=== PATIENT | female | born 1985 | race Caucasian/White ===

== ENCOUNTER 2016-11-18 11:12 | Emergency (ER) | payer MEDICAID ==
[2016-11-18] MEDS ORDERED: ASPIRIN 81 MG TABLET, CHEWABLE PO ONE (11:28)
--- NOTE | 2016-11-18 11:32 | ER Document Report ---
ED Medical Screen (RME) - General Stated Complaint: CHEST/BACK/ARM PAIN Notes: Left-sided chest pain radiation to the arm for several weeks - Related Data Allergies/Adverse Reactions: erythromycin base [Erythromycin Base] Allergy (Unknown, Verified 11/18/16 11:28) Past Medical History Past Surgical History: Reports: Hx Bowel Surgery - polyps removed, Hx Orthopedic Surgery - spinal fusion Physical Exam - Vital signs Vitals: Temp Pulse Resp BP Pulse Ox 98.3 F 106 H 18 130/77 H 98 11/18/16 11:25 11/18/16 11:25 11/18/16 11:25 11/18/16 11:25 11/18/16 11:25 Course - Vital Signs Vital signs: Temp Pulse Resp BP Pulse Ox 98.3 F 106 H 18 130/77 H 98 11/18/16 11:25 11/18/16 11:25 11/18/16 11:25 11/18/16 11:25 11/18/16 11:25
[2016-11-18 12:10] LABS: ABSOLUTE EOSINOPHILS # (AUTO) 0.1 10^3/uL (0.0-0.6); ABSOLUTE LYMPHOCYTES (AUTO) 1.7 10^3/uL (0.5-4.7); ABSOLUTE MONOCYTES (AUTO) 0.6 10^3/uL (0.1-1.4); BASOPHILS % (AUTO) 0.6 % (0-2); EOSINOPHILS % (AUTO) 1.8 % (0-6); HEMATOCRIT 38.6 % (36.0-47.0); HEMOGLOBIN 12.4 g/dL (12.0-15.5); HGB HCT DIFFERENCE -1.4; LYMPHOCYTES % (AUTO) 26.1 % (13-45); MEAN CORPUSCULAR VOLUME 97 fl (80-97); MONOCYTES % (AUTO) 9.7 % (3-13); RED BLOOD COUNT 3.98 10^6/uL (3.72-5.28); RED CELL DISTRIBUTION WIDTH 13.7 % (11.5-14.0); SEGMENTED NEUTROPHILS % (AUTO) 61.8 % (42-78); WHITE BLOOD COUNT 6.5 10^3/uL (4.0-10.5)
[2016-11-18 12:27] LABS: ALANINE AMINOTRANSFERASE 24 U/L (9-52); ALBUMIN 3.7 g/dL (3.5-5.0); ALKALINE PHOSPHATASE 110 U/L (38-126); ANION GAP 11 (5-19); ASPARTATE AMINO TRANSFERASE 26 U/L (14-36); BILIRUBIN,TOTAL 0.3 mg/dL (0.2-1.3); BLOOD UREA NITROGEN 17 mg/dL (7-20); CALCIUM 9.5 mg/dL (8.4-10.2); CARBON DIOXIDE 25 mmol/L (22-30); CHLORIDE 105 mmol/L (98-107); CREATINE KINASE 77 U/L (30-135); CREATININE RESULT 0.66 mg/dL (0.52-1.25); GLUCOSE 79 mg/dL (75-110); POTASSIUM 3.8 mmol/L (3.6-5.0); SODIUM 140.9 mmol/L (137-145); TOTAL PROTEIN 6.2 g/dL (6.3-8.2)
[2016-11-18 12:39] LABS: CREATINE KINASE MB 0.63 ng/mL (<4.55)
[2016-11-18 12:43] LABS: TROPONIN I < 0.012 ng/mL
[2016-11-18] MEDS ORDERED: METOCLOPRAMIDE HCL ORAL SOLN 10 MG/10 ML UDCUP PO ONE (13:05)
[2016-11-18] MEDS ORDERED: LIDOCAINE 2% VISCOUS SOLN 20 ML UDCUP PO ONE (13:05)
[2016-11-18] MEDS ORDERED: MAG HYDROX/AL HYDROX/SIMETH SUSP 30 ML UDCUP PO ONE (13:05)
[2016-11-18] MEDS ORDERED: NORMAL SALINE 1000 ML 1,000 ML IV ONE (13:07)
[2016-11-18] MEDS ORDERED: KETOROLAC TROMETHAMINE INJ/PF 30 MG/1 ML SDV IV ONE (13:45)
[2016-11-18] MEDS ORDERED: NAPROXEN 250 MG TABLET PO ONE (13:46)
[2016-11-18 14:11] LABS: APPEARANCE,URINE CLOUDY; BILIRUBIN,URINE NEGATIVE (NEGATIVE); GLUCOSE, URINE NEGATIVE (NEGATIVE); KETONES,URINE NEGATIVE (NEGATIVE); LEUKOCYTE ESTERASE,URINE MODERATE (NEGATIVE); NITRITE,URINE NEGATIVE (NEGATIVE); PROTEIN,URINE NEGATIVE (NEGATIVE); URINE SPECIFIC GRAVITY 1.025; UROBILINOGEN,URINE NEGATIVE mg/dL (<2.0)
[2016-11-18 15:19] VITALS: BP 116/72
--- NOTE | 2016-11-18 15:20 | ER Document Report ---
ED Cardiac - General Chief Complaint: Chest Pain Stated Complaint: CHEST/BACK/ARM PAIN Mode of Arrival: Ambulatory Information source: Patient Notes: 31-year-old well-appearing female presents to the emergency department complaining of intermittently persistent substernal burning type pain over the last. Patient is also complaining of low back pain. Reports history of chronic low back pain with previous back surgery and followed by pain management clinic. Denies new injury or fall, extremity weakness/numbness/ tingling, saddle numbness, incontinence, urinary retention. Reports history of GERD and states her pain in her mid chest/sternal area is similar in quality and intensity as her acid reflux and worse after eating however seems to be lasting more than the usual. States does not radiate. Also reports has been having left arm numbness in the mornings and states is unsure if this may be because of how she is sleeping. States her arm numbness does not appear to be related to her substernal. Denies fever or recent illness, shortness of breath , nausea or vomiting. TRAVEL OUTSIDE OF THE [place] IN LAST 30 DAYS: No - HPI Is the pain a: Chronic problem Chest pain location: Substernal, Back Chest pain radiation location: None Severity now: Moderate Severity at worst: Moderate Pain level currently: 3 Chest pain precipitating factors: Eating Cardiac risk factors: Smoker Positive cardiac history: No Similar symptoms previously: Yes Recently seen / treated by doctor: No - Related Data Allergies/Adverse Reactions: erythromycin base [Erythromycin Base] Allergy (Unknown, Verified 11/18/16 11:28) Past Medical History - General Information source: Patient - Social History Smoking Status: Current Every Day Smoker Chew tobacco use (# tins/day): No Frequency of alcohol use: Social Drug Abuse: None Lives with: Family Family History: Reviewed & Not Pertinent Patient has suicidal ideation: No Patient has homicidal ideation: No Renal/ Medical History: Denies: Hx Peritoneal Dialysis GI Medical History: Reports: Hx Gastroesophageal Reflux Disease Psychiatric Medical History: Reports: Hx Anxiety, Hx Depression Past Surgical History: Reports: Hx Bowel Surgery - polyps removed, Hx Orthopedic Surgery - spinal fusion - Immunizations Hx Diphtheria, Pertussis, Tetanus Vaccination: Yes Review of Systems - Review of Systems Constitutional: No symptoms reported EENT: No symptoms reported Cardiovascular: See HPI Respiratory: No symptoms reported Gastrointestinal: See HPI Genitourinary: No symptoms reported Female Genitourinary: No symptoms reported Musculoskeletal: See HPI Skin: No symptoms reported Hematologic/Lymphatic: No symptoms reported Neurological/Psychological: No symptoms reported -: Yes All other systems reviewed and negative Physical Exam - Vital signs Vitals: Temp Pulse Resp BP Pulse Ox 98.3 F 106 H 18 130/77 H 98 11/18/16 11:25 11/18/16 11:25 11/18/16 11:25 11/18/16 11:25 11/18/16 11:25 Interpretation: Normal - General General appearance: Appears well, Alert In distress: None - HEENT Head: Normocephalic, Atraumatic Eyes: Normal Pupils: PERRL - Respiratory Respiratory status: No respiratory distress Chest status: Nontender Breath sounds: Normal Chest palpation: Normal - Cardiovascular Rhythm: Regular Heart sounds: Normal auscultation Murmur: No Pulses: Normal: Radial, Posterior tibial, Dorsalis pedis Normal capillary refill: Yes - Abdominal Inspection: Normal Distension: No distension Bowel sounds: Normal Tenderness: Nontender. No: Tender, McBurney's point, Zuñiga's sign, Guarding, Rebound, Other Organomegaly: No organomegaly - Back Back: Tender - Mild tenderness to palpation to bilateral paraspinal musculature lumbar level. Full range of motion without paresthesias or neurological deficits.. No: Normal, Nontender, Deformity/step-off, CVA tenderness, Vertebra tenderness, Scars, Scoliosis, Wounds, Other - Extremities General upper extremity: Normal inspection, Nontender, Normal color, Normal ROM , Normal strength, Normal temperature. No: Tender, Edema General lower extremity: Normal inspection, Nontender, Normal color, Normal ROM , Normal strength, Normal temperature, Normal weight bearing. No: Tender, Edema , Oxana's sign - Neurological Neuro grossly intact: Yes Cognition: Normal Orientation: AAOx4 Danilo Coma Scale Eye Opening: Spontaneous Danilo Coma Scale Verbal: Oriented Danilo Coma Scale Motor: Obeys Commands Danilo Coma Scale Total: 15 Speech: Normal Motor strength normal: LUE, RUE, LLE, RLE Sensory: Normal - Psychological Associated symptoms: Normal affect, Normal mood - Skin Skin Temperature: Warm Skin Moisture: Dry Skin Color: Normal Course - Re-evaluation Re-evalutation: 11/18/16 15:30 Patient hemodynamically stable, in no distress, afebrile, and very well- appearing. Tolerating oral fluids without difficulty or vomiting. Patient reports substernal burning pain completely resolved after GI cocktail. Substernal pain not suggestive of cardiac or vascular etiology at this time. Chest x-ray and labs including cardiac enzymes and d-dimer unremarkable. The patient presents with back pain without signs of spinal cord compression, cauda equina syndrome, infection, aneurysm, or other serious etiology. The patient is neurologically intact, independently and steadily ambulatory without paresthesias or neurological deficits. Given the extremely low risk of these diagnoses further testing and evaluation for these possibilities does not appear to be indicated at this time. Patient appears stable for discharge and agrees with home care, follow-up with PCP, ED return precautions. - Vital Signs Vital signs: Temp Pulse Resp BP Pulse Ox 98.3 F 106 H 28 H 116/72 94 11/18/16 15:48 11/18/16 11:25 11/18/16 15:01 11/18/16 15:00 11/18/16 15:01 Selected Entries 11/18/16 11/18/16 11/18/16 14:00 14:01 15:00 Heart Rate ( 85 Monitors) Respiratory 18 Rate Blood Pressure 116/72 Blood Pressure 86 Mean O2 Sat by Pulse 96 Oximetry - Laboratory Result Diagrams: 11/18/16 11:50 11/18/16 11:50 Laboratory results interpreted by me: 11/18/16 11/18/16 11:50 13:30 Total Protein 6.2 L Ur Leukocyte Esterase MODERATE H - Diagnostic Test Radiology reviewed: Image reviewed, Reports reviewed - EKG Interpretation by Co EKG shows normal: Sinus rhythm, Pearson, Intervals, QRS Complexes, ST-T Waves Rate: Normal Rhythm: NSR When compared to previous EKG there are: No significant change Discharge - Discharge Clinical Impression: Substernal chest pain, Epigastric burning sensation Low back pain Qualifiers: Chronicity: chronic Back pain laterality: bilateral Sciatica presence: without sciatica Qualified Code(s): M54.5 - Low back pain Condition: Stable Disposition: HOME, SELF-CARE Instructions: Chest Pain of Unclear Cause ([facility]), Evaluation of Upper Abdominal Pain ([facility]), Antacid Therapy ([facility]), Acid-Suppressing Medication ([facility]), Chronic Back Pain ([facility]), Chronic Pain Control ([facility]), Low-Fat Diet ([facility]) Additional Instructions: Follow-up with your primary care provider in the next 1-2 days. Return to the Emergency Department for any worsening symptoms or concerns. Prescriptions: Ranitidine HCl [Zantac 150 mg Tablet] 150 mg PO BID #30 tablet Forms: Elevated Blood Pressure Referrals: ODILIA MALDONADO MD [ACTIVE STAFF] - Follow up in 3-5 days
--- NOTE | 2016-11-18 18:33 | EKG REPORT ---
SEVERITY:- BORDERLINE ECG - SINUS RHYTHM BORDERLINE T ABNORMALITIES, INFERIOR LEADS : Confirmed by: Beckie Cotton MD 18-Nov-2016 18:32:56
== END 2016-11-18 15:48 | disposition home or self-care (01) ==
LOC: ER 11:12
DX: R07.89 Other chest pain (principal); R19.8 Other specified symptoms and signs involving the digestive system and abdomen; R20.0 Anesthesia of skin; M54.5 Low back pain; G89.29 Other chronic pain; F17.200 Nicotine dependence, unspecified, uncomplicated; Z98.890 Other specified postprocedural states; Z87.19 Personal history of other diseases of the digestive system; Z88.1 Allergy status to other antibiotic agents
CPT/HCPCS: 93005; 99285; 96360; 36415; 87086; 82553; 82550; 84703; 85025; 80053; 81001; 84484; 85379; 71010; 93010; J3490; J7030

== ENCOUNTER 2016-12-01 13:44 | Emergency (ER) | payer MEDICAID ==
--- NOTE | 2016-12-01 13:51 | ER Document Report ---
ED Medical Screen (RME) - General Stated Complaint: FACIAL SWELLING Time seen by provider: 13:50 Mode of Arrival: Ambulatory Information source: Patient Notes: 31-year-old female complaining of dental abscess lower left. She's been on amoxicillin and keep flex and the swelling developed and was told to come to the emergency department. No fever. I have greeted and performed a rapid initial assessment of this patient. A comprehensive ED assessment, evaluation of the patient, analysis of test results , and completion of the medical decision making process will be contacted by additional ED providers. TRAVEL OUTSIDE OF THE [place] IN LAST 30 DAYS: No - Related Data Allergies/Adverse Reactions: erythromycin base [Erythromycin Base] Allergy (Unknown, Verified 11/18/16 11:28) Past Medical History Renal/ Medical History: Denies: Hx Peritoneal Dialysis GI Medical History: Reports: Hx Gastroesophageal Reflux Disease Psychiatric Medical History: Reports: Hx Anxiety, Hx Depression Past Surgical History: Reports: Hx Bowel Surgery - polyps removed, Hx Orthopedic Surgery - spinal fusion - Immunizations Hx Diphtheria, Pertussis, Tetanus Vaccination: Yes
[2016-12-01] MEDS ORDERED: METHYLPREDNISOLONE INJ 125 MG/2 ML SDV IV ONE (14:23)
[2016-12-01] MEDS ORDERED: CLINDAMYCIN 900 MG/D5W RTU 50 ML IV ONE (14:24)
[2016-12-01] MEDS ORDERED: NORMAL SALINE 1000 ML 1,000 ML IV PRN (14:25)
--- NOTE | 2016-12-01 15:25 | ER Document Report ---
ED Oral Problem - General Chief Complaint: Toothache Stated Complaint: FACIAL SWELLING Mode of Arrival: Ambulatory Notes: patient is a 31 year old female p/w worsenig facial swelling over the course of 36 hours. Patient states she has a h/o fractured teeth for about one year but hasnt had a plan to fix them. Her dentist is Dr. Guerra. She states her symptoms started on 11/26 with pain and swelling so she started a home course of amoxicillin that was left over from a previous infection. She states her swelling slowly got worse so she followed up with Dr Guerra, he switched her to Keflex on Saturday. She was told to come to the Ed with worsening swelling. She states her cheek and neck have become swollen over the past 24 hours. She admits to fevers at home of 103 and chills. She has had difficulty swallowing due to pain , denies muffled speech, foul odor or discharge. PMH: has one kidney, chronic low back pain, GERD all: macrolides TRAVEL OUTSIDE OF THE [place] IN LAST 30 DAYS: No - HPI Patient complains to provider of: Jaw pain, Swelling of face, Swelling of jaw, Toothache. No: Foreign body, Sore throat - Related Data Allergies/Adverse Reactions: erythromycin base [Erythromycin Base] Allergy (Unknown, Verified 12/01/16 13:56) Past Medical History - General Information source: Patient - Social History Smoking Status: Current Every Day Smoker Chew tobacco use (# tins/day): No Frequency of alcohol use: Social Drug Abuse: None Family History: Reviewed & Not Pertinent Patient has suicidal ideation: No Patient has homicidal ideation: No Renal/ Medical History: Denies: Hx Peritoneal Dialysis GI Medical History: Reports: Hx Gastroesophageal Reflux Disease Psychiatric Medical History: Reports: Hx Anxiety, Hx Depression Past Surgical History: Reports: Hx Bowel Surgery - polyps removed, Hx Orthopedic Surgery - spinal fusion - Immunizations Hx Diphtheria, Pertussis, Tetanus Vaccination: Yes Review of Systems - Review of Systems Constitutional: See HPI EENT: Throat pain, Difficulty swallowing, Mouth pain, Mouth swelling, Dental problem. denies: Eye pain, Eye discharge, Blurred vision, Tearing, Double vision, Ear pain, Ear discharge, Nose pain, Nose congestion, Nose discharge, Sinus pressure, Sinus discharge, Throat swelling, Vertigo Cardiovascular: No symptoms reported Respiratory: No symptoms reported Gastrointestinal: No symptoms reported Genitourinary: No symptoms reported Female Genitourinary: No symptoms reported Musculoskeletal: No symptoms reported Skin: No symptoms reported Hematologic/Lymphatic: No symptoms reported Neurological/Psychological: No symptoms reported Physical Exam - Vital signs Vitals: Temp Pulse Resp BP Pulse Ox 98.3 F 100 20 111/76 99 12/01/16 13:51 12/01/16 13:51 12/01/16 13:51 12/01/16 13:51 12/01/16 13:51 - General General appearance: Appears well, Alert In distress: Mild - HEENT Head: Normocephalic, Atraumatic Eyes: Normal Conjunctiva: Normal Ears: Normal Nasal: Normal Mouth/Lips: Caries, Dental fracture - tooth number 18. No: Angioedema Mucous membranes: Normal Pharynx: Normal, Other - swelling in her cheek and tender. No: Erythema, Exudate, Peritonsillar abscess, Post nasal drainage, Retropharyngeal abscess, Tonsillar hypertrophy, Uvular edema Neck: Other - swelling and tenderness along the left part of her neck, erythematous - Respiratory Respiratory status: No respiratory distress Chest status: Nontender Breath sounds: Normal Chest palpation: Normal - Cardiovascular Rhythm: Regular Heart sounds: Normal auscultation Pulses: Normal: Radial Course - Re-evaluation Re-evalutation: 12/01/16 17:05 Patient is a 31-year-old female who is hemodynamically stable, no acute distress and afebrile. Present in the emergency department with worsening swelling of her face. Patient has known dental fracture of tooth 18 with dental carry surrounding and 17 and 19. She had seen Dr. Guerra and sent home on [facility] and [place] and expected to follow-up in 10 days for was referred to us for worsening swelling. CT of the soft tissue did not reveal any abscess or cellulitis. No evidence of anemia, leukocytosis. Patient has received IV fluids as well as a dose of Phenergan 100 mg of IV clindamycin. She'll be discharged home on by mouth antibiotics and pain medication with instruction to follow up with Dr. Guerra as scheduled as well as her to the emergency department with worsening swelling over the course of 24 hours Per [facility] protocol and guidelines, this case was discussed with supervising physician Dr. Jovan Herrera prior to discharge 12/01/16 17:42 Offered to patient to do a Sensorcaine dental block. Upon first try patient states that it hurt too much so she refused. - Vital Signs Vital signs: Temp Pulse Resp BP Pulse Ox 98.3 F 100 20 111/76 99 12/01/16 13:51 12/01/16 13:51 12/01/16 13:51 12/01/16 13:51 12/01/16 13:51 - Laboratory Result Diagrams: 12/01/16 15:00 12/01/16 15:00 Laboratory results interpreted by me: 12/01/16 15:00 Alkaline Phosphatase 137 H - Diagnostic Test Radiology reviewed: Reports reviewed Discharge - Discharge Clinical Impression: Cellulitis Qualifiers: Site of cellulitis: face Qualified Code(s): L03.211 - Cellulitis of face Condition: Good Disposition: HOME, SELF-CARE Instructions: Clindamycin ([facility]), Toothache ([facility]), Oral Narcotic Medication ([facility] ), [facility] Additional Instructions: Please follow-up with Dr. Guerra on your scheduled date Prescriptions: Hydrocodone/Acetaminophen [[place] 7.5-325 Tablet] 1 each PO Q6HP PRN #20 tablet PRN Reason: Clindamycin HCl 300 mg PO QID 10 Days Ibuprofen [Motrin 800 mg Tablet] 800 mg PO Q8H PRN #30 tab PRN Reason:
[2016-12-01 15:29] LABS: ABSOLUTE EOSINOPHILS # (AUTO) 0.1 10^3/uL (0.0-0.6); ABSOLUTE LYMPHOCYTES (AUTO) 1.7 10^3/uL (0.5-4.7); ABSOLUTE MONOCYTES (AUTO) 0.7 10^3/uL (0.1-1.4); ABSOLUTE NEUT (AUTO) 6.4 10^3/uL (1.7-8.2); BASOPHILS % (AUTO) 0.4 % (0-2); HEMATOCRIT 40.3 % (36.0-47.0); HEMOGLOBIN 13.1 g/dL (12.0-15.5); LYMPHOCYTES % (AUTO) 19.1 % (13-45); MEAN CORPUSCULAR HEMOGLOBIN 30.7 pg (27.0-33.4); MEAN CORPUSCULAR HGB CONC 32.5 g/dL (32.0-36.0); MEAN CORPUSCULAR VOLUME 95 fl (80-97); MONOCYTES % (AUTO) 7.3 % (3-13); RED BLOOD COUNT 4.26 10^6/uL (3.72-5.28); SEGMENTED NEUTROPHILS % (AUTO) 72.2 % (42-78); WHITE BLOOD COUNT 8.9 10^3/uL (4.0-10.5)
[2016-12-01 15:46] LABS: ALANINE AMINOTRANSFERASE 41 U/L (9-52); ALBUMIN 4.4 g/dL (3.5-5.0); ALKALINE PHOSPHATASE 137 U/L (38-126); ANION GAP 10 (5-19); ASPARTATE AMINO TRANSFERASE 25 U/L (14-36); BILIRUBIN,TOTAL 0.6 mg/dL (0.2-1.3); BLOOD UREA NITROGEN 12 mg/dL (7-20); CALCIUM 9.8 mg/dL (8.4-10.2); CARBON DIOXIDE 27 mmol/L (22-30); CHLORIDE 105 mmol/L (98-107); CREATININE RESULT 0.67 mg/dL (0.52-1.25); GLUCOSE 85 mg/dL (75-110); POTASSIUM 4.3 mmol/L (3.6-5.0); SODIUM 142.2 mmol/L (137-145); TOTAL PROTEIN 7.1 g/dL (6.3-8.2)
[2016-12-01] MEDS ORDERED: MORPHINE SULFATE 10 MG/ML INJ IV ONE (15:55)
[2016-12-01] MEDS ORDERED: BUPIVACAINE HCL 0.5 % INJ/PF 30 ML SDV INJ ONE (17:09)
[2016-12-01 18:01] VITALS: BP 115/68
== END 2016-12-01 17:55 | disposition home or self-care (01) ==
LOC: ER 13:44
DX: L03.211 Cellulitis of face (principal); K08.9 Disorder of teeth and supporting structures, unspecified; R68.84 Jaw pain; F17.200 Nicotine dependence, unspecified, uncomplicated; Z88.3 Allergy status to other anti-infective agents
CPT/HCPCS: 99283; 96375; 96365; 36415; 87040; 84703; 85025; 80053; 70491; J2930; J2270

== ENCOUNTER 2017-04-27 17:00 | Emergency (ER) | payer SELFPAY ==
[2017-04-27] MEDS ORDERED: LIDOCAINE 1% INJ-PF (10 MG/ML) 30 ML SDV INJ ONE (18:19)
[2017-04-27] MEDS ORDERED: IBUPROFEN 800 MG TABLET PO ONE (18:56)
--- NOTE | 2017-04-27 18:56 | ER Document Report ---
HPI - HPI Patient complains to provider of: finger pain Pain Level: 4 Context: patient had some trays collapse near her at work injuring her left middle nail and left thigh with bruising. left 3rd digit with broken acrylic and not sure if it is avulsed. admits to bleeding and pain. Thigh with brusing, able to ambulate without difficulty. ROM and sensation normal. - REPRODUCTIVE Reproductive: DENIES: : - DERM Skin Color: Normal Past Medical History - Social History Smoking Status: Current Every Day Smoker Family History: Reviewed & Not Pertinent Patient has suicidal ideation: No Patient has homicidal ideation: No Renal/ Medical History: Denies: Hx Peritoneal Dialysis GI Medical History: Reports: Hx Gastroesophageal Reflux Disease Psychiatric Medical History: Reports: Hx Anxiety, Hx Depression Past Surgical History: Reports: Hx Bowel Surgery - polyps removed, Hx Orthopedic Surgery - spinal fusion - Immunizations Hx Diphtheria, Pertussis, Tetanus Vaccination: Yes Vertical Provider Document - CONSTITUTIONAL Agree With Documented VS: Yes Exam Limitations: No Limitations General Appearance: WD/WN, No Apparent Distress - INFECTION CONTROL TRAVEL OUTSIDE OF THE [place] IN LAST 30 DAYS: No - RESPIRATORY O2 Sat by Pulse Oximetry: 100 - CARDIOVASCULAR Pulses: Normal: Radial, Dorsalis pedis - MUSCULOSKELETAL/EXTREMETIES Musculoskeletal/Extremeties: MAEW, FROM, Non-Tender - lower extremities, Tender - left 3rd digit, finger block performed and no nail avulsion noted, No Edema - NEURO Level of Consciousness: Awake, Alert, Appropriate Motor/Sensory: No Motor Deficit, No Sensory Deficit - DERM Integumentary: Warm, Dry, No Rash Course - Re-evaluation Re-evalutation: 04/27/17 20:41 Is a 32-year-old female who is hemodynamic stable, no acute distress and afebrile. No evidence of nail avulsion or nailbed injury. By with evidence of bruising but no clinical suspicion for femur fracture given patient's distal pulses are intact with normal range of motion sensation normal gait and no pain. Stable for discharge home. - Vital Signs Vital signs: Temp Pulse Resp BP Pulse Ox 98.8 F 93 16 119/90 H 100 04/27/17 17:03 04/27/17 17:03 04/27/17 17:03 04/27/17 17:03 04/27/17 17:03 Discharge - Discharge Clinical Impression: Injury of nail, Contusion Condition: Good Disposition: HOME, SELF-CARE Instructions: Contusion ([facility]), Ice Packs ([facility]) Prescriptions: Ibuprofen [Motrin 800 mg Tablet] 800 mg PO Q8H PRN #30 tab PRN Reason: Forms: Return to Work
[2017-04-27 19:07] VITALS: BP 137/104
== END 2017-04-27 19:11 | disposition home or self-care (01) ==
LOC: ER 17:00
DX: S69.92XA Unspecified injury of left wrist, hand and finger(s), initial encounter (principal); S70.12XA Contusion of left thigh, initial encounter; M79.645 Pain in left finger(s); X58.XXXA Exposure to other specified factors, initial encounter; F17.200 Nicotine dependence, unspecified, uncomplicated
CPT/HCPCS: 99283; J3490

== ENCOUNTER 2017-05-03 18:08 | Emergency (ER) | payer SELFPAY | END 2017-05-03 18:10 | disposition left against medical advice (07) | LOC: ER 18:08 | DX: Z53.21 Procedure and treatment not carried out due to patient leaving prior to being seen by health care provider (principal) ==

== ENCOUNTER 2017-08-18 08:54 | Emergency (ER) | payer SELFPAY ==
[2017-08-18] MEDS ORDERED: ONDANSETRON 4 MG TAB.RAPDIS SL ONE (09:13)
[2017-08-18] MEDS ORDERED: HYDROCODONE/ACETAMINOPHEN 5-325 MG TABLET PO ONE (09:13)
--- NOTE | 2017-08-18 09:14 | ER Document Report ---
ED Medical Screen (RME) - General Chief Complaint: Abdominal Pain Stated Complaint: ABDOMINAL PAIN Time Seen by Provider: 08/18/17 09:12 Mode of Arrival: Ambulatory Information source: Patient TRAVEL OUTSIDE OF THE [place] IN LAST 30 DAYS: No - HPI Patient complains to provider of: Abdomen/pelvic pain Onset: This morning Notes: 08/18/17 09:13 Patient is a 32-year-old female presenting to the emergency room today complaining of stabbing pain in her right lower abdomen/right pelvis with one episode of vomiting, states it started as a crampy pain and is now intermittent stabbing, no history of similar symptoms previously, no diarrhea, states she is unable to urinate at present - Related Data Allergies/Adverse Reactions: erythromycin base [Erythromycin Base] Allergy (Unknown, Verified 08/18/17 08:57) Past Medical History - Social History Chew tobacco use (# tins/day): No Frequency of alcohol use: Occasional Drug Abuse: None Renal/ Medical History: Denies: Hx Peritoneal Dialysis GI Medical History: Reports: Hx Gastroesophageal Reflux Disease Psychiatric Medical History: Reports: Hx Anxiety, Hx Depression Past Surgical History: Reports: Hx Bowel Surgery - polyps removed, Hx Orthopedic Surgery - spinal fusion, Hx Tubal Ligation - Immunizations Hx Diphtheria, Pertussis, Tetanus Vaccination: Yes - 2013 History of Influenza Vaccine for 08/2017 - 01/2018 Season: No Physical Exam - Vital signs Vitals: Temp Pulse Resp BP Pulse Ox 98.2 F 80 20 102/63 98 08/18/17 08:57 08/18/17 08:57 08/18/17 08:57 08/18/17 08:57 08/18/17 08:57 Course - Vital Signs Vital signs: Temp Pulse Resp BP Pulse Ox 98.2 F 80 20 102/63 98 08/18/17 08:57 08/18/17 08:57 08/18/17 08:57 08/18/17 08:57 08/18/17 08:57
[2017-08-18 09:44] LABS: APPEARANCE,URINE SLIGHTLY-CLOUDY; BILIRUBIN,URINE NEGATIVE (NEGATIVE); GLUCOSE, URINE NEGATIVE (NEGATIVE); KETONES,URINE NEGATIVE (NEGATIVE); LEUKOCYTE ESTERASE,URINE TRACE (NEGATIVE); NITRITE,URINE NEGATIVE (NEGATIVE); PROTEIN,URINE NEGATIVE (NEGATIVE)
--- NOTE | 2017-08-18 09:49 | ER Document Report ---
ED GI/ - General Mode of Arrival: Ambulatory Information source: Patient TRAVEL OUTSIDE OF THE [place] IN LAST 30 DAYS: No - HPI Patient complains to provider of: Abdominal pain Quality of pain: Cramping, Stabbing Location: RLQ Associated symptoms: Other - see HPI <NADEEN GARCIA - Last Filed: 08/18/17 09:45> <MATTHEW MERCADO - Last Filed: 08/18/17 13:23> - General Chief Complaint: Abdominal Pain Stated Complaint: ABDOMINAL PAIN Time Seen by Provider: 08/18/17 09:12 Notes: Patient is a 32 year old female who presents to the ED with complaints of RLQ abdominal pain that has been cramping since yesterday and worsened with intermittent stabbing pain today. Patient has had nausea and vomiting x1. She denies any radiation of the pain. Her LMP was 2 months ago, she states this is not abnormal for her. (NADEEN GARCIA) 13:15 The patient reports that she has had a little bit of a vaginal discharge recently. She reports she had not been sexually active for several years until the past month. She is agreeable to the urine PCR testing for STD, and covering her with Rocephin and doxycycline in case this is an infectious issue. (MATTHEW MERCADO) - Related Data Allergies/Adverse Reactions: erythromycin base [Erythromycin Base] Allergy (Unknown, Verified 08/18/17 08:57) Past Medical History - General Information source: Patient - Social History Smoking Status: Current Every Day Smoker Cigarette use (# per day): Yes - 1.5 pack Chew tobacco use (# tins/day): No Frequency of alcohol use: 3 days per week Drug Abuse: None Family History: Reviewed & Not Pertinent Renal/ Medical History: Denies: Hx Peritoneal Dialysis GI Medical History: Reports: Hx Gastroesophageal Reflux Disease Psychiatric Medical History: Reports: Hx Anxiety, Hx Depression Past Surgical History: Reports: Hx Bowel Surgery - polyps removed, Hx Orthopedic Surgery - spinal fusion, Hx Tubal Ligation - Immunizations Hx Diphtheria, Pertussis, Tetanus Vaccination: Yes - 2013 <NADEEN GARCIA - Last Filed: 08/18/17 09:45> Review of Systems - Review of Systems Constitutional: No symptoms reported EENT: No symptoms reported Cardiovascular: No symptoms reported Respiratory: No symptoms reported Gastrointestinal: See HPI, Abdominal pain, Nausea, Vomiting Genitourinary: No symptoms reported Female Genitourinary: No symptoms reported, Last menstrual period - 2 months ago , not abnormal for patient Musculoskeletal: No symptoms reported Skin: No symptoms reported Hematologic/Lymphatic: No symptoms reported Neurological/Psychological: No symptoms reported <NADEEN GARCIA - Last Filed: 08/18/17 09:45> Physical Exam - General General appearance: Appears well, Alert In distress: None - HEENT Head: Normocephalic, Atraumatic Eyes: Normal Extraocular movements intact: Yes Pupils: PERRL - Respiratory Respiratory status: No respiratory distress Breath sounds: Normal - Cardiovascular Rhythm: Regular Heart sounds: Normal auscultation Murmur: No - Abdominal Inspection: Normal Bowel sounds: Normal Tenderness: Tender - RLQ and pelvic - Back Back: Normal - Extremities General upper extremity: Normal inspection, Normal strength General lower extremity: Normal inspection, Normal strength - Neurological Neuro grossly intact: Yes - Psychological Associated symptoms: Normal affect, Normal mood - Skin Skin Temperature: Warm Skin Moisture: Dry Skin Color: Normal <NADEEN GARCIA - Last Filed: 08/18/17 09:45> - Vital signs Vitals: Temp Pulse Resp BP Pulse Ox 98.2 F 80 20 102/63 98 08/18/17 08:57 08/18/17 08:57 08/18/17 08:57 08/18/17 08:57 08/18/17 08:57 Course - Laboratory Result Diagrams: 08/18/17 09:30 08/18/17 09:30 <NADEEN GARCIA - Last Filed: 08/18/17 09:45> - Laboratory Result Diagrams: 08/18/17 09:30 08/18/17 09:30 - Diagnostic Test Radiology reviewed: Image reviewed, Reports reviewed - Transvaginal ultrasound is normal. KUB shows a lot of stool in the right colon. <MATTHEW MERCADO - Last Filed: 08/18/17 13:23> - Vital Signs Vital signs: Temp Pulse Resp BP Pulse Ox 98.2 F 80 20 102/63 98 08/18/17 08:57 08/18/17 08:57 08/18/17 08:57 08/18/17 08:57 08/18/17 08:57 - Laboratory Laboratory results interpreted by me: 08/18/17 08/18/17 09:20 09:30 Sodium 146.1 H Chloride 110 H Urine Urobilinogen 2.0 H Ur Leukocyte Esterase TRACE H Discharge <LUCIEN GARCIAANDRA - Last Filed: 08/18/17 09:45> <MATTHEW MERCADO - Last Filed: 08/18/17 13:23> - Discharge Clinical Impression: Pelvic pain Condition: Stable Disposition: HOME, SELF-CARE Additional Instructions: Pelvic Pain: There are many causes of pain in the pelvic area. The cause could be the tubes, ovaries, uterus, intestines, appendix, pelvic muscles and connective tissue, or the urinary tract. The cause of your pelvic pain is not clear. However, it seems safe to treat you outside the hospital. If the pain sounds like a temporary problem, we sometimes wait to see if it goes away. Other patients may need additional tests, such as pelvic ultrasound or cultures. Conditions may change. Call us or come back for reexamination if any problems occur, such as: (1) Pain that becomes more severe, steady, or becomes concentrated in one specific area. Also, pain that is more severe with movement or coughing. (2) Vomiting that persists or becomes more frequent. (3) Blood in the vomitus, urine, or bowel movements. Blood in the stool may have a tarry or black appearance. (4) Shaking chills or fever greater than 100 degrees. (5) The abdomen becomes more distended or swollen. (6) Bowel movements cease. (7) Heavy vaginal bleeding. The ultrasound, x-ray, and lab work do not show a clear explanation for your right sided pelvic pain. You will be placed on antibiotics and special testing of a dirty catch urine will be done to screen for STDs. Take Tylenol and ibuprofen or Aleve for your discomfort. Follow-up with a local medical doctor or with [facility] if not improving. RETURN TO THE EMERGENCY ROOM IF ANY NEW OR WORSENING SYMPTOMS. Prescriptions: Doxycycline Hyclate 100 mg PO BID #14 tablet Referrals: [facility] [Provider Group] - Follow up as needed Scribe Attestation: 08/18/17 10:19 I personally performed the services described in the documentation, reviewed and edited the documentation which was dictated to the scribe in my presence, and it accurately records my words and actions. (MATTHEW MERCADO) Scribe Documentation - Scribe Written by Sudhir:: sudhir Campos, 08/18/17, 0945 acting as scribe for :: Wilmer <NADEEN GARCIA - Last Filed: 08/18/17 09:45>
[2017-08-18 09:53] LABS: ABSOLUTE EOSINOPHILS # (AUTO) 0.2 10^3/uL (0.0-0.6); ABSOLUTE LYMPHOCYTES (AUTO) 3.6 10^3/uL (0.5-4.7); ABSOLUTE MONOCYTES (AUTO) 0.6 10^3/uL (0.1-1.4); ABSOLUTE NEUT (AUTO) 5.4 10^3/uL (1.7-8.2); BASOPHILS % (AUTO) 0.4 % (0-2); EOSINOPHILS % (AUTO) 1.9 % (0-6); HEMATOCRIT 37.1 % (36.0-47.0); HEMOGLOBIN 12.5 g/dL (12.0-15.5); HGB HCT DIFFERENCE 0.4; LYMPHOCYTES % (AUTO) 36.8 % (13-45); MEAN CORPUSCULAR HEMOGLOBIN 29.3 pg (27.0-33.4); MEAN CORPUSCULAR HGB CONC 33.6 g/dL (32.0-36.0); MEAN CORPUSCULAR VOLUME 87 fl (80-97); MONOCYTES % (AUTO) 6.3 % (3-13); RED BLOOD COUNT 4.26 10^6/uL (3.72-5.28); RED CELL DISTRIBUTION WIDTH 13.9 % (11.5-14.0); SEGMENTED NEUTROPHILS % (AUTO) 54.6 % (42-78); WHITE BLOOD COUNT 9.9 10^3/uL (4.0-10.5)
[2017-08-18 10:13] LABS: ALANINE AMINOTRANSFERASE 30 U/L (9-52); ALKALINE PHOSPHATASE 121 U/L (38-126); ANION GAP 11 (5-19); ASPARTATE AMINO TRANSFERASE 16 U/L (14-36); BILIRUBIN,DIRECT 0.3 mg/dL (0.0-0.4); BILIRUBIN,TOTAL 0.3 mg/dL (0.2-1.3); BLOOD UREA NITROGEN 13 mg/dL (7-20); CALCIUM 9.9 mg/dL (8.4-10.2); CARBON DIOXIDE 25 mmol/L (22-30); CHLORIDE 110 mmol/L (98-107); CREATININE RESULT 0.71 mg/dL (0.52-1.25); GLUCOSE 88 mg/dL (75-110); LIPASE 53.5 U/L (23-300); POTASSIUM 4.2 mmol/L (3.6-5.0); SODIUM 146.1 mmol/L (137-145); TOTAL PROTEIN 6.8 g/dL (6.3-8.2)
--- NOTE | 2017-08-18 11:59 | RADIOLOGY REPORT (SQ) ---
EXAM DESCRIPTION: U/S NON-OB PELVIS TV W/O DOP COMPLETED DATE/TIME: 08/18/2017 11:20 am REASON FOR STUDY: Right pelvic pain COMPARISON: CT abdomen pelvis 10/03/2011 TECHNIQUE: Dynamic and static grayscale images acquired of the pelvis via transvaginal approach and recorded on PACS. Additional selected color Doppler and spectral images recorded. LIMITATIONS: None. FINDINGS: UTERUS: Contour normal. No mass. Uterus is 10.2 x 6.1 x 4.2 cm in size. ENDOMETRIAL STRIPE: No focal or generalized thickening. No masses. 12 mm in thickness. CERVIX: No nabothian cysts. Closed, 3.1 cm in length. RIGHT OVARY: No abnormal masses. Right ovary 3.1 x 2.6 x 2.1 cm in size. RIGHT OVARY DOPPLER: Normal arterial vascular flow without evidence for torsion. LEFT OVARY: No abnormal masses. Left ovary 3.5 x 2.4 x 1.6 cm in size. LEFT OVARY DOPPLER: Normal arterial vascular flow without evidence for torsion. FREE FLUID: None noted. OTHER: No other significant finding. IMPRESSION: NORMAL TRANSVAGINAL PELVIC ULTRASOUND. TECHNICAL DOCUMENTATION: JOB ID: [id number] [employer]- All Rights Reserved
--- NOTE | 2017-08-18 12:46 | RADIOLOGY REPORT (SQ) ---
EXAM DESCRIPTION: KUB/ABDOMEN (SINGLE VIEW) COMPLETED DATE/TIME: 08/18/2017 12:23 pm REASON FOR STUDY: RLQ abdominal pain COMPARISON: CT abdomen pelvis 10/03/2017 NUMBER OF VIEWS: One view. TECHNIQUE: Supine radiographic image of the abdomen acquired. LIMITATIONS: None. FINDINGS: BOWEL GAS PATTERN: Normal bowel gas pattern. No dilated loops. CALCIFICATIONS: No suspicious calcifications. SOFT TISSUES: No gross mass or suggestion of organomegaly. HARDWARE: Lower lumbar fusion at L5-S1 with hardware BONES: No acute fracture. No worrisome bone lesions. OTHER: No other significant finding. IMPRESSION: NO RADIOGRAPHIC EVIDENCE FOR ACUTE ABDOMINAL DISEASE. TECHNICAL DOCUMENTATION: JOB ID: [id number] [employer]- All Rights Reserved
[2017-08-18] MEDS ORDERED: CEFTRIAXONE INJ 1000 MG VIAL IM ONE (13:17)
[2017-08-18] MEDS ORDERED: LIDOCAINE 1% INJ-PF (10 MG/ML) 30 ML SDV INJ ONE (13:17)
[2017-08-18 14:03] VITALS: BP 101/62
[2017-08-18 15:33] LABS: CHLAM PCR NOT DETECTED (NOT DETECT)
== END 2017-08-18 14:03 | disposition home or self-care (01) ==
LOC: ER 08:54
DX: R10.2 Pelvic and perineal pain (principal); R10.31 Right lower quadrant pain; N89.8 Other specified noninflammatory disorders of vagina; F17.210 Nicotine dependence, cigarettes, uncomplicated
CPT/HCPCS: 99284; 96372; 51701; 36415; 87086; 83690; 84703; 85025; 80053; 81001; 87491; 87591; 74000; 76830; S0119; J3490; J0696

== ENCOUNTER 2017-09-14 06:57 | Emergency (ER) | payer SELFPAY ==
[2017-09-14 07:11] VITALS: BP 124/77
[2017-09-14] MEDS ORDERED: ACETAMINOPHEN 325 MG TABLET PO ONE (07:12)
--- NOTE | 2017-09-14 07:42 | ER Document Report ---
HPI - HPI Patient complains to provider of: left hand pain Onset: Just prior to arrival Onset/Duration: Sudden Quality of pain: Achy Severity: Severe Pain Level: 5 Context: Patient presents emergency department with complaints of left hand pain. Patient reports she slammed her hand in the dryer this morning. Patient complains of pain from her fingertips to her elbow. No matter where I touch she complains of pain. She denies past medical history of injury to the hand but reports broken arm. Patient also complains of UTI symptoms, frequency, foul smelling urine, this past week has been taking Azo. No complaints of fever vomiting diarrhea. She reports she took Motrin prior to arrival Associated Symptoms: None Exacerbated by: Movement Relieved by: Denies Similar symptoms previously: No Recently seen / treated by doctor: No - REPRODUCTIVE Reproductive: DENIES: : - DERM Skin Color: Normal Past Medical History - General Information source: Patient Last Menstrual Period: 2 weeks ago - Social History Smoking Status: Current Every Day Smoker Cigarette use (# per day): Yes Frequency of alcohol use: None Drug Abuse: None Family History: Reviewed & Not Pertinent Patient has suicidal ideation: No Patient has homicidal ideation: No Renal/ Medical History: Denies: Hx Peritoneal Dialysis Malignancy Medical History: Reports: Hx Skin Cancer GI Medical History: Reports: Hx Gastroesophageal Reflux Disease Psychiatric Medical History: Reports: Hx Anxiety, Hx Depression Past Surgical History: Reports: Hx Bowel Surgery - polyps removed, Hx Orthopedic Surgery - spinal fusion, Hx Tubal Ligation - Immunizations Hx Diphtheria, Pertussis, Tetanus Vaccination: Yes - 2013 [facility] Provider Document - CONSTITUTIONAL Agree With Documented VS: Yes Exam Limitations: No Limitations General Appearance: WD/WN, Moderate Distress - yells out in pain no matter where I touch on her left hand to her left elbow - INFECTION CONTROL TRAVEL OUTSIDE OF THE [place] IN LAST 30 DAYS: No - HEENT HEENT: Atraumatic, Normocephalic - NECK Neck: Normal Inspection, Supple - RESPIRATORY Respiratory: Breath Sounds Normal, No Respiratory Distress O2 Sat by Pulse Oximetry: 96 - CARDIOVASCULAR Cardiovascular: Tachycardia - MUSCULOSKELETAL/EXTREMETIES Musculoskeletal/Extremeties: Tender - Left dorsal hand tender to palpation no obvious swelling no obvious deformity good cap refill positive radial pulse Course - Re-evaluation Re-evalutation: 09/14/17 07:59 Patient instructed on negative x-ray still waiting for UA results. - Vital Signs Vital signs: Temp Pulse Resp BP Pulse Ox 98.5 F 105 H 20 124/77 96 09/14/17 07:01 09/14/17 07:01 09/14/17 07:01 09/14/17 07:01 09/14/17 07:01 - Diagnostic Test Radiology reviewed: Image reviewed, Reports reviewed - EXAM DESCRIPTION: HAND LEFT 3 VIEWS COMPLETED DATE/TIME: 09/14/2017 7:31 am REASON FOR STUDY: hit hand in dryer COMPARISON: None. EXAM PARAMETERS: NUMBER OF VIEWS: Three views. TECHNIQUE: AP, lateral and oblique radiographic images acquired of the left hand. LIMITATIONS: None. FINDINGS: MINERALIZATION: Normal. BONES: No acute fracture or dislocation. No worrisome bone lesions. JOINTS: No effusions. Minimal lateral angulation- flexion of the left 4th PIP joint. SOFT TISSUES: No soft tissue swelling. No foreign body. OTHER: No other significant finding. IMPRESSION: No acute findings Discharge - Discharge Clinical Impression: Left hand pain UTI (urinary tract infection) Qualifiers: Urinary tract infection type: site unspecified Hematuria presence: without hematuria Qualified Code(s): N39.0 - Urinary tract infection, site not specified Condition: Stable Disposition: HOME, SELF-CARE Instructions: Use of [id number]-[id number] Ibuprofen ([facility]), Ice & Elevation ([facility]), Nitrofurantoin ([facility]), Urinary Tract Infection ([facility]) Additional Instructions: *You have been evaluated for left hand pain, UTI *Maintain the supriya wrap for comfort for three days *Rest/Ice/Elevate *Follow up with orthopedics for continued hand pain-call for an appointment *Take medication as prescribed for UTI, Follow up with a primary care provider for urine recheck in one week *Return to ED for worsening condition, changes, needs Monitor your blood pressure. Your blood pressure was elevated today. This may be because you were anxious, in pain or because you need medication. It is important to follow up with your primary care provider for full evaluation. Prescriptions: Nitrofurantoin/Nitrofuran Mac [Macrobid 100 mg Capsule] 100 mg PO BID #10 capsule Forms: Elevated Blood Pressure
[2017-09-14 08:16] LABS: APPEARANCE,URINE CLOUDY; BILIRUBIN,URINE NEGATIVE (NEGATIVE); GLUCOSE, URINE NEGATIVE (NEGATIVE); KETONES,URINE NEGATIVE (NEGATIVE); LEUKOCYTE ESTERASE,URINE SMALL (NEGATIVE); NITRITE,URINE NEGATIVE (NEGATIVE); PROTEIN,URINE 100 mg/dL (NEGATIVE); URINE SPECIFIC GRAVITY 1.031; UROBILINOGEN,URINE NEGATIVE mg/dL (<2.0)
[2017-09-14] MEDS ORDERED: NITROFURANTOIN MONOHYD/M-CRYST 100 MG CAPSULE PO ONE (08:28)
== END 2017-09-14 08:45 | disposition home or self-care (01) ==
LOC: ER 06:57
DX: M79.642 Pain in left hand (principal); W23.0XXA Caught, crushed, jammed, or pinched between moving objects, initial encounter; N39.0 Urinary tract infection, site not specified; R35.0 Frequency of micturition; F17.210 Nicotine dependence, cigarettes, uncomplicated; Z85.828 Personal history of other malignant neoplasm of skin; Z87.81 Personal history of (healed) traumatic fracture
CPT/HCPCS: 99283; 87086; 81025; 87088; 81001; 87186; 73130; J8499

== ENCOUNTER 2017-10-07 00:56 | Emergency (ER) | payer SELFPAY ==
[2017-10-07 01:05] VITALS: BP 127/73
[2017-10-07] MEDS ORDERED: IBUPROFEN 600 MG TABLET PO ONE (01:30)
--- NOTE | 2017-10-07 01:35 | ER Document Report ---
ED Hand/Wrist Injury - General Chief Complaint: Hand Pain Stated Complaint: RIGHT HAND INJURY Time Seen by Provider: 10/07/17 01:27 Notes: The patient is a 32-year-old female who presents with right hand pain after she punched a wall after the [employer] lost. She was drinking during the game just prior to punching the wall. She is right-handed. Denies open wounds , numbness, tingling or any other injuries. TRAVEL OUTSIDE OF THE [place] IN LAST 30 DAYS: No - Related Data Allergies/Adverse Reactions: erythromycin base [Erythromycin Base] Allergy (Unknown, Verified 10/07/17 01:03) Past Medical History - General Information source: Patient - Social History Smoking Status: Unknown if Ever Smoked Family History: Reviewed & Not Pertinent Patient has suicidal ideation: No Patient has homicidal ideation: No Renal/ Medical History: Denies: Hx Peritoneal Dialysis Malignancy Medical History: Reports: Hx Skin Cancer GI Medical History: Reports: Hx Gastroesophageal Reflux Disease Psychiatric Medical History: Reports: Hx Anxiety, Hx Depression Past Surgical History: Reports: Hx Bowel Surgery - polyps removed, Hx Orthopedic Surgery - spinal fusion, Hx Tubal Ligation - Immunizations Hx Diphtheria, Pertussis, Tetanus Vaccination: Yes - 2013 Review of Systems - Review of Systems Notes: REVIEW OF SYSTEMS: CONSTITUTIONAL: -fevers, -chills EENT: -eye pain, -difficulty swallowing, -nasal congestion CARDIOVASCULAR:-chest pain, -syncope. RESPIRATORY: -cough, -SOB GASTROINTESTINAL: -abdominal pain, - nausea, -vomiting, -diarrhea GENITOURINARY: -dysuria, -hematuria MUSCULOSKELETAL: -back pain, -neck pain, +right hand injury SKIN: -rash or skin lesions. HEMATOLOGIC: -easy bruising or bleeding. LYMPHATIC: -swollen, enlarged glands. NEUROLOGICAL: -altered mental status or loss of consciousness, -headache, - neurologic symptoms PSYCHIATRIC: -anxiety, -depression. ALL OTHER SYSTEMS REVIEWED AND NEGATIVE. Physical Exam - Vital signs Vitals: Temp Pulse Resp BP Pulse Ox 99.0 F 134 H 18 127/73 H 97 10/07/17 01:01 10/07/17 01:01 10/07/17 01:01 10/07/17 01:01 10/07/17 01:01 - Notes Notes: PHYSICAL EXAMINATION: GENERAL: Uncomfortable. HEAD: Atraumatic, normocephalic. EYES: Pupils equal round and reactive to light, extraocular movements intact, sclera anicteric, conjunctiva are normal. ENT: nares patent, oropharynx clear without exudates. Moist mucous membranes. NECK: Normal range of motion, supple without lymphadenopathy LUNGS: Breath sounds clear to auscultation bilaterally and equal. No wheezes rales or rhonchi. HEART: Tachycardia. ABDOMEN: Soft, nontender, normoactive bowel sounds. No guarding, no rebound. No masses appreciated. EXTREMITIES: Tenderness and swelling of right base of 5th metacarpal. NEUROLOGICAL: Cranial nerves grossly intact. Normal speech, normal gait. Normal sensory and motor exams. PSYCH: Normal mood, normal affect. SKIN: Warm, Dry, normal turgor, no rashes or lesions noted. Course - Re-evaluation Re-evalutation: Patient with fifth metacarpal x-ray. She is neurovascularly intact distally. Patient placed in boxer splint and instructed her to follow-up with a hand surgeon tomorrow. - Vital Signs Vital signs: Temp Pulse Resp BP Pulse Ox 99.0 F 134 H 18 127/73 H 97 10/07/17 01:01 10/07/17 01:01 10/07/17 01:01 10/07/17 01:01 10/07/17 01:01 - Diagnostic Test Radiology reviewed: Image reviewed, Reports reviewed Radiology results interpreted by me: Right hand x-ray: 5th metacarpal fracture Procedures - Immobilization Right Hand Time completed: 03:06 Pre-Proc Neuro Vasc Exam: Normal Immobilizer type: Other - Boxer's Splint Performed by: PCT Post-Proc Neuro Vasc Exam: Normal Alignment checked and good: Yes Discharge - Discharge Clinical Impression: Metacarpal bone fracture Qualifiers: Encounter type: initial encounter Metacarpal bone: fifth Fracture type: closed Metacarpal location: base Fracture alignment: nondisplaced Laterality: right Qualified Code(s): S62.346A - Nondisplaced fracture of base of fifth metacarpal bone, right hand, initial encounter for closed fracture Condition: Stable Disposition: HOME, SELF-CARE Additional Instructions: Fractured Metacarpal You have broken a metacarpal bone in the hand. The fracture is usually caused by hitting the hand against a hard surface, but can also be caused by jamming a finger. At first the injury should be rested, elevated, and ice packed. The usual treatment is splinting for four to six weeks. For some patients, a cast is preferable. The physician will advise you. It's important to avoid any twisting or jamming of the fingers while the fracture is healing. Force on the fingers can make the fracture move. Usually , one or two fingers are included in the splint or cast. Sometimes fingers are taped instead -- in this case, extra caution to prevent a twisting of the fingers is necessary. Call the doctor or come back if swelling or pain become severe, if numbness develops, or if you suspect you may have disturbed the fracture. Prescriptions: Hydrocodone/Acetaminophen [[place] 5-325 mg Tablet] 1 tab PO Q6H PRN #10 tablet PRN Reason: Referrals: ELSY SANABRIA DO [ACTIVE STAFF] - Follow up as needed
[2017-10-07] MEDS ORDERED: HYDROCODONE/ACETAMINOPHEN 5-325 MG TABLET PO ONE (02:44)
--- NOTE | 2017-10-07 02:57 | RADIOLOGY REPORT (SQ) ---
EXAM DESCRIPTION: HAND RIGHT 3 VIEWS COMPLETED DATE/TIME: 10/07/2017 2:36 am REASON FOR STUDY: injury COMPARISON: None. EXAM PARAMETERS: NUMBER OF VIEWS: Three views. TECHNIQUE: AP, lateral and oblique radiographic images acquired of the right hand. LIMITATIONS: None. FINDINGS: MINERALIZATION: Normal. BONES: Oblique fracture of the proximal diametaphysis of the right 5th metacarpus with 0.2 cm posteri or displacement and mild volar -radial angulation. No evidence of healing. JOINTS: No effusions. SOFT TISSUES: No soft tissue swelling. No foreign body. OTHER: No other significant finding. IMPRESSION: Fracture of the right 5th metacarpus. TECHNICAL DOCUMENTATION: JOB ID: [id number] [employer]- All Rights Reserved
== END 2017-10-07 03:14 | disposition home or self-care (01) ==
LOC: ER 00:56
DX: S62.346A Nondisplaced fracture of base of fifth metacarpal bone, right hand, initial encounter for closed fracture (principal); W22.01XA Walked into wall, initial encounter; Z88.1 Allergy status to other antibiotic agents; Z85.828 Personal history of other malignant neoplasm of skin
CPT/HCPCS: 99283

== ENCOUNTER 2017-10-12 14:06 | Emergency (ER) | payer SELFPAY ==
[2017-10-12] MEDS ORDERED: HYDROCODONE/ACETAMINOPHEN 5-325 MG TABLET PO ONE (15:42)
[2017-10-12 15:56] VITALS: BP 125/74
--- NOTE | 2017-10-12 15:56 | ER Document Report ---
ED Fall - General Chief Complaint: Fall Injury Stated Complaint: RIGHT /LEFT SHOULDER PAIN Time Seen by Provider: 10/12/17 15:36 Mode of Arrival: Ambulatory Information source: Patient Notes: 32-year-old female presents to ED for complaint of pain in her right hand left shoulder left scapula and left buttocks after she fell down stairs this morning while rushing out to go to work. She states she already has a fractured fifth metacarpal boxer fracture from about a week and half ago. She does have a cast on her right hand. She denies any neck or back or head pain at this time. She states she did go on go to work but the pain is increased as the day has gone on. She states she takes ibuprofen that is the prescription and she got some pain medicine when she broke her arm about a week and half ago but that is all gone. TRAVEL OUTSIDE OF THE [place] IN LAST 30 DAYS: No - HPI Occurred: This morning Where: Home, Indoors Context: Tripped Associated symptoms: None Location of injury/pain: Hand - Right hand, Shoulder - Left shoulder, Other - Left scapula Quality of pain: Achy, Sharp Severity: Moderate Pain Level: 4 - Related data Allergies/Adverse Reactions: erythromycin base [Erythromycin Base] Allergy (Unknown, Verified 10/07/17 01:03) Past Medical History - General Information source: Patient - Social History Smoking Status: Current Every Day Smoker Cigarette use (# per day): Yes Chew tobacco use (# tins/day): No Smoking Education Provided: No Frequency of alcohol use: Social Drug Abuse: None Occupation: [employer] Lives with: Family Family History: Reviewed & Not Pertinent Patient has suicidal ideation: No Patient has homicidal ideation: No - Past Medical History Cardiac Medical History: Reports: None Pulmonary Medical History: Reports: None EENT Medical History: Reports: None Neurological Medical History: Reports: None Endocrine Medical History: Reports: None Renal/ Medical History: Reports: None Malignancy Medical History: Reports: Hx Skin Cancer GI Medical History: Reports: Hx Gastroesophageal Reflux Disease Musculoskeltal Medical History: Reports Hx Arthritis, Reports Hx Musculoskeletal Deformity, Reports Hx Musculoskeletal Trauma - Fractured right fifth metacarpal Skin Medical History: Reports None Psychiatric Medical History: Reports: Hx Anxiety, Hx Depression Traumatic Medical History: Reports: Hx Fractures - Right fifth metacarpal Infectious Medical History: Reports: None Past Surgical History: Reports: Hx Bowel Surgery - polyps removed, Hx Orthopedic Surgery - spinal fusion, Hx Tubal Ligation - Immunizations Hx Diphtheria, Pertussis, Tetanus Vaccination: Yes - 2013 Review of Systems - Review of Systems Constitutional: No symptoms reported EENT: No symptoms reported Cardiovascular: No symptoms reported Respiratory: No symptoms reported Gastrointestinal: No symptoms reported Genitourinary: No symptoms reported Female Genitourinary: No symptoms reported Musculoskeletal: Back pain - Left buttocks, Joint pain - Right hand left shoulder, Muscle pain, Muscle stiffness. denies: Neck pain Skin: Change in color - Large ecchymotic area to left buttocks Hematologic/Lymphatic: No symptoms reported Neurological/Psychological: No symptoms reported -: Yes All other systems reviewed and negative Physical Exam - Vital signs Vitals: Temp Pulse Resp BP Pulse Ox 98.4 F 104 H 16 125/74 99 10/12/17 14:26 10/12/17 14:26 10/12/17 14:26 10/12/17 14:26 10/12/17 14:26 Interpretation: Normal - General General appearance: Appears well, Alert - HEENT Head: Normocephalic, Atraumatic Eyes: Normal Pupils: PERRL - Respiratory Respiratory status: No respiratory distress Chest status: Nontender Breath sounds: Normal Chest palpation: Normal - Cardiovascular Rhythm: Regular Heart sounds: Normal auscultation Murmur: No - Abdominal Inspection: Normal Distension: No distension Bowel sounds: Normal Tenderness: Nontender Organomegaly: No organomegaly - Back Back: Normal, Tender - Left buttocks with large ecchymotic area and left scapular area, Scars. No: Deformity/step-off, CVA tenderness, Vertebra tenderness, Scoliosis, Wounds - Extremities General upper extremity: Normal color, Normal temperature General lower extremity: Normal inspection, Nontender, Normal color, Normal ROM , Normal temperature, Normal weight bearing. No: Oxana's sign Shoulder: Tender, Limited ROM - Due to pain. No: Abrasion, Deformity, Dislocation, Ecchymosis, Instability, Laceration Hand: Tender, Ecchymosis - Right hand, No evidence of human bite, No evidence of FB, Swelling. No: Abrasion, Deformity, Dislocation, Instability, Laceration , Nail injury, Tendon deficit - Neurological Neuro grossly intact: Yes Cognition: Normal Orientation: AAOx4 [place] Coma Scale Eye Opening: Spontaneous [place] Coma Scale Verbal: Oriented Danilo Coma Scale Motor: Obeys Commands Danilo Coma Scale Total: 15 Speech: Normal Motor strength normal: LUE, RUE, LLE, RLE Sensory: Normal - Psychological Associated symptoms: Normal affect, Normal mood - Skin Skin Temperature: Warm Skin Moisture: Dry Skin Color: Normal, Ecchymosis - Left buttocks right hand Irregularity with: Swelling - Right hand Course - Re-evaluation Re-evalutation: 10/12/17 17:26 No new injuries noted radiologically on x-rays of hand and shoulder. Patient left before she received her discharge papers or her discharge instructions. She was called and requested to come back and get her discharge papers a copy of her x-rays were left with her discharge papers. Charge nurse stated she said she was going to come back and get her papers. Patient was given verbal instructions but she left before she received any of her papers. - Vital Signs Vital signs: Temp Pulse Resp BP Pulse Ox 98.4 F 104 H 16 125/74 99 10/12/17 14:26 10/12/17 14:26 10/12/17 14:26 10/12/17 14:26 10/12/17 14:26 - Diagnostic Test Radiology reviewed: Image reviewed, Reports reviewed Discharge - Discharge Clinical Impression: Right hand pain Fall Qualifiers: Encounter type: initial encounter Qualified Code(s): W19.XXXA - Unspecified fall, initial encounter Left shoulder pain Qualifiers: Chronicity: acute Qualified Code(s): M25.512 - Pain in left shoulder Condition: Stable Disposition: HOME, SELF-CARE Additional Instructions: Shoulder Injury You have injured your shoulder. This usually results from stretching or tearing of the tendons during trauma. Time and protection are required in order to heal properly. Many injuries are quite disabling, and should be taken seriously. Initial treatment includes cold packs and a sling to rest the shoulder. The physician has assessed the seriousness of your injury, and has outlined a treatment plan. Understand that this treatment may change, depending on how you progress. If a re-examination was recommended, it is important that you follow up as instructed. Some shoulder injuries (such as partial tear of the rotator cuff) are only suspected after you've failed to improve. Call us if there's severe pain, numbness, or loss of function. Sling to be Used You are to use a sling. This is to rest the area, and to prevent it from hanging downward. Use this sling for at least 48 hours (or longer if so instructed by the doctor). Ice can be placed inside the sling over the injured area. Once you remove the sling, you should not encounter pain when you use the arm and hand. If you do feel pain beneath the cast or splint, you must continue use of the sling. Acetaminophen Acetaminophen may be taken for pain relief or fever control. It's much safer than aspirin, offering a wider range of "safe" dosages. It is safe during . Some brand names are Tylenol, Panadol, Datril, Anacin 3, Tempra, and Liquiprin. Acetaminophen can be repeated every four hours. The following are maximum recommended dosages: WEIGHT Dose Drops Elixir Chewable( 80mg) (LBS.) drprs=droppers tsp=teaspoon 6 40 mg .4 ml (1/2) 6-11 80 mg .8 ml (full) 1/2 tsp 1 tab 12-16 120 mg 1 1/2 drprs 3/4 tsp 1 1/2 tabs 17-23 160 mg 2 drprs 1 tsp 2 tabs 24-30 240 mg 3 drprs 1 1/2 tsp 3 tabs 30-35 320 mg 2 tsp 4 tabs 36-41 360 mg 2 1/4 tsp 4 1 /2 tabs 42-47 400 mg 2 1/2 tsp 5 tabs 48-53 480 mg 3 tsp 6 tabs 54-59 520 mg 3 1/4 tsp 6 1 /2 tabs 60-64 560 mg 3 1/2 tsp 7 tabs 65-70 600 mg 3 3/4 tsp 7 1 /2 tabs 71-76 640 mg 4 tsp 8 tabs 77-82 720 mg 4 1/2 tsp 9 tabs 83-88 800 mg 5 tsp 10 tabs >89 pounds or adults 650 mg to 900 mg Acetaminophen can be repeated every four hours. Maximum daily dose not to exceed 4000 mg. These maximum recommended dosages are slightly higher than the dosages written on the product container, but these dosages are very safe and well below the toxic dosage for acetaminophen. FOLLOW-UP CARE: If you have been referred to a physician for follow-up care, call the physician s office for an appointment as you were instructed or within the next two days. If you experience worsening or a significant change in your symptoms, notify the physician immediately or return to the Emergency Department at any time for re-evaluation. Forms: Smoking Cessation Education Referrals: EFRAIN TEMPLETON MD [ACTIVE STAFF] - Follow up as needed
--- NOTE | 2017-10-12 16:22 | RADIOLOGY REPORT (SQ) ---
EXAM DESCRIPTION: SHOULDER LEFT 2 OR MORE VIEWS COMPLETED DATE/TIME: 10/12/2017 4:08 pm REASON FOR STUDY: fall pain COMPARISON: None. NUMBER OF VIEWS: Three views. TECHNIQUE: Internal rotation, external rotation, and Y view images acquired of the left shoulder. LIMITATIONS: None. FINDINGS: MINERALIZATION: Normal. BONES: No acute fracture or dislocation. No worrisome bone lesions. JOINTS: No dislocation. VISUALIZED LUNGS AND RIBS: No pneumothorax. No rib fracture. SOFT TISSUES: No radiopaque foreign body. OTHER: No other significant finding. IMPRESSION: NEGATIVE STUDY OF THE LEFT SHOULDER. NO RADIOGRAPHIC EVIDENCE OF ACUTE INJURY. TECHNICAL DOCUMENTATION: JOB ID: [id number] [employer]- All Rights Reserved
--- NOTE | 2017-10-12 16:23 | RADIOLOGY REPORT (SQ) ---
EXAM DESCRIPTION: HAND RIGHT 3 VIEWS COMPLETED DATE/TIME: 10/12/2017 4:08 pm REASON FOR STUDY: fall pain COMPARISON: 10/07/2017 EXAM PARAMETERS: NUMBER OF VIEWS: Three views. TECHNIQUE: AP, lateral and oblique radiographic images acquired of the right hand. LIMITATIONS: None. FINDINGS: MINERALIZATION: Normal. BONES: Stable appearance of proximal 5th metacarpal fracture now in cast. Bones otherwise intact. JOINTS: No effusions. SOFT TISSUES: Obscured by casting material. OTHER: No other significant finding. IMPRESSION: 5th metacarpal fracture in cast. TECHNICAL DOCUMENTATION: JOB ID: [id number] [employer]- All Rights Reserved
== END 2017-10-12 17:43 | disposition home or self-care (01) ==
LOC: ER 14:06
DX: S40.012A Contusion of left shoulder, initial encounter (principal); S30.0XXA Contusion of lower back and pelvis, initial encounter; M25.512 Pain in left shoulder; W10.9XXA Fall (on) (from) unspecified stairs and steps, initial encounter; Y93.89 Activity, other specified; Y92.009 Unspecified place in unspecified non-institutional (private) residence as the place of occurrence of the external cause; S62.306D Unspecified fracture of fifth metacarpal bone, right hand, subsequent encounter for fracture with routine healing; X58.XXXD Exposure to other specified factors, subsequent encounter; F17.210 Nicotine dependence, cigarettes, uncomplicated; Z88.1 Allergy status to other antibiotic agents; Z85.828 Personal history of other malignant neoplasm of skin
CPT/HCPCS: 99283

== ENCOUNTER 2017-10-25 07:45 | Emergency (ER) | payer SELFPAY ==
[2017-10-25 09:02] LABS: ABSOLUTE BASOPHILS # (AUTO) 0.1 10^3/uL (0.0-0.2); ABSOLUTE EOSINOPHILS # (AUTO) 0.2 10^3/uL (0.0-0.6); ABSOLUTE LYMPHOCYTES (AUTO) 2.9 10^3/uL (0.5-4.7); ABSOLUTE MONOCYTES (AUTO) 0.6 10^3/uL (0.1-1.4); BASOPHILS % (AUTO) 0.8 % (0-2); HEMATOCRIT 41.2 % (36.0-47.0); HEMOGLOBIN 14.2 g/dL (12.0-15.5); HGB HCT DIFFERENCE 1.4; LYMPHOCYTES % (AUTO) 33.3 % (13-45); MEAN CORPUSCULAR HEMOGLOBIN 30.5 pg (27.0-33.4); MEAN CORPUSCULAR HGB CONC 34.4 g/dL (32.0-36.0); MEAN CORPUSCULAR VOLUME 89 fl (80-97); MONOCYTES % (AUTO) 6.6 % (3-13); RED BLOOD COUNT 4.64 10^6/uL (3.72-5.28); RED CELL DISTRIBUTION WIDTH 14.7 % (11.5-14.0); SEGMENTED NEUTROPHILS % (AUTO) 57.3 % (42-78); WHITE BLOOD COUNT 8.8 10^3/uL (4.0-10.5)
[2017-10-25 09:06] LABS: APPEARANCE,URINE SLIGHTLY-CLOUDY; BILIRUBIN,URINE NEGATIVE (NEGATIVE); GLUCOSE, URINE NEGATIVE (NEGATIVE); KETONES,URINE NEGATIVE (NEGATIVE); LEUKOCYTE ESTERASE,URINE NEGATIVE (NEGATIVE); NITRITE,URINE NEGATIVE (NEGATIVE); PROTEIN,URINE NEGATIVE (NEGATIVE); URINE SPECIFIC GRAVITY 1.023
[2017-10-25 09:29] LABS: URINE BARBITURATES SCREEN NEGATIVE; URINE METHADONE SCREEN NEGATIVE; URINE OPIATES LOW UNCONFIRMED POSITIVE; URINE PHENCYCLIDINE SCREEN NEGATIVE
[2017-10-25] MEDS ORDERED: DIPH/PERTUSS(ACELL)/TETANUS VAC/PF 0.5 ML SYR (>=10YO) IM ONE (09:35)
[2017-10-25 09:37] LABS: ALANINE AMINOTRANSFERASE 41 U/L (9-52); ALBUMIN 4.3 g/dL (3.5-5.0); ALKALINE PHOSPHATASE 129 U/L (38-126); ANION GAP 11 (5-19); ASPARTATE AMINO TRANSFERASE 28 U/L (14-36); BILIRUBIN,DIRECT 0.3 mg/dL (0.0-0.4); BILIRUBIN,TOTAL 0.4 mg/dL (0.2-1.3); BLOOD UREA NITROGEN 11 mg/dL (7-20); CALCIUM 9.4 mg/dL (8.4-10.2); CARBON DIOXIDE 24 mmol/L (22-30); CHLORIDE 111 mmol/L (98-107); CREATININE RESULT 0.77 mg/dL (0.52-1.25); GLUCOSE 66 mg/dL (75-110); POTASSIUM 3.8 mmol/L (3.6-5.0); SODIUM 145.9 mmol/L (137-145); TOTAL PROTEIN 7.2 g/dL (6.3-8.2)
[2017-10-25 09:39] LABS: ALCOHOL < 10 mg/dL (NONE DETECTED)
--- NOTE | 2017-10-25 09:40 | ER Document Report ---
ED General <SHADIA BURGOS - Last Filed: 10/25/17 12:54> - General Mode of Arrival: Ambulatory Information source: Patient TRAVEL OUTSIDE OF THE [place] IN LAST 30 DAYS: No - HPI Onset: Just prior to arrival Onset/Duration: Sudden Quality of pain: No pain Severity: Mild Pain Level: Denies Associated symptoms: Other Exacerbated by: Other - stress Relieved by: Denies Similar symptoms previously: No Recently seen / treated by doctor: No <AMELIA WEATHERS - Last Filed: 10/25/17 16:40> - General Chief Complaint: Psych Problem Stated Complaint: LEFT ARM INJURY Time Seen by Provider: 10/25/17 08:11 Notes: 32-year-old female who is under a lot of stress presents with complaints of anger issues and self cutting gesture. Patient denies any previous similar episodes (JENSENZAGRAYAN,AMELIA) - Related Data Allergies/Adverse Reactions: erythromycin base [Erythromycin Base] Allergy (Unknown, Verified 10/07/17 01:03) acetaminophen [From Tylenol] Adverse Reaction (Verified 10/25/17 07:47) Past Medical History - Social History Smoking Status: Current Every Day Smoker Cigarette use (# per day): Yes Chew tobacco use (# tins/day): No Smoking Education Provided: No Family History: Reviewed & Not Pertinent Renal/ Medical History: Denies: Hx Peritoneal Dialysis Malignancy Medical History: Reports: Hx Skin Cancer GI Medical History: Reports: Hx Gastroesophageal Reflux Disease Musculoskeltal Medical History: Reports Hx Arthritis, Reports Hx Musculoskeletal Deformity, Reports Hx Musculoskeletal Trauma - Fractured right fifth metacarpal Psychiatric Medical History: Reports: Hx Anxiety, Hx Depression Traumatic Medical History: Reports: Hx Fractures - Right fifth metacarpal Past Surgical History: Reports: Hx Bowel Surgery - polyps removed, Hx Orthopedic Surgery - spinal fusion, Hx Tubal Ligation - Immunizations Hx Diphtheria, Pertussis, Tetanus Vaccination: Yes - 2013 <AMELIA WEATHERS - Last Filed: 10/25/17 16:40> Review of Systems <SHADIA BURGOS - Last Filed: 10/25/17 12:54> <AMELIA WEATHERS - Last Filed: 10/25/17 16:40> - Review of Systems Notes: REVIEW OF SYSTEMS: CONSTITUTIONAL : Denies fever, chills, or sweats. Denies recent illness. EENT: Denies eye, ear, throat, or mouth pain or symptoms. Denies nasal or sinus congestion or discharge. Denies throat, tongue, or mouth swelling or difficulty swallowing. CARDIOVASCULAR: Denies chest pain. Denies palpitations or racing or irregular heart beat. Denies ankle edema. RESPIRATORY: Denies cough, cold, or chest congestion. Denies shortness of breath, difficulty breathing, or wheezing. GASTROINTESTINAL: Denies abdominal pain or distention. Denies nausea, vomiting , or diarrhea. Denies blood in vomitus, stools, or per rectum. Denies black, tarry stools. Denies constipation. GENITOURINARY: Denies difficulty urinating, painful urination, burning, frequency, blood in urine, or discharge. FEMALE GENITOURINARY: Denies vaginal bleeding, heavy or abnormal periods, irregular periods. Denies vaginal discharge or odor. MUSCULOSKELETAL: Denies back or neck pain or stiffness. Denies joint pain or swelling. SKIN: laceration wrist HEMATOLOGIC : Denies easy bruising or bleeding. LYMPHATIC: Denies swollen, enlarged glands. NEUROLOGICAL: Denies confusion or altered mental status. Denies passing out or loss of consciousness. Denies dizziness or lightheadedness. Denies headache. Denies weakness or paralysis or loss of use of either side. Denies problems with gait or speech. Denies sensory loss, numbness, or tingling. Denies seizures. PSYCHIATRIC: admits to stress ALL OTHER SYSTEMS REVIEWED AND NEGATIVE. PHYSICAL EXAMINATION: GENERAL: Well-appearing, well-nourished and in no acute distress. HEAD: Atraumatic, normocephalic. EYES: Pupils equal round and reactive to light, extraocular movements intact, conjunctiva are normal. ENT: Nares patent, oropharynx clear without exudates. Moist mucous membranes. NECK: Normal range of motion, supple without lymphadenopathy LUNGS: Breath sounds clear to auscultation bilaterally and equal. No wheezes rales or rhonchi. HEART: Regular rate and rhythm without murmurs ABDOMEN: Soft, nontender, nondistended abdomen. No guarding, no rebound. No masses appreciated. Female : deferred Musculoskeletal: Normal range of motion, no pitting or edema. No cyanosis. NEUROLOGICAL: Cranial nerves grossly intact. Normal speech, normal gait. Normal sensory, motor exams PSYCH: admits ot stress and anxiety SKIN: multiple superfiical lacerations of the left wrist in horizontal fashion, 1 in vertical Dictation was performed using Hands voice recognition software (AMELIA WEATHERS) - Vital signs Vitals: Temp Pulse Resp BP Pulse Ox 98.4 F 96 16 116/71 98 10/25/17 07:51 10/25/17 07:51 10/25/17 07:51 10/25/17 07:51 10/25/17 07:51 Course - Laboratory Result Diagrams: 10/25/17 08:45 10/25/17 08:45 <SHADIA BURGOS - Last Filed: 10/25/17 12:54> - Laboratory Result Diagrams: 10/25/17 08:45 10/25/17 08:45 - EKG Interpretation by Me EKG shows normal: Sinus rhythm, Intervals, QRS Complexes <AMELIA WEATHERS - Last Filed: 10/25/17 16:40> - Re-evaluation Re-evalutation: 10/25/17 09:39 Patient was evaluated and appears stable at this time, no lacerations are quite superficial, mental health has been consulted 10/25/17 16:40 Patient was evaluated by mental health, and they request medications be started on the patient's, they believe the patient stable for discharge as do I, she will have family members who take responsibility for her. Therefore I will discharge her with mental health input medication requests and follow-up After performing a Medical Screening Examination, I estimate there is LOW risk for any life threatening mental health issues. At this time the patient looks extremely well and has not attempted severe self harm. I have reevaluated this patient multiple times and no significant life threatening changes are noted. The patient and I have discussed the diagnosis and risks, and we agree with discharging home with close follow-up with the understanding that symptoms and presentations can change. We also discussed returning to the Emergency Department immediately if new or worsening symptoms occur. We have discussed the symptoms which are most concerning (hallucinations, thoughts or actions of self harm or harm to others) that necessitate immediate return. (AMELIA WEATHERS) - Vital Signs Vital signs: Temp Pulse Resp BP Pulse Ox 97.8 F 77 18 100/64 98 10/25/17 13:15 10/25/17 13:15 10/25/17 13:15 10/25/17 13:15 10/25/17 13:15 - Laboratory Laboratory results interpreted by me: 10/25/17 10/25/17 10/25/17 08:45 08:45 08:45 RDW 14.7 H Sodium 145.9 H Chloride 111 H Glucose 66 L Alkaline Phosphatase 129 H Urine Urobilinogen 2.0 H Salicylates < 1.0 L Acetaminophen < 10 L Discharge <SHADIA BURGOS - Last Filed: 10/25/17 12:54> <AMELIA WEATHERS - Last Filed: 10/25/17 16:40> - Discharge Clinical Impression: Deliberate self-cutting Bipolar disorder, unspecified Qualifiers: Active/Remission status: currently active Current bipolar episode type: mixed Current episode severity: unspecified Qualified Code(s): F31.60 - Bipolar disorder, current episode mixed, unspecified Condition: Stable Disposition: HOME, SELF-CARE Additional Instructions: Bipolar Disorder Bipolar disorder is also called manic-depressive disorder. Depression alternates with brain hyperactivity called shawn. Each phase lasts from several days to a few weeks. We don't know exactly what causes bipolar disorder , but it's treatable. During the "manic phase," you may feel elated and energetic. You may have racing thoughts, rapid speech, increased activity, and grandiose ideas. During this time, you may not realize how poor your judgement is. Inappropriate spending, drug abuse, excessive alcohol use, marriage problems, and irresponsible sexual behavior are common during the manic phase. During the "depressive phase," you might feel depressed, guilty, worthless , fatigued, and unable to concentrate. You might have thoughts of suicide. Good treatments are available for bipolar disorder. Sabattus is a classic drug for bipolar disorder, and is still often useful. If the manic phase is very mild, an antidepressant alone can be prescribed. If the manic phase is very severe, an antipsychotic medicine (such as Haldol) may be needed. The treatment must be matched to your symptoms, so it's important to work closely with your psychiatric care provider. Contact your physician, the hospital emergency center, crisis line, or your counsellor if you are losing control or having self-destructive thoughts. Please follow-up with [facility] in 3-5 days for your outpatient mental health treatment. Please take medications as prescribed. Prescriptions: Buspirone HCl [Buspar 5 mg Tablet] 1 tab PO BID #28 tab Risperidone [Risperdal 0.25 Mg Tablet] 0.25 mg PO BID #28 tablet Referrals: [facility] [Primary Care Provider] - Follow up as needed [facility] [Outside] - Follow up in 3-5 days
[2017-10-25] MEDS ORDERED: BUSPIRONE HCL 10 MG TABLET PO ONE (10:16)
[2017-10-25] MEDS ORDERED: RISPERIDONE 0.25 MG TABLET PO ONE (10:16)
--- NOTE | 2017-10-25 12:54 | PSYCHOLOGICAL NOTE ---
Psych Note - Psych Note Psych Note: * Reason for Consult: Depression and anger * Consent permissions: Debbie, mother Patient presented to [facility] ED with c/o possible nervous breakdown. reports cuts to arms. Patient disclosed that she has anger problems. She states that there is "no medium." She continued to state that her mood swings are scaring her. She continued to state that she is always had issues with her anger however since her divorce is gotten worse. Patient states that right now she is in a custody brian with her asked who is in [place]. She states that she "feels like I am going crazy.... But I am not crazy." Patient disclosed that she does have a history of legal issues but denies ever having outpatient mental health services other than receiving medication management while living in [place]. She states that Ativan and Klonopin did not work however when she was on Prozac it seemed to work. Patient confirms she did stop taking it because she was feeling better. Clinician observes multiple superficial cuts on top of the patient's forearm. Patient denies history of cutting. Patient disclosed she was drinking last night and became angry because "I couldn't do it." Patient turned forearm to show her wrist; clinician observes approximately 3 superficial cuts on her inner wrist. She disclosed; "I don't know why I did that (referring to the cuts are her arm)." Patient states it scared her and that is why she came to [facility] ED. Patient is alert and orientated to person, place, time and circumstance. Patient endorses suicidal gesture denies suicidal ideation. Patient denies homicidal ideation. Patient denies auditory visual hallucinations. Delusions are absent behaviors congruent with intact reality based presentation i.e. organized, linear, rational thinking. Eye contact was well-maintained. Intellectual abilities appear to be within the average range. Conversational speech was within normal rate, tone and prosody. Attention and concentration were good. Insight, judgment, impulse control is fair. 296.80 (F31.9) unspecified bipolar and related disorder Impression\\plan: Patient is considered psychiatrically clear. Patient does not meet IVC criteria per [place] GS 122C. Patient endorses suicidal gesture while under the influence. Patient denies suicidal ideation. Patient came to [facility] ED specifically because her suicidal gesture while under the influence scared her and wants assistance with mental health treatment; this shows strong insight and judgment. Patient reports a long history of anger issues with no therapeutic services. Patient is recommended for outpatient mental health treatment. Patient local resource list of providers in addition to medication recommendations. Patient's mother, Debbie, agrees to be part of patient's discharge plan. She will ensure patient does not have access to medications or weapons and follows up with outpatient mental health treatment.Dr. To was consulted on the care and management of this patient; attending physician in agreement with recommendations and disposition.
--- NOTE | 2017-10-25 12:55 | EKG REPORT ---
SEVERITY:- NORMAL ECG - SINUS RHYTHM : Confirmed by: Subhash Anderson MD 25-Oct-2017 12:54:38
[2017-10-25 13:38] VITALS: BP 100/64
== END 2017-10-25 12:15 | disposition home or self-care (01) ==
LOC: ER 07:45
DX: S61.512A Laceration without foreign body of left wrist, initial encounter (principal); F31.60 Bipolar disorder, current episode mixed, unspecified; X78.9XXA Intentional self-harm by unspecified sharp object, initial encounter; F17.210 Nicotine dependence, cigarettes, uncomplicated
CPT/HCPCS: 93005; 99285; 90471; 36415; 80307 ×4; 85025; 80053; 81001; 90715; 93010; J3490

== ENCOUNTER 2017-11-26 16:12 | Emergency (ER) | payer SELFPAY ==
[2017-11-26 16:18] VITALS: BP 116/75
== END 2017-11-26 20:33 | disposition left against medical advice (07) ==
LOC: ER 16:12
DX: Z53.21 Procedure and treatment not carried out due to patient leaving prior to being seen by health care provider (principal)

== ENCOUNTER 2017-12-09 13:20 | Emergency (ER) | payer SELFPAY ==
[2017-12-09 13:41] VITALS: BP 113/62
--- NOTE | 2017-12-09 14:55 | ER Document Report ---
ED Medical Screen (RME) - General Chief Complaint: Abdominal Pain Stated Complaint: RIGHT SIDE PAIN, ABDOMINAL PAIN Time Seen by Provider: 12/09/17 14:54 Notes: Patient has 2 days of right lower quadrant abdominal pain with urinary frequency and some dysuria. She also states she has vaginal discharge and is concerned about a sexually transmitted disease. TRAVEL OUTSIDE OF THE [place] IN LAST 30 DAYS: No - Related Data Allergies/Adverse Reactions: erythromycin base [Erythromycin Base] Allergy (Unknown, Verified 12/09/17 13:23) acetaminophen [From Tylenol] Adverse Reaction (Verified 12/09/17 13:23) Past Medical History Renal/ Medical History: Denies: Hx Peritoneal Dialysis Malignancy Medical History: Reports: Hx Skin Cancer GI Medical History: Reports: Hx Gastroesophageal Reflux Disease Musculoskeltal Medical History: Reports Hx Arthritis, Reports Hx Musculoskeletal Deformity, Reports Hx Musculoskeletal Trauma - Fractured right fifth metacarpal Psychiatric Medical History: Reports: Hx Anxiety, Hx Depression Traumatic Medical History: Reports: Hx Fractures - Right fifth metacarpal Past Surgical History: Reports: Hx Bowel Surgery - polyps removed, Hx Orthopedic Surgery - spinal fusion, Hx Tubal Ligation - Immunizations Hx Diphtheria, Pertussis, Tetanus Vaccination: Yes - 2013 History of Influenza Vaccine for 08/2017 - 01/2018 Season: No Physical Exam - Vital signs Vitals: Temp Pulse BP Pulse Ox 98.0 F 83 113/62 97 12/09/17 13:40 12/09/17 13:40 12/09/17 13:40 12/09/17 13:40 Course - Vital Signs Vital signs: Temp Pulse Resp BP Pulse Ox 98.0 F 83 113/62 97 12/09/17 13:40 12/09/17 13:40 12/09/17 13:40 12/09/17 13:40
[2017-12-09] MEDS ORDERED: ACETAMINOPHEN 325 MG TABLET PO ONE (15:52)
[2017-12-09 16:29] LABS: ABSOLUTE EOSINOPHILS # (AUTO) 0.2 10^3/uL (0.0-0.6); ABSOLUTE LYMPHOCYTES (AUTO) 2.3 10^3/uL (0.5-4.7); ABSOLUTE MONOCYTES (AUTO) 0.6 10^3/uL (0.1-1.4); ABSOLUTE NEUT (AUTO) 4.9 10^3/uL (1.7-8.2); BASOPHILS % (AUTO) 0.4 % (0-2); EOSINOPHILS % (AUTO) 1.9 % (0-6); HEMATOCRIT 41.8 % (36.0-47.0); HEMOGLOBIN 14.1 g/dL (12.0-15.5); LYMPHOCYTES % (AUTO) 28.9 % (13-45); MEAN CORPUSCULAR HEMOGLOBIN 30.8 pg (27.0-33.4); MEAN CORPUSCULAR HGB CONC 33.8 g/dL (32.0-36.0); MEAN CORPUSCULAR VOLUME 91 fl (80-97); MONOCYTES % (AUTO) 7.1 % (3-13); PLATELET COUNT 271 10^3/uL (150-450); RED BLOOD COUNT 4.59 10^6/uL (3.72-5.28); RED CELL DISTRIBUTION WIDTH 14.3 % (11.5-14.0); SEGMENTED NEUTROPHILS % (AUTO) 61.7 % (42-78); TOTAL CELLS COUNTED % (AUTO) 100 %; WHITE BLOOD COUNT 7.9 10^3/uL (4.0-10.5)
[2017-12-09 16:39] LABS: APPEARANCE,URINE CLOUDY; BILIRUBIN,URINE NEGATIVE (NEGATIVE); GLUCOSE, URINE NEGATIVE (NEGATIVE); KETONES,URINE NEGATIVE (NEGATIVE); LEUKOCYTE ESTERASE,URINE MODERATE (NEGATIVE); NITRITE,URINE NEGATIVE (NEGATIVE); PROTEIN,URINE NEGATIVE (NEGATIVE); URINE SPECIFIC GRAVITY 1.025
[2017-12-09 16:40] LABS: COLOR,URINE DARK YELLOW
[2017-12-09 16:46] LABS: ALANINE AMINOTRANSFERASE 145 U/L (9-52); ALBUMIN 4.7 g/dL (3.5-5.0); ALKALINE PHOSPHATASE 142 U/L (38-126); ANION GAP 11 (5-19); ASPARTATE AMINO TRANSFERASE 53 U/L (14-36); BILIRUBIN,DIRECT 0.7 mg/dL (0.0-0.4); BLOOD UREA NITROGEN 12 mg/dL (7-20); CALCIUM 10.6 mg/dL (8.4-10.2); CARBON DIOXIDE 27 mmol/L (22-30); CHLORIDE 104 mmol/L (98-107); GLUCOSE 88 mg/dL (75-110); POTASSIUM 4.1 mmol/L (3.6-5.0); SODIUM 142.1 mmol/L (137-145); TOTAL PROTEIN 7.9 g/dL (6.3-8.2)
== END 2017-12-09 16:53 | disposition left against medical advice (07) ==
LOC: ER 13:20
DX: R10.31 Right lower quadrant pain (principal); R30.0 Dysuria; Z85.828 Personal history of other malignant neoplasm of skin; Z98.51 Tubal ligation status
CPT/HCPCS: 36415; 80053; 81001; 81025; 85025; 99281

== ENCOUNTER 2017-12-19 17:25 | Emergency (ER) | payer SELFPAY ==
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
[2017-12-19 18:55] LABS: ABSOLUTE EOSINOPHILS # (AUTO) 0.1 10^3/uL (0.0-0.6); ABSOLUTE LYMPHOCYTES (AUTO) 2.3 10^3/uL (0.5-4.7); ABSOLUTE MONOCYTES (AUTO) 0.7 10^3/uL (0.1-1.4); ABSOLUTE NEUT (AUTO) 5.9 10^3/uL (1.7-8.2); BASOPHILS % (AUTO) 0.5 % (0-2); EOSINOPHILS % (AUTO) 0.8 % (0-6); HEMATOCRIT 39.1 % (36.0-47.0); HEMOGLOBIN 13.5 g/dL (12.0-15.5); MEAN CORPUSCULAR HEMOGLOBIN 30.7 pg (27.0-33.4); MEAN CORPUSCULAR HGB CONC 34.5 g/dL (32.0-36.0); MEAN CORPUSCULAR VOLUME 89 fl (80-97); MONOCYTES % (AUTO) 8.1 % (3-13); PLATELET COUNT 284 10^3/uL (150-450); RED BLOOD COUNT 4.39 10^6/uL (3.72-5.28); RED CELL DISTRIBUTION WIDTH 13.4 % (11.5-14.0); SEGMENTED NEUTROPHILS % (AUTO) 65.6 % (42-78); TOTAL CELLS COUNTED % (AUTO) 100 %; WHITE BLOOD COUNT 9.1 10^3/uL (4.0-10.5)
[2017-12-19] MEDS ORDERED: BUSPIRONE HCL 10 MG TABLET PO ONE (19:01)
[2017-12-19] MEDS ORDERED: BENZTROPINE MESYLATE 1 MG TABLET PO ONE (19:01)
[2017-12-19] MEDS ORDERED: OLANZAPINE 5 MG TABLET PO ONE (19:01)
[2017-12-19 19:17] LABS: ALANINE AMINOTRANSFERASE 40 U/L (9-52); ALBUMIN 4.8 g/dL (3.5-5.0); ALKALINE PHOSPHATASE 133 U/L (38-126); ANION GAP 12 (5-19); ASPARTATE AMINO TRANSFERASE 56 U/L (14-36); BILIRUBIN,DIRECT 0.3 mg/dL (0.0-0.4); BILIRUBIN,TOTAL 0.6 mg/dL (0.2-1.3); BLOOD UREA NITROGEN 9 mg/dL (7-20); CALCIUM 9.8 mg/dL (8.4-10.2); CARBON DIOXIDE 23 mmol/L (22-30); CHLORIDE 106 mmol/L (98-107); GLUCOSE 88 mg/dL (75-110); POTASSIUM 4.2 mmol/L (3.6-5.0); TOTAL PROTEIN 7.8 g/dL (6.3-8.2)
[2017-12-19 19:23] LABS: ACETAMINOPHEN < 10 ug/mL (10-30); ALCOHOL < 10 mg/dL (NONE DETECTED); SALICYLATE < 1.0 mg/dL (2.0-20.0)
[2017-12-19] MEDS ORDERED: LIDOCAINE 1% INJ-PF (10 MG/ML) 30 ML SDV INFIL ONE (20:38)
[2017-12-19] MEDS ORDERED: CEFTRIAXONE INJ 1000 MG VIAL IM ONE (20:38)
[2017-12-19] MEDS ORDERED: AZITHROMYCIN 1 GM SUSP PACKET PO ONE (20:38)
[2017-12-19 20:40] LABS: APPEARANCE,URINE CLOUDY; BILIRUBIN,URINE NEGATIVE (NEGATIVE); COLOR,URINE YELLOW; GLUCOSE, URINE NEGATIVE (NEGATIVE); KETONES,URINE TRACE mg/dL (NEGATIVE); LEUKOCYTE ESTERASE,URINE SMALL (NEGATIVE); NITRITE,URINE NEGATIVE (NEGATIVE); PROTEIN,URINE NEGATIVE (NEGATIVE); URINE SPECIFIC GRAVITY 1.015
[2017-12-19 20:50] LABS: URINE BARBITURATES SCREEN NEGATIVE; URINE BENZODIAZEPINES SCREEN UNCONFIRMED POSITIVE; URINE COCAINE SCREEN UNCONFIRMED POSITIVE; URINE MARIJUANA (THC) SCREEN NEGATIVE; URINE METHADONE SCREEN NEGATIVE; URINE PHENCYCLIDINE SCREEN NEGATIVE
[2017-12-19] MEDS ORDERED: DOXYCYCLINE HYCLATE 100 MG TABLET PO ONE (20:57)
[2017-12-19 21:30] VITALS: BP 114/70
[2017-12-19 22:05] LABS: CHLAM PCR NOT DETECTED (NOT DETECT); GON PCR DETECTED (NOT DETECT)
--- NOTE | 2017-12-20 10:56 | EKG REPORT ---
SEVERITY:- NORMAL ECG - SINUS RHYTHM : Confirmed by: Souleymane Tirado 20-Dec-2017 10:55:54
== END 2017-12-19 21:31 | disposition home or self-care (01) ==
LOC: ER 17:25
DX: F11.10 Opioid abuse, uncomplicated (principal); F15.10 Other stimulant abuse, uncomplicated; F12.10 Cannabis abuse, uncomplicated; F13.10 Sedative, hypnotic or anxiolytic abuse, uncomplicated; F31.9 Bipolar disorder, unspecified; F17.200 Nicotine dependence, unspecified, uncomplicated; Z20.2 Contact with and (suspected) exposure to infections with a predominantly sexual mode of transmission; Z85.828 Personal history of other malignant neoplasm of skin; Z88.1 Allergy status to other antibiotic agents
CPT/HCPCS: 93005; 99284; 96372; 36415; 80307 ×4; 84703; 85025; 80053; 81001; 87491; 87591; 93010; J3490; J0696

== ENCOUNTER 2018-02-23 16:15 | Emergency (ER) | payer SELFPAY ==
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
[2018-02-23 17:21] LABS: APPEARANCE,URINE CLEAR; BILIRUBIN,URINE NEGATIVE (NEGATIVE); COLOR,URINE YELLOW; GLUCOSE, URINE NEGATIVE (NEGATIVE); KETONES,URINE NEGATIVE (NEGATIVE); LEUKOCYTE ESTERASE,URINE TRACE (NEGATIVE); NITRITE,URINE NEGATIVE (NEGATIVE); PROTEIN,URINE NEGATIVE (NEGATIVE); UROBILINOGEN,URINE NEGATIVE mg/dL (<2.0)
[2018-02-23] MEDS ORDERED: FENTANYL CITRATE INJ/PF 100 MCG/2 ML AMPUL IV ONE (17:35)
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
[2018-02-23 18:44] LABS: CHLAM PCR NOT DETECTED (NOT DETECT); GON PCR DETECTED (NOT DETECT)
[2018-02-23] MEDS ORDERED: CEFTRIAXONE INJ 250 MG VIAL IM ONE (18:49)
[2018-02-23] MEDS ORDERED: DOXYCYCLINE HYCLATE 100 MG TABLET PO ONE (18:51)
[2018-02-23] MEDS ORDERED: LIDOCAINE 1% INJ (10 MG/ML) 10 ML MDV INJ ONE (19:25)
[2018-02-23] MEDS ORDERED: LIDOCAINE 1% INJ-PF (10 MG/ML) 30 ML SDV ONE (19:29)
[2018-02-23 19:46] VITALS: BP 126/75
== END 2018-02-23 19:45 | disposition home or self-care (01) ==
LOC: ER 16:15
DX: T14.8XXA Other injury of unspecified body region, initial encounter (principal); R07.81 Pleurodynia; V86.99XA Unspecified occupant of other special all-terrain or other off-road motor vehicle injured in nontraffic accident, initial encounter; A54.00 Gonococcal infection of lower genitourinary tract, unspecified; M79.1 Myalgia; R10.9 Unspecified abdominal pain; R10.816 Epigastric abdominal tenderness; R10.811 Right upper quadrant abdominal tenderness; R30.0 Dysuria; F14.10 Cocaine abuse, uncomplicated; F12.10 Cannabis abuse, uncomplicated; F11.10 Opioid abuse, uncomplicated; F15.10 Other stimulant abuse, uncomplicated; F17.210 Nicotine dependence, cigarettes, uncomplicated; Z88.1 Allergy status to other antibiotic agents; Z85.828 Personal history of other malignant neoplasm of skin
CPT/HCPCS: 99284; 96372; 96374; 81025; 81001; 87491; 87591; 72110; 71101; 74177; J3010; J3490; J0696

== ENCOUNTER 2018-08-12 12:04 | Emergency (ER) | payer SELFPAY ==
[2018-08-12 12:18] VITALS: BP 109/79
[2018-08-12] MEDS ORDERED: LIDOCAINE 1% INJ-PF (10 MG/ML) 30 ML SDV INJ ONE (12:57)
[2018-08-12] MEDS ORDERED: CEFTRIAXONE INJ 250 MG VIAL IM ONE (12:57)
[2018-08-12] MEDS ORDERED: OXYCODONE HCL IR 5 MG TABLET PO ONE (12:57)
--- NOTE | 2018-08-12 12:58 | ER Document Report ---
HPI - HPI Pain Level: 4 Notes: Patient is a 33-year-old female who presents to the ED complaining of a swollen red area to her chin that is painful over the last couple days as well as vaginal odor and discharge which she believes to be gonorrhea. Patient states that she had gonorrhea somewhat recently, but was treated, but believes she was reexposed. Patient states that she has had vaginal discharge and odor for the last week. She is otherwise eating and drinking without any difficulties. She is urinating normally and having normal bowel movements. Denies any headache, fever, URI, sore throat, chest pain, palpitations, syncope, cough, shortness of breath, wheeze, dyspnea, abdominal pain, nausea/vomiting/diarrhea, urinary retention, dysuria, hematuria. - ROS Systems Reviewed and Negative: Yes All other systems reviewed and negative - REPRODUCTIVE Reproductive: DENIES: : Past Medical History - Social History Smoking Status: Unknown if Ever Smoked Family History: Reviewed & Not Pertinent Renal/ Medical History: Denies: Hx Peritoneal Dialysis Malignancy Medical History: Reports: Hx Skin Cancer GI Medical History: Reports: Hx Gastroesophageal Reflux Disease Musculoskeletal Medical History: Reports Hx Arthritis, Reports Hx Musculoskeletal Deformity, Reports Hx Musculoskeletal Trauma - Fractured right fifth metacarpal Psychiatric Medical History: Reports: Hx Anxiety, Hx Bipolar Disorder, Hx Depression Traumatic Medical History: Reports: Hx Fractures - Right fifth metacarpal Past Surgical History: Reports: Hx Bowel Surgery - polyps removed, Hx Orthopedic Surgery - spinal fusion, Hx Tubal Ligation - Immunizations Hx Diphtheria, Pertussis, Tetanus Vaccination: Yes - 2013 Vertical Provider Document - CONSTITUTIONAL Agree With Documented VS: Yes Notes: PHYSICAL EXAMINATION: GENERAL: Well-appearing, well-nourished and in no acute distress. HEAD: Atraumatic, normocephalic. EYES: Pupils equal round and reactive to light, extraocular movements intact, sclera anicteric, conjunctiva are normal. ENT: Nares patent and without discharge. oropharynx clear without exudates. No tonsilar hypertrophy or erythema. Moist mucous membranes. NECK: Normal range of motion, supple without lymphadenopathy LUNGS: Breath sounds clear to auscultation bilaterally and equal. No wheezes rales or rhonchi. HEART: Regular rate and rhythm without murmurs, rubs, gallops. ABDOMEN: Soft, nontender, nondistended abdomen. No guarding, no rebound. No masses appreciated. Normal bowel sounds present. No CVA tenderness bilaterally. : deferred. Pt self-swabbed. Musculoskeletal: FROM to passive/active. Strength 5+/5. Extremities: No cyanosis, clubbing, or edema b/l. Peripheral pulses 2+. Capillary refill less than 3 seconds. NEUROLOGICAL: Normal speech, normal gait. PSYCH: Normal mood, normal affect. SKIN: to the chin: there is an erythemic 1cm diameter area that is indurated and tender w/o fluctuance, streaks, or discharge. - INFECTION CONTROL TRAVEL OUTSIDE OF THE [place] IN LAST 30 DAYS: No Course - Re-evaluation Re-evalutation: 08/12/18 13:54 Patient is an afebrile, well-hydrated, 33-year-old female who presents to the ED with possible gonorrhea, trichomonas, and cellulitis to the chin. Vitals are acceptable without any significant tachycardia, tachypnea, or hypoxia. PE is otherwise unremarkable. Patient is allergic to macrolides. Patient was given Rocephin IM. Wound culture was obtained from the chin status post puncture with a needle to evaluate for any abscess or purulence. Bloody discharge was expressed, but no purulent material. Patient tolerated procedure well without any complications. Wound dressing was placed. Chlam/marlene pending. See wt mount results. Patient is nontoxic-appearing and is tolerating p.o. without any difficulties. HCG negative. Patient is stating that she does not want to be on multiple medications for the infection and gonorrhea. I will place her on doxycycline to help cover gonorrhea as she is allergic to macrolides which will also help cover for her skin infection. I did review that if her culture comes back positive for MRSA there may be resistance to the medication. She is to monitor her face very closely for any worsening infection and return if so. Risk/benefit understood. Patient's abdomen is otherwise soft and nontender. Rx for flagyl for trich. I recommend that she follows up with the health department this week for further evaluation and testing. Recheck with your PCM this week as well. Return to the ED with any worsening/concerning symptoms otherwise as reviewed in discharge. Patient is in agreement. - Vital Signs Vital signs: Temp Pulse Resp BP Pulse Ox 98.9 F 89 18 109/79 98 08/12/18 12:17 08/12/18 12:17 08/12/18 12:17 08/12/18 12:17 08/12/18 12:17 Procedures - Incision and Drainage Face Time completed: 12:55 - Patient tolerated procedure well without any complications Type: Simple I&D procedure: Betadine prep applied, Sterile dressing applied Incision Method: Incision made with needle Amount/type of drainage: bloody, scant Discharge - Discharge Clinical Impression: Cellulitis of chin, STD exposure, Vaginal discharge, Trichomonas infection Condition: Stable Disposition: HOME, SELF-CARE Instructions: Doxycycline ([facility]), Trichomonas Infection ([facility]) Additional Instructions: Maintain fluid intake Proper hygenic technique Keep the skin clean; apply triple antibiotic ointment daily Safe sexual practices with condoms everytime Sunlight precautions while on doxy as it may cause you to burn easier Tylenol/ibuprofen as needed Check in with the health department this week for further testing if warranted Your chlamydia/Ghon test are pending and you will be notified if positive results; you may call in 1 day for the results as well F/u with your PCM/OBGYN in 3-5 days for a recheck Return to the ED with any development of ALMENDAREZ/fever, trouble with vision, eye redness, worsening pain, urethral discharge, urinary retention, blood in the urine, flank pain, abdominal pain, n/v, Chest Pain, shortness of breath, joint pains, trouble breathing, red streaks, worsening redness/pain/discharge, or any other worsening/concerning symptoms as needed otherwise. Prescriptions: Doxycycline Hyclate 100 mg PO BID #20 capsule Metronidazole [Flagyl] 500 mg PO BID #14 tablet [facility] - Follow up in 3-5 days
[2018-08-12] MEDS ORDERED: IBUPROFEN 600 MG TABLET PO ONE (12:59)
[2018-08-12 13:28] LABS: BACTERIA (WET MOUNT) 4+ BACTERIA SEEN; T.VAGINALIS (WET MOUNT) TRICHOMONAS SEEN; WBCS (WET MOUNT) 3+ WBCS SEEN; YEAST (WET MOUNT) NO YEAST SEEN
[2018-08-12 14:55] LABS: CHLAM PCR NOT DETECTED (NOT DETECT); GON PCR DETECTED (NOT DETECT)
== END 2018-08-12 14:39 | disposition home or self-care (01) ==
LOC: ER 12:04
DX: L03.211 Cellulitis of face (principal); A59.00 Urogenital trichomoniasis, unspecified; Z85.828 Personal history of other malignant neoplasm of skin; Z88.1 Allergy status to other antibiotic agents
CPT/HCPCS: 99283; 96372; 87070; 87205; 87210; 81025; 87077; 87186; 87491; 87591; 10060; J3490; J0696

== ENCOUNTER 2018-09-06 11:12 | Emergency (ER) | payer OTHER ==
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
[2018-09-06 13:25] LABS: APPEARANCE,URINE CLOUDY; BILIRUBIN,URINE NEGATIVE (NEGATIVE); COLOR,URINE YELLOW; GLUCOSE, URINE NEGATIVE (NEGATIVE); KETONES,URINE NEGATIVE (NEGATIVE); LEUKOCYTE ESTERASE,URINE LARGE (NEGATIVE); NITRITE,URINE NEGATIVE (NEGATIVE); PROTEIN,URINE 30 mg/dL (NEGATIVE); URINE SPECIFIC GRAVITY 1.021
[2018-09-06 13:33] LABS: ABSOLUTE EOSINOPHILS # (AUTO) 0.1 10^3/uL (0.0-0.6); ABSOLUTE LYMPHOCYTES (AUTO) 1.5 10^3/uL (0.5-4.7); ABSOLUTE MONOCYTES (AUTO) 0.6 10^3/uL (0.1-1.4); ABSOLUTE NEUT (AUTO) 3.1 10^3/uL (1.7-8.2); BASOPHILS % (AUTO) 0.4 % (0-2); EOSINOPHILS % (AUTO) 1.8 % (0-6); HEMATOCRIT 35.6 % (36.0-47.0); HEMOGLOBIN 12.3 g/dL (12.0-15.5); LYMPHOCYTES % (AUTO) 27.8 % (13-45); MEAN CORPUSCULAR HEMOGLOBIN 30.1 pg (27.0-33.4); MEAN CORPUSCULAR HGB CONC 34.5 g/dL (32.0-36.0); MEAN CORPUSCULAR VOLUME 87 fl (80-97); MONOCYTES % (AUTO) 11.5 % (3-13); PLATELET COUNT 202 10^3/uL (150-450); RED BLOOD COUNT 4.08 10^6/uL (3.72-5.28); RED CELL DISTRIBUTION WIDTH 14.6 % (11.5-14.0); SEGMENTED NEUTROPHILS % (AUTO) 58.5 % (42-78); TOTAL CELLS COUNTED % (AUTO) 100 %; WHITE BLOOD COUNT 5.3 10^3/uL (4.0-10.5)
[2018-09-06 13:45] LABS: ALANINE AMINOTRANSFERASE 16 U/L (9-52); ALBUMIN 3.8 g/dL (3.5-5.0); ALKALINE PHOSPHATASE 102 U/L (38-126); ANION GAP 9 (5-19); ASPARTATE AMINO TRANSFERASE 21 U/L (14-36); BILIRUBIN,DIRECT 0.2 mg/dL (0.0-0.4); BILIRUBIN,TOTAL 0.4 mg/dL (0.2-1.3); BLOOD UREA NITROGEN 12 mg/dL (7-20); CALCIUM 9.3 mg/dL (8.4-10.2); CARBON DIOXIDE 30 mmol/L (22-30); CHLORIDE 100 mmol/L (98-107); CREATINE KINASE 23 U/L (30-135); GLUCOSE 122 mg/dL (75-110); LIPASE 38.3 U/L (23-300); POTASSIUM 4.8 mmol/L (3.6-5.0); SODIUM 139.4 mmol/L (137-145); TOTAL PROTEIN 6.8 g/dL (6.3-8.2)
[2018-09-06] MEDS ORDERED: CEFTRIAXONE INJ 1000 MG VIAL IV ONE (14:25)
[2018-09-06 15:55] LABS: CHLAM PCR NOT DETECTED (NOT DETECT); GON PCR NOT DETECTED (NOT DETECT)
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
[2018-09-06 17:39] VITALS: BP 111/72
--- NOTE | 2018-09-06 22:02 | EKG REPORT ---
SEVERITY:- NORMAL ECG - SINUS RHYTHM : Confirmed by: Beckie Cotton MD 06-Sep-2018 22:01:01
== END 2018-09-06 17:39 | disposition home or self-care (01) ==
LOC: ER 11:12
DX: S30.1XXA Contusion of abdominal wall, initial encounter (principal); M25.561 Pain in right knee; V43.62XA Car passenger injured in collision with other type car in traffic accident, initial encounter; N39.0 Urinary tract infection, site not specified; N73.9 Female pelvic inflammatory disease, unspecified; K59.00 Constipation, unspecified; R11.10 Vomiting, unspecified; R55 Syncope and collapse; N89.8 Other specified noninflammatory disorders of vagina; Z98.51 Tubal ligation status; Z88.1 Allergy status to other antibiotic agents; F17.200 Nicotine dependence, unspecified, uncomplicated; Z85.828 Personal history of other malignant neoplasm of skin
CPT/HCPCS: 93005; 99284; 96365; 36415; 87086; 82550; 83690; 84703; 85025; 80053; 81001; 87491; 87591; 73564; 74177; 93010; J0696

== ENCOUNTER 2018-10-19 12:37 | Emergency (ER) | payer OTHER ==
[2018-10-19 12:49] VITALS: BP 118/89
--- NOTE | 2018-10-19 13:00 | ER Document Report ---
ED Medical Screen (RME) - General Chief Complaint: Possible Overdose Stated Complaint: RIGHT SIDE AND ABDOMINAL PAIN Time Seen by Provider: 10/19/18 12:54 Mode of Arrival: Ambulatory Information source: Patient Notes: 33-year-old female with history of IV drug abuse, crystal meth use presents with right lower quadrant abdominal pain that started 1 day prior to arrival. Patient admits to her last use being 12 hours prior to arrival. She states that she got a "photographs curator" which she believes made her sick. She states the photographs curator is "fake dope to make money". I have greeted and performed a rapid initial assessment of this patient. A comprehensive ED assessment and evaluation of the patient, analysis of test results and completion of medical decision making process we will be contacted by additional ED providers. PHYSICAL EXAMINATION: Vital signs reviewed GENERAL: Appears to be in pain LUNGS: No respiratory distress Musculoskeletal: Normal range of motion NEUROLOGICAL: Normal speech, normal gait. PSYCH: Normal mood, normal affect. SKIN: Multiple scabbed lesions scattered over her body TRAVEL OUTSIDE OF THE [place] IN LAST 30 DAYS: No - HPI Onset: Yesterday Onset/Duration: Sudden, Worse Quality of pain: Stabbing Severity: Moderate Associated Symptoms: Nausea Exacerbated by: Denies Relieved by: Denies Similar symptoms previously: No Recently seen / treated by doctor: No - Related Data Smoking: Cigarettes Frequency of alcohol use: None Drug Abuse: Heroin, Methamphetamine Allergies/Adverse Reactions: erythromycin base [Erythromycin Base] Allergy (Unknown, Verified 02/23/18 16:16) acetaminophen [From Tylenol] Adverse Reaction (Verified 02/23/18 16:16) Past Medical History Endocrine Medical History: Denies: Hx Diabetes Mellitus Type 2 Renal/ Medical History: Denies: Hx Peritoneal Dialysis Malignancy Medical History: Reports: Hx Skin Cancer GI Medical History: Reports: Hx Gastroesophageal Reflux Disease Musculoskeltal Medical History: Reports Hx Arthritis, Reports Hx Musculoskeletal Deformity, Reports Hx Musculoskeletal Trauma - Fractured right fifth metacarpal Psychiatric Medical History: Reports: Hx Anxiety, Hx Bipolar Disorder, Hx Depression Traumatic Medical History: Reports: Hx Fractures - Right fifth metacarpal Past Surgical History: Reports: Hx Bowel Surgery - polyps removed, Hx Orthopedic Surgery - spinal fusion, Hx Tubal Ligation - Immunizations Hx Diphtheria, Pertussis, Tetanus Vaccination: Yes - 2013 History of Influenza Vaccine for 08/2017 - 01/2018 Season: No Physical Exam - Vital signs Vitals: Temp Pulse Resp BP Pulse Ox 98.6 F 117 H 20 118/89 H 97 10/19/18 12:44 10/19/18 12:44 10/19/18 12:44 10/19/18 12:44 10/19/18 12:44 Course - Vital Signs Vital signs: Temp Pulse Resp BP Pulse Ox 98.6 F 117 H 20 118/89 H 97 10/19/18 12:44 10/19/18 12:44 10/19/18 12:44 10/19/18 12:44 10/19/18 12:44
[2018-10-19 13:49] LABS: ABSOLUTE BASOPHILS # (AUTO) 0.1 10^3/uL (0.0-0.2); ABSOLUTE LYMPHOCYTES (AUTO) 2.1 10^3/uL (0.5-4.7); ABSOLUTE MONOCYTES (AUTO) 0.6 10^3/uL (0.1-1.4); ABSOLUTE NEUT (AUTO) 3.9 10^3/uL (1.7-8.2); BASOPHILS % (AUTO) 0.8 % (0-2); EOSINOPHILS % (AUTO) 0.3 % (0-6); HEMATOCRIT 40.1 % (36.0-47.0); HEMOGLOBIN 13.4 g/dL (12.0-15.5); LYMPHOCYTES % (AUTO) 31.7 % (13-45); MEAN CORPUSCULAR HEMOGLOBIN 29.2 pg (27.0-33.4); MEAN CORPUSCULAR HGB CONC 33.4 g/dL (32.0-36.0); MEAN CORPUSCULAR VOLUME 87 fl (80-97); MONOCYTES % (AUTO) 9.2 % (3-13); PLATELET COUNT 289 10^3/uL (150-450); RED BLOOD COUNT 4.59 10^6/uL (3.72-5.28); RED CELL DISTRIBUTION WIDTH 13.6 % (11.5-14.0); TOTAL CELLS COUNTED % (AUTO) 100 %; WHITE BLOOD COUNT 6.7 10^3/uL (4.0-10.5)
[2018-10-19 14:04] LABS: ALANINE AMINOTRANSFERASE 35 U/L (9-52); ALKALINE PHOSPHATASE 140 U/L (38-126); ANION GAP 13 (5-19); ASPARTATE AMINO TRANSFERASE 30 U/L (14-36); BILIRUBIN,DIRECT 0.5 mg/dL (0.0-0.4); BILIRUBIN,TOTAL 1.1 mg/dL (0.2-1.3); BLOOD UREA NITROGEN 24 mg/dL (7-20); CALCIUM 10.5 mg/dL (8.4-10.2); CARBON DIOXIDE 23 mmol/L (22-30); CHLORIDE 107 mmol/L (98-107); GLUCOSE 105 mg/dL (75-110); LIPASE 46.4 U/L (23-300); POTASSIUM 4.6 mmol/L (3.6-5.0); SODIUM 142.9 mmol/L (137-145); TOTAL PROTEIN 8.4 g/dL (6.3-8.2)
[2018-10-19] MEDS ORDERED: NORMAL SALINE 1000 ML 1,000 ML IV ONE ×2 (14:37→14:45)
--- NOTE | 2018-10-19 16:05 | RADIOLOGY REPORT (SQ) ---
EXAM DESCRIPTION: U/S NON OB PEL W/DOPPLER COMPLETED DATE/TIME: 10/19/2018 3:29 pm REASON FOR STUDY: right adnexa pain COMPARISON: Pelvic ultrasound 08/18/2017. CT abdomen and pelvis 09/06/2018. TECHNIQUE: Grayscale images acquired of the pelvis via transvaginal approach and recorded on PACS. A dditional selected color Doppler and spectral images recorded. LIMITATIONS: None. FINDINGS: UTERUS: The uterus measures 8.5 x 4.2 x 5.8 cm. There is a 1.8 x 1.5 x 1.5 cm hypoechoic area at the myometrium, suggestive of a small fibroid. ENDOMETRIAL STRIPE: The endometrium measures 2 mm in double wall thickness. CERVIX: The cervix measures 2.7 cm in length. Nabothian cysts are noted. RIGHT OVARY AND DOPPLER: The right ovary measures 2.7 x 1.9 x 3.0 cm. Small follicles are noted. Fl ow by Doppler was shown to the right ovary. No adnexal mass was seen. LEFT OVARY AND DOPPLER: The left ovary measures 3.6 x 2.2 x 2.0 cm. Small follicles are noted. Flow by Doppler was shown to the left ovary. No adnexal mass was seen. FREE FLUID: None noted. IMPRESSION: Small uterine fibroid. Otherwise, no acute findings. TECHNICAL DOCUMENTATION: JOB ID: [id number] [place]-64 2010 [employer]- All Rights Reserved Rev Reading location - IP/workstation name: [email or web address]
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
== END 2018-10-19 16:15 | disposition left against medical advice (07) ==
LOC: ER 12:37
DX: F11.10 Opioid abuse, uncomplicated (principal); F15.10 Other stimulant abuse, uncomplicated; D25.9 Leiomyoma of uterus, unspecified; R10.817 Generalized abdominal tenderness; R10.31 Right lower quadrant pain; N93.9 Abnormal uterine and vaginal bleeding, unspecified; K62.5 Hemorrhage of anus and rectum; R39.89 Other symptoms and signs involving the genitourinary system; F17.200 Nicotine dependence, unspecified, uncomplicated; Z88.1 Allergy status to other antibiotic agents; Z87.442 Personal history of urinary calculi; Z85.828 Personal history of other malignant neoplasm of skin; Z53.20 Procedure and treatment not carried out because of patient's decision for unspecified reasons
CPT/HCPCS: 99281; 96360; 96361; 36415; 84702; 83690; 85025; 80053; 76856; 93976; J7030

== ENCOUNTER 2018-10-31 20:46 | Emergency (ER) | payer SELFPAY ==
--- NOTE | 2018-11-01 01:08 | ER Document Report ---
ED General - General Chief Complaint: Rash Stated Complaint: SKIN PROBLEM Time Seen by Provider: 11/01/18 00:57 TRAVEL OUTSIDE OF THE [place] IN LAST 30 DAYS: No - HPI Notes: Patient is a 33-year-old female that presents to the emergency department for chief complaint of rash. Patient states that she is seeing aero like bugs crawling around on her skin. She has been picking at them but is unable to get them off. She states the areas are now irritated. She believes other people are seeing the bugs as well. She does states she has been using methamphetamine hand has used it 3 times a day. She also is addicted to heroin. She denies any recent fever, chills, nausea, vomiting, diarrhea, chest pain and shortness of breath. She does wish to get help with her drug abuse. Past Medical History: Negative Past Surgical History: Negative Social History: Opiate addiction, methamphetamine abuse, daily tobacco Family History: Reviewed and noncontributory for presenting illness Allergies: Reviewed, see documented allergy list. REVIEW OF SYSTEMS: CONSTITUTIONAL : No fever No chills No diaphoresis No recent illness EENT: No vision changes No congestion No sore throat CARDIOVASCULAR: No chest pain No palpitations RESPIRATORY: No shortness of breath No cough No difficulty breathing GASTROINTESTINAL: No abdominal pain No nausea No vomiting No diarrhea GENITOURINARY: No dysuria No hematuria No difficulty urinating MUSCULOSKELETAL: No back pain No leg pain No arm pain SKIN: rashes No lesions LYMPHATIC: No swollen, enlarged glands. NEUROLOGICAL: No lightheadedness No headache No weakness No paresthesias PSYCHIATRIC: No anxiety No depression PHYSICAL EXAMINATION: Vital signs reviewed, nursing noted reviewed. GENERAL: Well-appearing, well-nourished and in no acute distress. HEAD: Atraumatic, normocephalic. EYES: Eyes appear normal, extraocular movements intact, sclera anicteric, conjunctiva are normal. ENT: nares patent, oropharynx clear without exudates. Moist mucous membranes. NECK: Normal range of motion, supple without lymphadenopathy LUNGS: Breath sounds clear to auscultation bilaterally and equal. No wheezes rales or rhonchi. HEART: Tachycardic and regular rhythm without murmurs ABDOMEN: Soft, nontender, normoactive bowel sounds. No rebound, guarding, or rigidity. No masses appreciated. EXTREMITIES: Nontender, good range of motion, no pitting or edema. NEUROLOGICAL: No focal neurological deficits. Moves all extremities spontaneously Motor and sensory grossly intact on exam. PSYCH: Anxious, hyperactive SKIN: Warm, Dry, normal turgor. Multiple small skin lesions on bilateral upper and lower extremities with sparing in the back, no active bleeding, purulent drainage or surrounding erythema - Related Data Allergies/Adverse Reactions: erythromycin base [Erythromycin Base] Allergy (Unknown, Verified 10/31/18 21:07) acetaminophen [From Tylenol] Adverse Reaction (Verified 10/31/18 21:07) Past Medical History - Social History Smoking Status: Current Every Day Smoker Family History: Reviewed & Not Pertinent Endocrine Medical History: Denies: Hx Diabetes Mellitus Type 2 Renal/ Medical History: Reports: Hx Kidney Stones. Denies: Hx Peritoneal Dialysis Malignancy Medical History: Reports: Hx Skin Cancer GI Medical History: Reports: Hx Gastroesophageal Reflux Disease Musculoskeletal Medical History: Reports Hx Arthritis, Reports Hx Musculoskeletal Deformity, Reports Hx Musculoskeletal Trauma - Fractured right fifth metacarpal Psychiatric Medical History: Reports: Hx Anxiety, Hx Bipolar Disorder, Hx Depression Traumatic Medical History: Reports: Hx Fractures - Right fifth metacarpal Past Surgical History: Reports: Hx Bowel Surgery - polyps removed, Hx Orthopedic Surgery - spinal fusion, Hx Tubal Ligation - Immunizations Hx Diphtheria, Pertussis, Tetanus Vaccination: Yes - 2013 Physical Exam - Vital signs Vitals: Temp Pulse Resp BP Pulse Ox 98 F 110 H 18 100/66 100 10/31/18 21:05 10/31/18 21:05 10/31/18 21:05 10/31/18 21:05 10/31/18 21:05 Course - Re-evaluation Re-evalutation: 11/01/18 01:07 Vitals reviewed. Nursing notes reviewed. Patient has pick timmons from her methamphetamine abuse. None of the lesions appear to be infected. She is otherwise afebrile and nontoxic in appearance. She is tachycardic and hyperstimulated. This is likely due to her recent methamphetamine use. She is stable at time of discharge. She was referred to [facility] for her drug abuse. She was counseled on wound care. - Vital Signs Vital signs: Temp Pulse Resp BP Pulse Ox 98 F 110 H 18 100/66 100 10/31/18 21:05 10/31/18 21:05 10/31/18 21:05 10/31/18 21:05 10/31/18 21:05 Discharge - Discharge Clinical Impression: Tactile hallucination, Methamphetamine abuse Condition: Stable Instructions: Dressing Instructions for Open Wounds ([facility]) Additional Instructions: Please return to the emergency department if you have any worsening, or concern of your symptoms. Please return to the emergency department if you develop chest pain, difficulty breathing, severe abdominal pain, or ongoing vomiting. Please follow-up with your primary care physician in 2-3 days and any other recommended physicians. If prescribed, take all medications as directed. If you have any questions or concerns do not hesitate to return the emergency department for evaluation. You do not have bugs crawling on your skin, this is a hallucination because you are using meth and ketamine. Please stop picking at your skin as this may cause infection. Keep the areas on your skin clean and dry. Wash the open sores 2-3 times daily with soapy water. If there are any areas that become more red or painful you should be evaluated again by a physician. Call [facility] for assistance getting off controlled substances Referrals: [facility] [Provider Group] - Follow up as needed
[2018-11-01 01:28] VITALS: BP 113/70
== END 2018-11-01 01:28 | disposition home or self-care (01) ==
LOC: ER 20:46
DX: R44.2 Other hallucinations (principal); F15.10 Other stimulant abuse, uncomplicated; R21 Rash and other nonspecific skin eruption; F17.200 Nicotine dependence, unspecified, uncomplicated; Z87.442 Personal history of urinary calculi; Z88.6 Allergy status to analgesic agent; Z88.3 Allergy status to other anti-infective agents
CPT/HCPCS: 99282

== ENCOUNTER 2018-11-19 20:11 | Emergency (ER) | payer SELFPAY | END 2018-11-19 21:49 | disposition left against medical advice (07) | LOC: ER 20:11 | DX: Z53.21 Procedure and treatment not carried out due to patient leaving prior to being seen by health care provider (principal) ==

== ENCOUNTER 2018-11-20 22:46 | Emergency (ER) | payer SELFPAY ==
[2018-11-20 23:38] VITALS: BP 113/96
--- NOTE | 2018-11-21 00:57 | ER Document Report ---
HPI - HPI Time Seen by Provider: 11/21/18 00:42 Pain Level: 2 Notes: Patient is a 33-year-old female with a history of methamphetamine abuse with last use a few weeks ago who presents to the emergency department complaining of insect bites on her skin and seeing insects on occasion. Patient believes that they may be burrowing in her skin. Patient states that she did go on and put it in a bag that she brought with her. Patient states that she was also exposed to summary that had scabies and is requesting treatment for that. Patient states that a few of the lesions are red and more sore than others. Patient states that she has been picking at them. She states that she has been here multiple times for similar complaint. No other concerns or complaints at this time. She is eating and drinking without difficult he. She is urinating normally and having normal bowel movements. Denies any headache, fever, neck pain, URI, sore throat, chest pain, palpitations, syncope, cough, shortness of breath, wheeze, dyspnea, abdominal pain, nausea/vomiting/diarrhea, urinary retention, dysuria, hematuria, joint pain. - ROS Systems Reviewed and Negative: Yes All other systems reviewed and negative - REPRODUCTIVE Reproductive: DENIES: : Past Medical History - Social History Smoking Status: Unknown if Ever Smoked Family History: Reviewed & Not Pertinent Endocrine Medical History: Denies: Hx Diabetes Mellitus Type 2 Renal/ Medical History: Reports: Hx Kidney Stones. Denies: Hx Peritoneal Dialysis Malignancy Medical History: Reports: Hx Skin Cancer GI Medical History: Reports: Hx Gastroesophageal Reflux Disease Musculoskeletal Medical History: Reports Hx Arthritis, Reports Hx Musculoskeletal Deformity, Reports Hx Musculoskeletal Trauma - Fractured right fifth metacarpal Psychiatric Medical History: Reports: Hx Anxiety, Hx Bipolar Disorder, Hx Depression Traumatic Medical History: Reports: Hx Fractures - Right fifth metacarpal Past Surgical History: Reports: Hx Bowel Surgery - polyps removed, Hx Orthopedic Surgery - spinal fusion, Hx Tubal Ligation - Immunizations Hx Diphtheria, Pertussis, Tetanus Vaccination: Yes - 2013 [facility] Provider Document - CONSTITUTIONAL Agree With Documented VS: Yes Notes: PHYSICAL EXAMINATION: GENERAL: Well-appearing, well-nourished and in no acute distress. HEAD: Atraumatic, normocephalic. EYES: Pupils equal round and reactive to light, extraocular movements intact, sclera anicteric, conjunctiva are normal. ENT: Nares patent and without discharge. oropharynx clear without exudates. No tonsilar hypertrophy or erythema. Moist mucous membranes. NECK: Normal range of motion, supple without lymphadenopathy LUNGS: Breath sounds clear to auscultation bilaterally and equal. No wheezes rales or rhonchi. HEART: Regular rate and rhythm without murmurs, rubs, gallops. ABDOMEN: Soft, nontender, nondistended abdomen. No guarding, no rebound. No masses appreciated. Normal bowel sounds present. No CVA tenderness bilaterally. Musculoskeletal: FROM to passive/active. Strength 5+/5. Extremities: No cyanosis, clubbing, or edema b/l. Peripheral pulses 2+. Capillary refill less than 3 seconds. NEUROLOGICAL: Cranial nerves grossly intact. Normal speech, normal gait. Normal sensory, motor exams PSYCH: Normal mood, normal affect. SKIN: multiple scabbed areas on her extremities and face. There is 1-2 lesions to the rt arm that appear more erythemic than the others w/o any fluctuance or purulence. Minimal warmth, no tenderness or streaks. No obvious lesions in the finger webs or waist. I did look at the small bug in the bag provided and it looks like a small crushed gnat. - INFECTION CONTROL TRAVEL OUTSIDE OF THE [place] IN LAST 30 DAYS: No Course - Re-evaluation Re-evalutation: 11/21/18 00:57 Patient is an afebrile, well-hydrated, 33-year-old female who presents to the emergency department with possible exposure to scabies as well as pick timmons from methamphetamine use. There are 1-2 lesions that appears to have mild surrounding erythema without fluctuance, purulence, or discharge. Patient is nontoxic-appearing and is tolerating p.o. without difficulty. No labs or imaging warranted at this time. Low suspicion for any sepsis, meningitis, necrotizing fasciitis, SJS, or other systemic emergent condition at this time. I will send her home with a prescription for permethrin cream due to possible exposure to scabies as well as Keflex. Advised patient to stop picking at her skin. Recheck with your PCM/dermatology in 3-5 days. Return to the ED with any other worsening/concerning symptoms. Patient is in agreement. - Vital Signs Vital signs: Temp Pulse Resp BP Pulse Ox 98.0 F 111 H 17 113/96 H 100 11/20/18 23:36 11/20/18 23:36 11/20/18 23:36 11/20/18 23:36 11/20/18 23:36 Discharge - Discharge Clinical Impression: Picking own skin, possible exposure to scabies Cellulitis Qualifiers: Site of cellulitis: extremity Site of cellulitis of extremity: upper extremity Laterality: right Qualified Code(s): L03.113 - Cellulitis of right upper limb Condition: Stable Disposition: HOME, SELF-CARE Instructions: Scabies ([facility]) Additional Instructions: Keep the skin clean Wash with soap and water Tylenol/ibuprofen if needed Triple antibiotic ointment daily Take medication as directed Scabies precautions as reviewed Monitor for any worsening symptoms Recheck with your PCM in 3-5 days Consider consult with Dermatology for ongoing/worsening symptoms Return to the ED with any worsening symptoms and/or development of fever, headache, chest pain, palpitations, syncope, shortness of breath, trouble breathing, abdominal pain, n/v/d, abscess, purulent discharge, red streaks, worsening swelling, or other worsening symptoms that are concerning to you. Prescriptions: Cephalexin Monohydrate [Keflex 500 mg Capsule] 500 mg PO TID #21 capsule Permethrin [Elimite] 60 gm TP ONCE PRN #60 cream.gm. PRN Reason: Forms: Elevated Blood Pressure Referrals: SOURAV TYLER DO [ACTIVE STAFF] - Follow up as needed
[2018-11-21] MEDS ORDERED: DIPHENHYDRAMINE HCL 50 MG CAPSULE PO ONE (01:18)
== END 2018-11-21 01:30 | disposition home or self-care (01) ==
LOC: ER 22:46
DX: L03.113 Cellulitis of right upper limb (principal); L98.9 Disorder of the skin and subcutaneous tissue, unspecified; F11.90 Opioid use, unspecified, uncomplicated; Z87.442 Personal history of urinary calculi; Z85.828 Personal history of other malignant neoplasm of skin
CPT/HCPCS: 99282

== ENCOUNTER 2018-12-03 13:49 | Emergency (ER) | payer SELFPAY ==
--- NOTE | 2018-12-03 15:04 | ER Document Report ---
ED Medical Screen (RME) - General Chief Complaint: Medical Clearance Stated Complaint: PAINFUL URINATION,ABDOMINAL PAIN Time Seen by Provider: 12/03/18 14:52 Mode of Arrival: Ambulatory Information source: Patient Notes: 33-year-old female presents the emergency department requesting a check for sexually transmitted diseases and medical clearance to go to [facility] for heroin abuse. Last used heroin this morning. Denies any other drugs. Denies alcohol. Denies suicidal or homicidal ideations. Patient states that her boyfriend has a history of gonorrhea and trichomonas. She does not know if he has been treated for the infections. Patient states that over the last week she has had a creamy discharge. She is also had dysuria. Patient states that her last menstrual period was in September and she's unsure if she's . She states that she has a history of a tubal ligation. I have greeted and performed a rapid initial assessment of this patient. A comprehensive ED assessment and evaluation of the patient, analysis of test results and completion of the medical decision making process will be conducted by additional ED providers. PHYSICAL EXAMINATION: GENERAL: Well-appearing, well-nourished and in no acute distress. HEAD: Atraumatic, normocephalic. EYES: Pupils equal round extraocular movements intact, conjunctiva are normal. ENT: Nares patent NECK: Normal range of motion LUNGS: No respiratory distress Musculoskeletal: Normal range of motion NEUROLOGICAL: Normal speech, normal gait. PSYCH: Normal mood, normal affect. SKIN: Warm, Dry, normal turgor, no rashes or lesions noted. TRAVEL OUTSIDE OF THE [place] IN LAST 30 DAYS: No - Related Data Allergies/Adverse Reactions: erythromycin base [Erythromycin Base] Allergy (Unknown, Verified 12/03/18 13:52) acetaminophen [From Tylenol] Adverse Reaction (Verified 12/03/18 13:52) Past Medical History - Social History Chew tobacco use (# tins/day): No Frequency of alcohol use: None Drug Abuse: Heroin Endocrine Medical History: Denies: Hx Diabetes Mellitus Type 2 Renal/ Medical History: Reports: Hx Kidney Stones. Denies: Hx Peritoneal Dialysis Malignancy Medical History: Reports: Hx Skin Cancer GI Medical History: Reports: Hx Gastroesophageal Reflux Disease Musculoskeltal Medical History: Reports Hx Arthritis, Reports Hx Musculoskeletal Deformity, Reports Hx Musculoskeletal Trauma - Fractured right fifth metacarpal Psychiatric Medical History: Reports: Hx Anxiety, Hx Bipolar Disorder, Hx Depression Traumatic Medical History: Reports: Hx Fractures - Right fifth metacarpal Past Surgical History: Reports: Hx Bowel Surgery - polyps removed, Hx Orthopedic Surgery - spinal fusion, Hx Tubal Ligation - Immunizations Hx Diphtheria, Pertussis, Tetanus Vaccination: Yes - 2013 History of Influenza Vaccine for 08/2017 - 01/2018 Season: No Physical Exam - Vital signs Vitals: Temp Pulse Resp BP Pulse Ox 98.3 F 96 20 110/72 100 12/03/18 14:09 12/03/18 14:09 12/03/18 14:12/03/18 14:09 12/03/18 14:09 Course - Vital Signs Vital signs: Temp Pulse Resp BP Pulse Ox 98.3 F 96 20 110/72 100 12/03/18 14:09 12/03/18 14:09 12/03/18 14:09 12/03/18 14:12/03/18 14:09
[2018-12-03 15:30] LABS: ABSOLUTE EOSINOPHILS # (AUTO) 0.1 10^3/uL (0.0-0.6); ABSOLUTE LYMPHOCYTES (AUTO) 1.3 10^3/uL (0.5-4.7); ABSOLUTE MONOCYTES (AUTO) 0.4 10^3/uL (0.1-1.4); ABSOLUTE NEUT (AUTO) 2.8 10^3/uL (1.7-8.2); BASOPHILS % (AUTO) 0.5 % (0-2); HEMATOCRIT 36.5 % (36.0-47.0); HEMOGLOBIN 12.5 g/dL (12.0-15.5); LYMPHOCYTES % (AUTO) 28.2 % (13-45); MEAN CORPUSCULAR HEMOGLOBIN 29.2 pg (27.0-33.4); MEAN CORPUSCULAR HGB CONC 34.1 g/dL (32.0-36.0); MEAN CORPUSCULAR VOLUME 86 fl (80-97); MONOCYTES % (AUTO) 8.1 % (3-13); PLATELET COUNT 247 10^3/uL (150-450); RED BLOOD COUNT 4.27 10^6/uL (3.72-5.28); RED CELL DISTRIBUTION WIDTH 13.9 % (11.5-14.0); SEGMENTED NEUTROPHILS % (AUTO) 60.2 % (42-78); TOTAL CELLS COUNTED % (AUTO) 100 %; WHITE BLOOD COUNT 4.6 10^3/uL (4.0-10.5)
[2018-12-03 15:50] LABS: BLOOD UREA NITROGEN 17 mg/dL (7-20); CALCIUM 9.7 mg/dL (8.4-10.2); GLUCOSE 98 mg/dL (75-110)
[2018-12-03 15:51] LABS: ALANINE AMINOTRANSFERASE 118 U/L (9-52); ALBUMIN 4.5 g/dL (3.5-5.0); ALKALINE PHOSPHATASE 166 U/L (38-126); ANION GAP 9 (5-19); ASPARTATE AMINO TRANSFERASE 99 U/L (14-36); BILIRUBIN,DIRECT 0.4 mg/dL (0.0-0.4); BILIRUBIN,TOTAL 0.5 mg/dL (0.2-1.3); CARBON DIOXIDE 27 mmol/L (22-30); CHLORIDE 105 mmol/L (98-107); POTASSIUM 4.6 mmol/L (3.6-5.0); SODIUM 140.9 mmol/L (137-145); TOTAL PROTEIN 7.7 g/dL (6.3-8.2)
[2018-12-03 15:52] LABS: ACETAMINOPHEN < 10 ug/mL (10-30); ALCOHOL < 10 mg/dL (NONE DETECTED); SALICYLATE < 1.0 mg/dL (2.0-20.0)
[2018-12-03 15:53] LABS: APPEARANCE,URINE SLIGHTLY-CLOUDY; BILIRUBIN,URINE NEGATIVE (NEGATIVE); COLOR,URINE YELLOW; GLUCOSE, URINE NEGATIVE (NEGATIVE); KETONES,URINE NEGATIVE (NEGATIVE); LEUKOCYTE ESTERASE,URINE NEGATIVE (NEGATIVE); NITRITE,URINE NEGATIVE (NEGATIVE); PROTEIN,URINE NEGATIVE (NEGATIVE); URINE SPECIFIC GRAVITY 1.029
--- NOTE | 2018-12-03 16:02 | ER Document Report ---
ED General - General Chief Complaint: Medical Clearance Stated Complaint: PAINFUL URINATION,ABDOMINAL PAIN Time Seen by Provider: 12/03/18 14:52 Mode of Arrival: Ambulatory Information source: Patient Notes: Patient is a 33-year-old female who presents to the emergency department requesting medical clearance for detox. Patient reports that she uses heroin, last use was this morning. She states that she would like to go to detox at [facility]. She further states that she has pain with urination and abnormal vaginal discharge. She states this is been going on for a little less than a week. She is concerned that she may have an STD as she states her partner tested positive for STDs and she is not sure if he got treated. Patient has past medical history of bipolar disorder. TRAVEL OUTSIDE OF THE [place] IN LAST 30 DAYS: No - Related Data Allergies/Adverse Reactions: erythromycin base [Erythromycin Base] Allergy (Unknown, Verified 12/03/18 13:52) acetaminophen [From Tylenol] Adverse Reaction (Verified 12/03/18 13:52) Past Medical History - General Information source: Patient - Social History Smoking Status: Current Every Day Smoker Chew tobacco use (# tins/day): No Frequency of alcohol use: None Drug Abuse: Heroin Family History: Reviewed & Not Pertinent Patient has suicidal ideation: No Patient has homicidal ideation: No Endocrine Medical History: Denies: Hx Diabetes Mellitus Type 2 Renal/ Medical History: Reports: Hx Kidney Stones. Denies: Hx Peritoneal Dialysis Malignancy Medical History: Reports: Hx Skin Cancer GI Medical History: Reports: Hx Gastroesophageal Reflux Disease Musculoskeletal Medical History: Reports Hx Arthritis, Reports Hx Musculoskeletal Deformity, Reports Hx Musculoskeletal Trauma - Fractured right fifth metacarpal Psychiatric Medical History: Reports: Hx Anxiety, Hx Bipolar Disorder, Hx Depression Traumatic Medical History: Reports: Hx Fractures - Right fifth metacarpal Past Surgical History: Reports: Hx Bowel Surgery - polyps removed, Hx Orthopedic Surgery - spinal fusion, Hx Tubal Ligation - Immunizations Hx Diphtheria, Pertussis, Tetanus Vaccination: Yes - 2013 Review of Systems - Review of Systems Constitutional: No symptoms reported EENT: No symptoms reported Cardiovascular: No symptoms reported Respiratory: No symptoms reported Gastrointestinal: No symptoms reported Genitourinary: Dysuria, Frequency Female Genitourinary: No symptoms reported Musculoskeletal: No symptoms reported Skin: No symptoms reported Hematologic/Lymphatic: No symptoms reported Neurological/Psychological: Depression Physical Exam - Vital signs Vitals: Temp Pulse Resp BP Pulse Ox 98.3 F 96 20 110/72 100 12/03/18 14:09 12/03/18 14:09 12/03/18 14:09 12/03/18 14:12/03/18 14:09 - Notes Notes: PHYSICAL EXAMINATION: GENERAL: Well-appearing, well-nourished and in no acute distress. HEAD: Atraumatic, normocephalic. EYES: Pupils equal round and reactive to light, extraocular movements intact, conjunctiva are normal. ENT: Nares patent, oropharynx clear without exudates. Moist mucous membranes. NECK: Normal range of motion, supple without lymphadenopathy LUNGS: Breath sounds clear to auscultation bilaterally and equal. No wheezes rales or rhonchi. HEART: Regular rate and rhythm without murmurs ABDOMEN: Soft, nontender, nondistended abdomen. No guarding, no rebound. No masses appreciated. Female : No CVA tenderness. Musculoskeletal: Normal range of motion, no pitting or edema. No cyanosis. NEUROLOGICAL: Cranial nerves grossly intact. Normal speech, normal gait. Normal sensory, motor exams PSYCH: Normal mood, normal affect. SKIN: Warm, Dry, normal turgor, few track timmons noted on patient's bilateral arms. Course - Re-evaluation Re-evalutation: 12/03/18 17:51 Patient is voluntary at this point as she denies any suicidal or homicidal ID patient's. Patient reports she just needs medical clearance so that she can try to go to [facility]. Unfortunately psych was not able to see her today due to the arrival time of the patient. So she will stay overnight voluntarily and see them in the morning. No indication at this time for IVC. CBC, CMP and urinalysis are unremarkable. Tox screen shows positive cocaine and positive opiates. EKG reveals a sinus rhythm, rate of 88, QTc 446, normal axis with no ST segment elevations or depressions. This is unchanged from her previous EKG at this facility done on 09/06/2018. Wet mount does show 3+ bacteria but also shows 3+ epithelials. Awaiting gonorrhea and Chlamydia testing. 12/03/18 19:07 Complaint and gonorrhea testing are negative. Patient updated on test results. Patient resting comfortably in room 44 without any complaints. Awaiting mental health team to evaluate in the morning. Patient medically cleared at this time. - Vital Signs Vital signs: Temp Pulse Resp BP Pulse Ox 98.3 F 96 20 110/72 100 12/03/18 14:09 12/03/18 14:09 12/03/18 14:09 12/03/18 14:09 12/03/18 14:09 - Laboratory Result Diagrams: 12/03/18 15:09 12/03/18 15:09 Laboratory results interpreted by me: 12/03/18 12/03/18 15:09 15:09 AST 99 H ALT 118 H Alkaline Phosphatase 166 H Urine Urobilinogen 4.0 H Salicylates < 1.0 L Acetaminophen < 10 L Discharge - Discharge Clinical Impression: Heroin abuse Condition: Stable Disposition: PSYCH HOSP/UNIT
[2018-12-03 16:04] LABS: URINE AMPHETAMINES SCREEN NEGATIVE; URINE BARBITURATES SCREEN NEGATIVE; URINE BENZODIAZEPINES SCREEN NEGATIVE; URINE COCAINE SCREEN UNCONFIRMED POSITIVE; URINE MARIJUANA (THC) SCREEN NEGATIVE; URINE METHADONE SCREEN NEGATIVE; URINE PHENCYCLIDINE SCREEN NEGATIVE
[2018-12-03 16:39] LABS: BACTERIA (WET MOUNT) 3+ BACTERIA SEEN; EPITHELIALS (WET MOUNT) 3+ EPITHELIALS SEEN; WBCS (WET MOUNT) 2+ WBCS SEEN; YEAST (WET MOUNT) NO YEAST SEEN
[2018-12-03 16:40] LABS: T.VAGINALIS (WET MOUNT) NO TRICHOMONAS SEEN
[2018-12-03] MEDS ORDERED: METRONIDAZOLE 500 MG TABLET PO SCH (18:00)
[2018-12-03 18:04] LABS: CHLAM PCR NOT DETECTED (NOT DETECT); GON PCR NOT DETECTED (NOT DETECT)
--- NOTE | 2018-12-03 18:48 | EKG REPORT ---
SEVERITY:- NORMAL ECG - SINUS RHYTHM : Confirmed by: Subhash Anderson MD 03-Dec-2018 18:47:23
[2018-12-04] MEDS ORDERED: BACLOFEN 10 MG TABLET PO ONE (04:54)
[2018-12-04 07:44] VITALS: BP 103/59
--- NOTE | 2018-12-04 07:54 | ER Document Report ---
ED Medical Screen (RME) - General Chief Complaint: Medical Clearance Stated Complaint: PAINFUL URINATION,ABDOMINAL PAIN Time Seen by Provider: 12/03/18 14:52 Mode of Arrival: Ambulatory Notes: [facility] screen by [facility] but does not meet criteria for involuntary hold. The patient wishes to be discharged. She was given instructions for opioid use disorder, and resources by the psychiatric team and I prescribed her a naloxone autoinjector. TRAVEL OUTSIDE OF THE [place] IN LAST 30 DAYS: No - Related Data Allergies/Adverse Reactions: erythromycin base [Erythromycin Base] Allergy (Unknown, Verified 12/03/18 13:52) acetaminophen [From Tylenol] Adverse Reaction (Verified 12/03/18 13:52) Past Medical History - Social History Chew tobacco use (# tins/day): No Frequency of alcohol use: None Drug Abuse: Heroin Endocrine Medical History: Denies: Hx Diabetes Mellitus Type 2 Renal/ Medical History: Reports: Hx Kidney Stones. Denies: Hx Peritoneal Dialysis Malignancy Medical History: Reports: Hx Skin Cancer GI Medical History: Reports: Hx Gastroesophageal Reflux Disease Musculoskeltal Medical History: Reports Hx Arthritis, Reports Hx Musculoskeletal Deformity, Reports Hx Musculoskeletal Trauma - Fractured right fifth metacarpal Psychiatric Medical History: Reports: Hx Anxiety, Hx Bipolar Disorder, Hx Depression Traumatic Medical History: Reports: Hx Fractures - Right fifth metacarpal Past Surgical History: Reports: Hx Bowel Surgery - polyps removed, Hx Orthopedic Surgery - spinal fusion, Hx Tubal Ligation - Immunizations Hx Diphtheria, Pertussis, Tetanus Vaccination: Yes - 2013 History of Influenza Vaccine for 08/2017 - 01/2018 Season: No Physical Exam - Vital signs Vitals: Temp Pulse Resp BP Pulse Ox 98.3 F 96 20 110/72 100 12/03/18 14:09 12/03/18 14:09 12/03/18 14:09 12/03/18 14:09 12/03/18 14:09 Course - Vital Signs Vital signs: Temp Pulse Resp BP Pulse Ox 98.0 F 104 H 20 103/59 L 95 12/04/18 07:43 12/04/18 07:43 12/04/18 04:30 12/04/18 07:43 12/04/18 07:43 - Laboratory Result Diagrams: 12/03/18 15:09 12/03/18 15:09 Laboratory results interpreted by me: 12/03/18 12/03/18 15:09 15:09 AST 99 H ALT 118 H Alkaline Phosphatase 166 H Urine Urobilinogen 4.0 H Salicylates < 1.0 L Acetaminophen < 10 L Doctor's Discharge - Discharge Clinical Impression: Heroin abuse Condition: Good Disposition: HOME, SELF-CARE Additional Instructions: TCD attached resources regarding opioid abuse Prescriptions: Naloxone HCl [Evzio] 0.4 mg IJ ONCE PRN #1 auto.injct PRN Reason:
--- NOTE | 2018-12-04 12:02 | PSYCHOLOGICAL NOTE ---
Psych Note - Psych Note Date seen by psych provider: 12/04/18 Time seen by psych provider: 07:30 Psych Note: Reason for Consult: detox Patient is a 33-year-old female who presents to the emergency department requesting medical clearance for detox. Patient reports that she uses heroin, last use was this morning. She states that she would like to go to detox at [facility]. patient reports that she came to [facility] for detox states that she uses heroin every day for the last 15 years. She confirms that she has been in contact with [facility] crisis however it has been since approximately June or July since her last contact with them. She denies thoughts of wanting to harm herself or others. Patient denies transportation stating that she needs assistance in getting into detox. Clinician explained process of needing to get mobile crisis involved where she can continue to receive assistance in getting into substance abuse treatment patient became very irritable and states that if she had known the process last night she would have left. She reports that she would never have stated if she had no that she would not be transported to a detox facility this morning. Clinician confirmed again the patient does not have thoughts of wanting to harm herself or others. Patient is requesting discharge paperwork immediately. Patient is alert and orientated to person, place, time and circumstance. Mood is irritable with congruent affect. Patient reports wanting assistance with detox. She denies suicidal and homicidal ideation. Delusions are absent behaviors congruent with an intact reality based presentation i.e. organized linear thought process. Eye contact is fair. Conversational speech clearly demonstrates her irritability. Intellectual abilities appear to be within the average range. Attention and concentration are fair. Insight, judgment, impulse control are fair. No medication recommendations at this time 292.9 (F14.99) unspecified stimulant related disorder; cocaine 292.9 (F11.99) unspecified opiate related disorder; heroin Impression\plan: Patient is cleared from acute psychiatric services. Patient discloses wanting assistance in obtaining detox. Once patient learned that she would not be transported for voluntary services she became very irritable and demanding to leave immediately. Patient confirms she does not have thoughts of wanting to harm herself or others. Patient was not demonstrating any behaviors indicating psychosis. Patient provided resource list of area providers including detox facilities. Patient was recommended to contact [facility] for continued assistance in obtaining detox (she was provided contact information). Dr. To was consulted and care management this patient; attending physicians in agreement with recommendations and disposition.
== END 2018-12-04 08:05 | disposition home or self-care (01) ==
LOC: ER 13:49
DX: F11.10 Opioid abuse, uncomplicated (principal); N89.8 Other specified noninflammatory disorders of vagina; R35.0 Frequency of micturition; R30.0 Dysuria; F17.200 Nicotine dependence, unspecified, uncomplicated; E11.9 Type 2 diabetes mellitus without complications; Z20.2 Contact with and (suspected) exposure to infections with a predominantly sexual mode of transmission; Z88.1 Allergy status to other antibiotic agents; F32.9 Major depressive disorder, single episode, unspecified; Z98.51 Tubal ligation status
CPT/HCPCS: 36415; 80053; 80307; 81001; 84703; 85025; 87210; 87491; 87591; 93005; 93010; 99284

== ENCOUNTER 2019-01-04 01:23 | Emergency (ER) | payer SELFPAY ==
[2019-01-04] MEDS ORDERED: ASPIRIN 81 MG TABLET, CHEWABLE PO ONE (01:58)
--- NOTE | 2019-01-04 02:00 | ER Document Report ---
ED General - General Chief Complaint: Breathing Difficulty Stated Complaint: DIFFICULTY BREATHING Time Seen by Provider: 01/04/19 01:47 Primary Care Provider: [facility] [Provider Group] - Follow up tomorrow Notes: Patient is a 33-year-old female with a history of polar disorder and polysubstance abuse including daily heroin use that comes to the emergency department for chief complaint of shortness of breath. She states this became very noticeable tonight. She reports discomfort generally in her chest as well. She also reports an ongoing rash over her arms where she thinks she is being bitten by insects. She denies fever chills, nausea or vomiting. She smokes. She has had a tubal ligation. TRAVEL OUTSIDE OF THE [place] IN LAST 30 DAYS: No - Related Data Allergies/Adverse Reactions: erythromycin base [Erythromycin Base] Allergy (Unknown, Verified 01/04/19 01:26) acetaminophen [From Tylenol] Adverse Reaction (Verified 01/04/19 01:26) Past Medical History - General Information source: Patient - Social History Smoking Status: Current Every Day Smoker Frequency of alcohol use: None Drug Abuse: Heroin, Methamphetamine Lives with: Family Family History: Reviewed & Not Pertinent Endocrine Medical History: Denies: Hx Diabetes Mellitus Type 2 Renal/ Medical History: Reports: Hx Kidney Stones. Denies: Hx Peritoneal Dialysis Malignancy Medical History: Reports: Hx Skin Cancer GI Medical History: Reports: Hx Gastroesophageal Reflux Disease Musculoskeletal Medical History: Reports Hx Arthritis, Reports Hx Musculoskeletal Deformity, Reports Hx Musculoskeletal Trauma - Fractured right fifth metacarpal Psychiatric Medical History: Reports: Hx Anxiety, Hx Bipolar Disorder, Hx Depression Traumatic Medical History: Reports: Hx Fractures - Right fifth metacarpal Past Surgical History: Reports: Hx Bowel Surgery - polyps removed, Hx Orthopedic Surgery - spinal fusion, Hx Tubal Ligation - Immunizations Hx Diphtheria, Pertussis, Tetanus Vaccination: Yes - 2013 Review of Systems - Review of Systems Constitutional: No symptoms reported EENT: No symptoms reported Cardiovascular: See HPI Respiratory: See HPI Gastrointestinal: No symptoms reported Genitourinary: No symptoms reported Female Genitourinary: No symptoms reported Musculoskeletal: No symptoms reported Skin: See HPI Hematologic/Lymphatic: No symptoms reported Neurological/Psychological: No symptoms reported Physical Exam - Vital signs Vitals: Temp Pulse Resp BP Pulse Ox 97.8 F 106 H 20 148/123 H 98 01/04/19 01:39 01/04/19 01:39 01/04/19 01:39 01/04/19 01:39 01/04/19 01:39 - Notes Notes: GENERAL: Alert, fidgeting, slightly anxious, restless HEAD: Normocephalic, atraumatic. EYES: Pupils equal, round, and reactive to light. Extraocular movements intact. ENT: Oral mucosa moist, tongue midline. Oropharynx unremarkable. Airway patent. Nares patent, no nasal septal hematoma, TM's intact. NECK: Full range of motion. Supple. Trachea midline. LUNGS: Clear to auscultation bilaterally, no wheezes, rales, or rhonchi. Mild tachypnea without labored breathing. HEART: Tachycardia, normal rhythm, no murmur. ABDOMEN: Soft, non-tender. Non-distended. Bowel sounds present in all 4 quadrants. GENITOURINARY: Deferred EXTREMITIES: Moves all 4 extremities spontaneously. No edema, normal radial and dorsalis pedis pulses bilaterally. No cyanosis. BACK: no cervical, thoracic, lumbar midline tenderness. No saddle anesthesia, normal distal neurovascular exam. NEUROLOGICAL: Alert and oriented x3. Normal speech. [cranial nerves II through XII grossly intact]. PSYCH: Anxious SKIN: Picking at multiple areas on both arms, several areas have scabs, several recently open areas. No evidence of bites, area does not appear to be scabies, no erythema, induration, fluctuance suggesting infection. Course - Re-evaluation Re-evalutation: On initial evaluation patient reporting to me that she had the sensation she could not breathe, she was anxious, almost tearful. I do hear good breath sounds bilaterally. Her pulse oxygenation is 98% on room air. She is slightly tachypneic. She is tachycardic. Because of her reported chest pain and shortness of breath along with polysubstance abuse workup initiated. Chest x-ray appears unremarkable, report is pending. EKG shows sinus rhythm with no T wave inversions or ST segment changes in consecutive leads. CBC unremarkable. Chemistry generally unremarkable. Troponin negative. test is negative. Reevaluated patient. I did provide her with Benadryl for the itching, she has a trouble with picking and scratching. I do not see any evidence of insect bites, patient appears to have picked her skin because of methamphetamine and is scratching at them. I discussed this with patient. She states that she does understand this is from picking and agrees this is not from a scabies or insect bites. I do not see any evidence of cellulitis on exam. Areas cleaned and she was provided with bacitracin over the areas as well here. Patient still somewhat tachycardic and complains of shortness of breath. She states she is scared she has a "clot". Because of her IV drug abuse, tachycardia, shortness of breath decision was made to proceed with CAT scan to rule out pulmonary emboli, septic pulmonary emboli, aspiration pneumonia, or other concerning abnormality. CTA of the chest is unremarkable. I discussed with the patient. She is actu ally very relieved. She became much more calm and conversational. I offered her to stay and speak with the mental health team about her options for substance abuse, I have discussed with her Subutex and detox programs. Patient states she has been on Subutex before, she states it makes her vomit. I explained that this is because she took it while she had heroin in her system and if she would wait 24 hours and then be placed on it she would have much better results. She states she would consider this but she thinks she needs a different alternative. She states that she already knows the follow-ups, she has gone through detox before, she states that she is independent now and free from her children temporarily because they are staying with her father, she states that she will follow-up in place herself in these programs but she does not want to stay at this time. She denies SI or HI. She states she will return if there is any concerns. She understands that substance abuse especially with heroin or methamphetamine will lead to serious comorbidities and . - Vital Signs Vital signs: Temp Pulse Resp BP Pulse Ox 97.8 F 106 H 20 148/123 H 98 01/04/19 01:39 01/04/19 01:39 01/04/19 01:39 01/04/19 01:39 01/04/19 01:39 - Laboratory Result Diagrams: 01/04/19 02:30 01/04/19 02:30 Laboratory results interpreted by me: 01/04/19 01/04/19 02:30 02:30 RDW 14.3 H Seg Neutrophils % 33.7 L Lymphocytes % 53.0 H Carbon Dioxide 31 H Discharge - Discharge Clinical Impression: Anxiety, Substance dependence, Shortness of breath Chest pain Qualifiers: Chest pain type: unspecified Qualified Code(s): R07.9 - Chest pain, unspecified Condition: Stable Disposition: HOME, SELF-CARE Additional Instructions: Your blood tests and your imaging do not show any concerning findings. Please follow-up with [facility] for additional management of your substance dependence or the use will lead to your . Try not to pick the areas over your skin, keep them clean with soap and water, you can apply topical antibiotic. There is no sign of any insect problem. Return to the emergency department for any concerning or worsening symptoms including fever, difficulty breathing, passing out, or something is not right. Referrals: [facility] [Provider Group] - Follow up tomorrow
[2019-01-04 02:49] LABS: ABSOLUTE EOSINOPHILS # (AUTO) 0.1 10^3/uL (0.0-0.6); ABSOLUTE MONOCYTES (AUTO) 0.6 10^3/uL (0.1-1.4); ABSOLUTE NEUT (AUTO) 1.9 10^3/uL (1.7-8.2); BASOPHILS % (AUTO) 0.4 % (0-2); EOSINOPHILS % (AUTO) 2.6 % (0-6); HEMATOCRIT 36.5 % (36.0-47.0); HEMOGLOBIN 12.5 g/dL (12.0-15.5); MEAN CORPUSCULAR HEMOGLOBIN 29.4 pg (27.0-33.4); MEAN CORPUSCULAR HGB CONC 34.3 g/dL (32.0-36.0); MEAN CORPUSCULAR VOLUME 86 fl (80-97); MONOCYTES % (AUTO) 10.3 % (3-13); PLATELET COUNT 237 10^3/uL (150-450); RED BLOOD COUNT 4.27 10^6/uL (3.72-5.28); RED CELL DISTRIBUTION WIDTH 14.3 % (11.5-14.0); SEGMENTED NEUTROPHILS % (AUTO) 33.7 % (42-78); TOTAL CELLS COUNTED % (AUTO) 100 %; WHITE BLOOD COUNT 5.6 10^3/uL (4.0-10.5)
[2019-01-04 03:04] LABS: ANION GAP 7 (5-19); BLOOD UREA NITROGEN 16 mg/dL (7-20); CALCIUM 10.1 mg/dL (8.4-10.2); CARBON DIOXIDE 31 mmol/L (22-30); CHLORIDE 107 mmol/L (98-107); GLUCOSE 107 mg/dL (75-110); SODIUM 144.5 mmol/L (137-145)
[2019-01-04] MEDS ORDERED: DIPHENHYDRAMINE HCL 50 MG/ML VIAL IV ONE (03:05)
--- NOTE | 2019-01-04 04:24 | RADIOLOGY REPORT (SQ) ---
CLINICAL HISTORY: tachycardia, shortness of breath, IVDA COMPARISON: None. 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 MIPS reconstructions were generated. This exam was performed according to our departmental dose-optimization program, which includes automated exposure control, adjustment of the mA and/or kV according to patient size and/or use of iterative reconstruction technique. MIP images were generated. FINDINGS: Thoracic aorta is normal in course and caliber without aneurysm or dissection. Pulmonary arteries are adequately opacified without acute or chronic filling defects. The heart is normal in size. There is no pericardial effusion. Intrathoracic lymph nodes are not enlarged. There is no pleural effusion, pleural thickening or pneumothorax. Central airways are patent. Lungs are clear with no consolidation, mass or interstitial lung disease. There are no acute abnormalities within the limited images of the upper abdomen. There are no acute osseous findings. No suspicious bony lesions. IMPRESSION: No aortic dissection or aneurysm. No pulmonary embolus. No pneumonia.
--- NOTE | 2019-01-04 04:56 | RADIOLOGY REPORT (SQ) ---
EXAM DESCRIPTION: XR CHEST 1 VIEW COMPLETED DATE/TME: 01/04/2019 01:58 CLINICAL HISTORY: 33 years, Female, shortness of breath, chest pain COMPARISON: None. NUMBER OF VIEWS: One TECHNIQUE: AP view of the chest LIMITATIONS: None. FINDINGS: Lungs are clear. The heart is normal in size. There is no pneumothorax or pleural effusion. Bones are unremarkable. IMPRESSION: No acute cardiopulmonary abnormality copyright 2010 [employer]- All Rights Reserved
[2019-01-04 05:18] VITALS: BP 140/98
--- NOTE | 2019-01-04 22:48 | EKG REPORT ---
SEVERITY:- NORMAL ECG - SINUS RHYTHM : Confirmed by: Souleymane Tirado 04-Jan-2019 22:48:05
== END 2019-01-04 04:50 | disposition home or self-care (01) ==
LOC: ER 01:23
DX: F41.9 Anxiety disorder, unspecified (principal); F17.200 Nicotine dependence, unspecified, uncomplicated; F15.10 Other stimulant abuse, uncomplicated; F11.10 Opioid abuse, uncomplicated; R07.9 Chest pain, unspecified; R00.0 Tachycardia, unspecified; R23.4 Changes in skin texture; R06.02 Shortness of breath; R09.89 Other specified symptoms and signs involving the circulatory and respiratory systems; Z88.1 Allergy status to other antibiotic agents; Z85.828 Personal history of other malignant neoplasm of skin
CPT/HCPCS: 93005; 99284; 96374; 36415; 84703; 85025; 80048; 84484; 71045; 71275; 93010; J1200

== ENCOUNTER 2019-01-24 07:31 | Emergency (ER) | payer SELFPAY ==
[2019-01-24 07:51] VITALS: BP 97/84
--- NOTE | 2019-01-24 08:57 | ER Document Report ---
ED General - General Chief Complaint: Pelvic Pain Stated Complaint: PELVIC PAIN Time Seen by Provider: 01/24/19 08:25 TRAVEL OUTSIDE OF THE [place] IN LAST 30 DAYS: No - HPI Notes: Patient is a 33-year-old female drug abuser who presents emergency department complaining of right lower quadrant/lower pelvic pain that has been ongoing over the last couple days. Patient describes the pain as sharp. Patient states the pain does not radiate. She has been able to eat and drink without difficulties. She is urinating normally and having normal bowel movements. She has not noticed any vaginal discharge, odor, or bleeding. Patient does not report any surgical history to her abdomen/pelvis. On a side note, patient is complaining of bugs living in her skin and in her vessels attaching to her blood and causing it to clot (she complains about this chronically). She did present with what appears to be an insulin needle/syringe with blood in it that she obtained and states that there is an insect inside. Denies any headache, fever, neck pain, URI, sore throat, chest pain, palpitations, syncope, cough, shortness of breath, wheeze, dyspnea, nausea/vomiting/diarrhea, urinary retention, dysuria, salo turia, loss of control of bowel or bladder, numbness/tingling, saddle anesthesia, muscle paralysis/weakness. - Related Data Allergies/Adverse Reactions: erythromycin base [Erythromycin Base] Allergy (Unknown, Verified 01/24/19 07:34) acetaminophen [From Tylenol] Adverse Reaction (Verified 01/24/19 07:34) Past Medical History - Social History Smoking Status: Current Every Day Smoker Family History: Reviewed & Not Pertinent Endocrine Medical History: Denies: Hx Diabetes Mellitus Type 2 Renal/ Medical History: Reports: Hx Kidney Stones. Denies: Hx Peritoneal Dialysis Malignancy Medical History: Reports: Hx Skin Cancer GI Medical History: Reports: Hx Gastroesophageal Reflux Disease Musculoskeletal Medical History: Reports Hx Arthritis, Reports Hx Musculoskeletal Deformity, Reports Hx Musculoskeletal Trauma - Fractured right fifth metacarpal Psychiatric Medical History: Reports: Hx Anxiety, Hx Bipolar Disorder, Hx Depression Traumatic Medical History: Reports: Hx Fractures - Right fifth metacarpal Past Surgical History: Reports: Hx Bowel Surgery - polyps removed, Hx Orthopedic Surgery - spinal fusion, Hx Tubal Ligation - Immunizations Hx Diphtheria, Pertussis, Tetanus Vaccination: Yes - 2013 Review of Systems - Review of Systems -: Yes All other systems reviewed and negative Physical Exam - Vital signs Vitals: Temp Pulse Resp BP Pulse Ox 98.6 F 103 H 18 97/84 L 99 01/24/19 07:49 01/24/19 07:49 01/24/19 07:49 01/24/19 07:49 01/24/19 07:49 - Notes Notes: PHYSICAL EXAMINATION: GENERAL: Well-appearing, well-nourished and in no acute resp distress. Pt crying and picking at her skin, scabs to the extremities. LUNGS: Breath sounds clear to auscultation bilaterally and equal. No wheezes rales or rhonchi. HEART: Regular rate and rhythm without murmurs ABDOMEN: Soft, nondistended abdomen. Normal bowel sounds present. mild rt CVA tenderness. + tenderness lower pelvic midline/rt and RLQ with ?guarding. Pt won't relax her stomach well enough for me to decipher exact location at this time. Female : No inguinal adenopathy. External genitalia without erythema, lesions, or masses. Vaginal mucosa pink with white discharge. Cervix parous, pink, and without discharge. Uterus is smooth. No adnexal tenderness. No CMT. Musculoskeletal: FROM to passive/active. Strength 5+/5. Extremities: No cyanosis/clubbing/edema b/l. Peripheral pulses 2+. Capillary refill less than 3 seconds. NEUROLOGICAL: Normal speech, normal gait. Normal sensory, motor exams PSYCH: anxious, crying SKIN: picking scabs noted to her extremities. no erythema, abscess, or streaks. Course - Re-evaluation Re-evalutation: 01/24/19 12:09 Patient is an afebrile, well-hydrated, 33-year-old female who presents the emergency department with suspected pyelonephritis. Vitals are acceptable without significant tachycardia, tachypnea, or hypoxia. PE is otherwise unremarkable. Patient is nontoxic-appearing and is tolerating p.o. without d ifficulty. CBC shows a mildly elevated white count. CMP, urinalysis, hCG otherwise unremarkable. Wet mount shows possible bacterial vaginosis. Chlamydia/gonorrhea negative. Transvaginal ultrasound and pelvic exam was otherwise unremarkable. No further labs or imaging warranted at this time. I did review with Dr. Tabares who recommended admit for observation which patient has adamantly declined. Patient is requesting to go home. Risk/benefit thoroughly reviewed including worsening symptoms/illness and even . Antibiotic choice was reviewed as well and Bactrim is recommended after discussion with Dr. Tabares. Patient is agreeable to this medicine. Low suspicion/risk for acute appendi citis, bowel obstruction, acute cholecystitis, acute cholangitis, perforated diverticulitis, incarcerated hernia, pancreatitis, perforated ulcer, peritonitis, sepsis, pelvic inflammatory disease, ectopic , tubo- ovarian abscess, ovarian torsion, or other systemic emergent condition at this t dimitry. Patient is aware that her condition can change from initial presentation and she needs to monitor symptoms closely and seek medical attention if any acute changes. Conservative measures otherwise for symptoms. Recheck with your PCM in 2-3 days. Patient was also provided resources for detox. Return to the ED with any worsening/concerning symptoms otherwise as reviewed in discharge. Patient is in agreement. - Vital Signs Vital signs: Temp Pulse Resp BP Pulse Ox 98.6 F 103 H 18 97/84 L 99 01/24/19 07:49 01/24/19 07:49 01/24/19 07:49 01/24/19 07:49 01/24/19 07:49 - Laboratory Result Diagrams: 01/24/19 09:41 01/24/19 09:41 Laboratory results interpreted by me: 01/24/19 01/24/19 01/24/19 09:41 09:41 09:41 WBC 13.4 H Hct 35.9 L Absolute Neutrophils 10.2 H Alkaline Phosphatase 143 H Urine Protein 30 H Urine Urobilinogen 4.0 H Ur Leukocyte Esterase TRACE H Urine Ascorbic Acid 20 H Discharge - Discharge Clinical Impression: Pyelonephritis, Bacterial vaginosis Condition: Stable Disposition: HOME, SELF-CARE Instructions: Pyelonephritis ([facility]), Trimethoprim-Sulfa ([facility]) Additional Instructions: Maintain adequate fluid and food intake [place] diet ([employer] Bananas, rice, apples, toast, etc tylenol if needed Monitor for any worsening symptoms Make sure you are staying hydrated enough to urinate and have normal BM's Recheck with your PCM in 2-3 days Return to the ED with any worsening symptoms and/or development of fever, hea dache, chest pain, palpitations, syncope, shortness of breath, trouble breathing, abdominal pain, n/v/d, blood in stool/urine, weakness, or other worsening symptoms that are concerning to you. Prescriptions: Metronidazole [Flagyl] 500 mg PO BID #14 tablet Sulfamethoxazole/Trimethoprim [Bactrim Ds Tablet] 1 each PO BID #20 tablet Forms: Smoking Cessation Education Referrals: [facility] [Provider Group] - Follow up as needed SOURAV TYLER DO [ACTIVE STAFF] - Follow up as needed
[2019-01-24] MEDS ORDERED: IBUPROFEN 600 MG TABLET PO ONE (09:13)
[2019-01-24 09:31] LABS: BACTERIA (WET MOUNT) 4+ BACTERIA SEEN; EPITHELIALS (WET MOUNT) 4+ EPITHELIALS SEEN; RBCS (WET MOUNT) FEW RBCS SEEN; T.VAGINALIS (WET MOUNT) NO TRICHOMONAS SEEN; WBCS (WET MOUNT) 2+ WBCS SEEN; YEAST (WET MOUNT) NO YEAST SEEN
[2019-01-24 09:59] LABS: ABSOLUTE BASOPHILS # (AUTO) 0.1 10^3/uL (0.0-0.2); ABSOLUTE EOSINOPHILS # (AUTO) 0.1 10^3/uL (0.0-0.6); ABSOLUTE NEUT (AUTO) 10.2 10^3/uL (1.7-8.2); BASOPHILS % (AUTO) 0.7 % (0-2); EOSINOPHILS % (AUTO) 0.6 % (0-6); HEMATOCRIT 35.9 % (36.0-47.0); HEMOGLOBIN 12.1 g/dL (12.0-15.5); LYMPHOCYTES % (AUTO) 15.3 % (13-45); MEAN CORPUSCULAR HEMOGLOBIN 29.1 pg (27.0-33.4); MEAN CORPUSCULAR HGB CONC 33.6 g/dL (32.0-36.0); MEAN CORPUSCULAR VOLUME 87 fl (80-97); MONOCYTES % (AUTO) 7.3 % (3-13); PLATELET COUNT 280 10^3/uL (150-450); RED BLOOD COUNT 4.15 10^6/uL (3.72-5.28); RED CELL DISTRIBUTION WIDTH 13.5 % (11.5-14.0); SEGMENTED NEUTROPHILS % (AUTO) 76.1 % (42-78); TOTAL CELLS COUNTED % (AUTO) 100 %; WHITE BLOOD COUNT 13.4 10^3/uL (4.0-10.5)
[2019-01-24 10:06] LABS: AMORPHOUS SEDIMENT,URINE TRACE /HPF; APPEARANCE,URINE CLOUDY; BILIRUBIN,URINE NEGATIVE (NEGATIVE); COLOR,URINE YELLOW; GLUCOSE, URINE NEGATIVE (NEGATIVE); KETONES,URINE NEGATIVE (NEGATIVE); LEUKOCYTE ESTERASE,URINE TRACE (NEGATIVE); NITRITE,URINE NEGATIVE (NEGATIVE); PROTEIN,URINE 30 mg/dL (NEGATIVE); URINE SPECIFIC GRAVITY 1.023
[2019-01-24 10:16] LABS: ALANINE AMINOTRANSFERASE 34 U/L (9-52); ALBUMIN 4.3 g/dL (3.5-5.0); ALKALINE PHOSPHATASE 143 U/L (38-126); ANION GAP 13 (5-19); ASPARTATE AMINO TRANSFERASE 32 U/L (14-36); BILIRUBIN,DIRECT 0.4 mg/dL (0.0-0.4); BLOOD UREA NITROGEN 17 mg/dL (7-20); CARBON DIOXIDE 27 mmol/L (22-30); CHLORIDE 100 mmol/L (98-107); GLUCOSE 105 mg/dL (75-110); POTASSIUM 3.9 mmol/L (3.6-5.0); SODIUM 139.9 mmol/L (137-145)
[2019-01-24 10:58] LABS: GON PCR NOT DETECTED (NOT DETECT)
[2019-01-24 10:59] LABS: CHLAM PCR NOT DETECTED (NOT DETECT)
--- NOTE | 2019-01-24 11:07 | RADIOLOGY REPORT (SQ) ---
EXAM DESCRIPTION: U/S NON OB PEL TV W/DOPPLER COMPLETED DATE/TIME: 01/24/2019 10:28 am REASON FOR STUDY: pelvic pain COMPARISON: 2018. TECHNIQUE: Dynamic and static grayscale images acquired of the pelvis via transvaginal approach and recorded on PACS. Additional selected color Doppler and spectral images recorded. LIMITATIONS: None. FINDINGS: UTERUS: Suspected fibroids. Shadowing area measuring up to 1.8 cm close to the left ovary . ENDOMETRIAL STRIPE: No focal or generalized thickening. No masses. CERVIX: No nabothian cysts. RIGHT OVARY AND DOPPLER: Normal size. No worrisome masses. Normal arterial vascular flow without evid ence for torsion. LEFT OVARY AND DOPPLER: Normal size. No worrisome masses. Normal arterial vascular flow without evide nce for torsion. FREE FLUID: None noted. OTHER: No other significant finding. MEASUREMENTS: UTERUS: 8.0 x 3.1 x 5.9 cm ENDOMETRIAL STRIPE: 4.4 mm RIGHT OVARY: 3.2 x 3.2 x 2.3 cm LEFT OVARY: 3.3 x 2.2 x 2.5 cm IMPRESSION: Fibroid uterus. No ovarian torsion or suspicious findings. TECHNICAL DOCUMENTATION: JOB ID: [id number] [employer]- All Rights Reserved Rev-03/21 Reading location - IP/workstation name: [email or web address]
--- NOTE | 2019-01-24 11:53 | RADIOLOGY REPORT (SQ) ---
EXAM DESCRIPTION: CT ABD/PELVIS WITH IV ONLY COMPLETED DATE/TIME: 01/24/2019 11:26 am REASON FOR STUDY: RLQ pain COMPARISON: 2018 TECHNIQUE: CT scan of the abdomen and pelvis performed using helical scanning technique with dynamic intravenous contrast injection. No oral contrast. Images reviewed with lung, soft tissue, and bone windows. Reconstructed coronal and sagittal MPR images reviewed. Delayed images for evaluation of the urinary system also acquired. All images stored on PACS. All CT scanners at this facility use dose modulation, iterative reconstruction, and/or weight based d osing when appropriate to reduce radiation dose to as low as reasonably achievable (ALARA). [facility]: Dose Right [facility]: CareDose [facility]: Dose Right [facility]: Teradose 4D [facility]: [employer] CONTRAST TYPE AND DOSE: contrast/concentration: Isovue 350.00 mg/ml; Total Contrast Delivered: 73.0 ml; Total Saline Delivered: 66.0 ml RENAL FUNCTION: None required. The patient is less than 50 years old. RADIATION DOSE: CT Rad equipment meets quality standard of care and radiation dose reduction techniq ues were employed. CTDIvol: 5.2 - 6.8 mGy. DLP: 628 mGy-cm.. LIMITATIONS: None. FINDINGS: LOWER CHEST: Motion. Clear. LIVER: Normal size. No masses. No dilated ducts. SPLEEN: Top normal size without mass. PANCREAS: No masses. No significant calcifications. No adjacent inflammation or peripancreatic fluid collections. Pancreatic duct not dilated. GALLBLADDER: No identified stones by CT criteria. No inflammatory changes to suggest cholecystitis. ADRENAL GLANDS: No significant masses or asymmetry. RIGHT KIDNEY AND URETER: Heterogeneous enhancement in the lower pole with rounded low density area me asuring almost 3 cm. No obstruction. No drainable collections. LEFT KIDNEY AND URETER: No solid masses. No significant calcification. No hydronephrosis or hydrouret er. AORTA AND VESSELS: No aneurysm. No dissection. Renal arteries, SMA, celiac without stenosis. RETROPERITONEUM: No retroperitoneal adenopathy, hemorrhage or masses. BOWEL AND PERITONEAL CAVITY: Generally unremarkable. Fluid-filled distal loops, likely ileus. Moder ate stool. APPENDIX: Partially visualized. Probably normal. PELVIS: No mass. No free fluid. Normal bladder. ABDOMINAL WALL: No masses. No hernias. BONES: Postoperative changes at the lumbosacral junction. OTHER: No other significant finding. IMPRESSION: 1. Hypodense rounded area in the inferior pole right kidney is not seen in 2018. Unlikely to represe nt neoplasm in a patient of this age and given normal appearance of the kidney last year. Rather, th is is probably infectious/inflammatory. Concerning for pyelonephritis with probable phlegmon. TECHNICAL DOCUMENTATION: JOB ID: [id number] Quality ID # [id number]: Final reports with documentation of one or more dose reduction techniques (e.g., Au tomated exposure control, adjustment of the mA and/or kV according to patient size, use of iterative reconstruction technique) 2010 [employer]- All Rights Reserved Reading location - IP/workstation name: [email or web address]
== END 2019-01-24 12:30 | disposition home or self-care (01) ==
LOC: ER 07:31
DX: N12 Tubulo-interstitial nephritis, not specified as acute or chronic (principal); N76.0 Acute vaginitis; B96.89 Other specified bacterial agents as the cause of diseases classified elsewhere; R10.2 Pelvic and perineal pain; F17.200 Nicotine dependence, unspecified, uncomplicated; Z88.3 Allergy status to other anti-infective agents; Z88.6 Allergy status to analgesic agent; Z87.442 Personal history of urinary calculi; Z98.51 Tubal ligation status; Z98.1 Arthrodesis status
CPT/HCPCS: 36415; 74177; 76830; 80053; 81001; 81025; 85025; 87086; 87210; 87491; 87591; 93976; 99284

== ENCOUNTER 2019-01-26 22:23 | Emergency (ER) | payer SELFPAY ==
[2019-01-26] MEDS ORDERED: ONDANSETRON HCL INJ/PF 4 MG/2 ML SDV IV ONE (22:35)
--- NOTE | 2019-01-26 22:38 | ER Document Report ---
ED Medical Screen (RME) - General Chief Complaint: Flank Pain Stated Complaint: FLANK PAIN Time Seen by Provider: 01/26/19 22:34 Notes: Pt. was here 2 days ago, dx BV and pyelonephritis, taken meds as prescribed, pain is worse, +vomit I have greeted and performed a rapid initial assessment of this patient. A comprehensive ED assessment and evaluation of the patient, analysis of test results and completion of the medical decision making process will be conducted by additional ED providers. TRAVEL OUTSIDE OF THE [place] IN LAST 30 DAYS: No - Related Data Allergies/Adverse Reactions: erythromycin base [Erythromycin Base] Allergy (Unknown, Verified 01/24/19 07:34) acetaminophen [From Tylenol] Adverse Reaction (Verified 01/24/19 07:34) Past Medical History Endocrine Medical History: Denies: Hx Diabetes Mellitus Type 2 Renal/ Medical History: Reports: Hx Kidney Stones. Denies: Hx Peritoneal Dialysis Malignancy Medical History: Reports: Hx Skin Cancer GI Medical History: Reports: Hx Gastroesophageal Reflux Disease Musculoskeltal Medical History: Reports Hx Arthritis, Reports Hx Musculoskeletal Deformity, Reports Hx Musculoskeletal Trauma - Fractured right fifth metacarpal Psychiatric Medical History: Reports: Hx Anxiety, Hx Bipolar Disorder, Hx Depression Traumatic Medical History: Reports: Hx Fractures - Right fifth metacarpal Past Surgical History: Reports: Hx Bowel Surgery - polyps removed, Hx Orthopedic Surgery - spinal fusion, Hx Tubal Ligation - Immunizations Hx Diphtheria, Pertussis, Tetanus Vaccination: Yes - 2013 History of Influenza Vaccine for 08/2017 - 01/2018 Season: No
[2019-01-27] MEDS ORDERED: IBUPROFEN 400 MG TABLET PO ONE (03:45)
[2019-01-27] MEDS ORDERED: ONDANSETRON 4 MG TAB.RAPDIS ONE (03:47)
[2019-01-27] MEDS ORDERED: LIDOCAINE 5% (700 MG) TRANSDERMAL ADH..PATCH TP ONE (06:43)
[2019-01-27] MEDS ORDERED: KETOROLAC TROMETHAMINE INJ/PF 30 MG/1 ML SDV IV ONE (06:43)
[2019-01-27 07:18] LABS: APPEARANCE,URINE CLOUDY; BILIRUBIN,URINE NEGATIVE (NEGATIVE); COLOR,URINE DARK YELLOW; GLUCOSE, URINE NEGATIVE (NEGATIVE); KETONES,URINE NEGATIVE (NEGATIVE); LEUKOCYTE ESTERASE,URINE MODERATE (NEGATIVE); NITRITE,URINE NEGATIVE (NEGATIVE); PROTEIN,URINE 100 mg/dL (NEGATIVE); URINE SPECIFIC GRAVITY 1.032
[2019-01-27 07:34] LABS: URINE BARBITURATES SCREEN NEGATIVE; URINE BENZODIAZEPINES SCREEN NEGATIVE; URINE MARIJUANA (THC) SCREEN NEGATIVE; URINE METHADONE SCREEN NEGATIVE; URINE PHENCYCLIDINE SCREEN NEGATIVE
[2019-01-27] MEDS: NORMAL SALINE 1000 ML 1,000 ML IV PRN ×2 (08:00→08:02)
[2019-01-27 08:20] LABS: ABSOLUTE BASOPHILS # (AUTO) 0.1 10^3/uL (0.0-0.2); ABSOLUTE EOSINOPHILS # (AUTO) 0.1 10^3/uL (0.0-0.6); ABSOLUTE LYMPHOCYTES (AUTO) 1.1 10^3/uL (0.5-4.7); ABSOLUTE NEUT (AUTO) 11.9 10^3/uL (1.7-8.2); BASOPHILS % (AUTO) 0.5 % (0-2); EOSINOPHILS % (AUTO) 0.5 % (0-6); HEMATOCRIT 33.8 % (36.0-47.0); HEMOGLOBIN 11.5 g/dL (12.0-15.5); LYMPHOCYTES % (AUTO) 8.1 % (13-45); MEAN CORPUSCULAR HEMOGLOBIN 29.1 pg (27.0-33.4); MEAN CORPUSCULAR HGB CONC 33.9 g/dL (32.0-36.0); MEAN CORPUSCULAR VOLUME 86 fl (80-97); MONOCYTES % (AUTO) 6.9 % (3-13); PLATELET COUNT 284 10^3/uL (150-450); RED BLOOD COUNT 3.94 10^6/uL (3.72-5.28); RED CELL DISTRIBUTION WIDTH 13.5 % (11.5-14.0); TOTAL CELLS COUNTED % (AUTO) 100 %; WHITE BLOOD COUNT 14.2 10^3/uL (4.0-10.5)
[2019-01-27] MEDS ORDERED: NORMAL SALINE 1000 ML 1,000 ML IV ONE ×2 (08:35→09:00)
[2019-01-27 08:43] LABS: ALANINE AMINOTRANSFERASE 57 U/L (9-52); ALBUMIN 3.5 g/dL (3.5-5.0); ALKALINE PHOSPHATASE 181 U/L (38-126); ANION GAP 15 (5-19); ASPARTATE AMINO TRANSFERASE 30 U/L (14-36); BILIRUBIN,DIRECT 0.5 mg/dL (0.0-0.4); BILIRUBIN,TOTAL 0.5 mg/dL (0.2-1.3); BLOOD UREA NITROGEN 22 mg/dL (7-20); CALCIUM 9.6 mg/dL (8.4-10.2); CARBON DIOXIDE 19 mmol/L (22-30); CHLORIDE 106 mmol/L (98-107); GLUCOSE 125 mg/dL (75-110); LIPASE 39.5 U/L (23-300); POTASSIUM 4.2 mmol/L (3.6-5.0); SODIUM 139.7 mmol/L (137-145); TOTAL PROTEIN 7.3 g/dL (6.3-8.2)
--- NOTE | 2019-01-27 08:54 | RADIOLOGY REPORT (SQ) ---
EXAM DESCRIPTION: U/S ABDOMEN COMPLETE W/DOPPLER COMPLETED DATE/TIME: 01/27/2019 8:45 am REASON FOR STUDY: Evaluation of earlier seen phlegmon COMPARISON: CT abdomen pelvis dated 01/24/2019 TECHNIQUE: Dynamic and static grayscale images acquired of the abdomen and recorded on PACS. Additio nal selected color Doppler and spectral images recorded. Note: Study does not meet criteria for complete doppler/duplex scan LIMITATIONS: None. FINDINGS: PANCREAS: No masses. Visualized pancreatic duct normal caliber. The pancreas is obscured by overlying bowel gas. LIVER: No masses. Echotexture normal. LIVER VASCULATURE: Normal directional flow of the main portal vein and hepatic veins. GALLBLADDER: No stones. Normal wall thickness. No pericholecystic fluid. ULTRASOUND-DETECTED YOST'S SIGN: Negative. INTRAHEPATIC DUCTS AND COMMON DUCT: CBD and intrahepatic ducts normal caliber. No filling defects. INFERIOR VENA CAVA: Normal flow. AORTA: No aneurysm. RIGHT KIDNEY: Normal size. Normal echogenicity. There is a hypoechoic area adjacent to the right kidney. There appears to be subcapsular fluid collection is well. Renal abscess cannot be excluded . No hydronephrosis. LEFT KIDNEY: Normal size. Normal echogenicity. No solid or suspicious masses. No hydronephrosi s. No calcifications. SPLEEN: Normal size. No solid masses. PERITONEAL AND PLEURAL SPACES: No ascites or effusions. OTHER: No other significant finding. IMPRESSION: Probable subcapsular and/or right parenchymal renal abscess. CT is recommended for furt her evaluation. This collection may be amendable to percutaneous drainage. TECHNICAL DOCUMENTATION: JOB ID: [id number] [employer]- All Rights Reserved Reading location - IP/workstation name: [email or web address]
[2019-01-27] MEDS ORDERED: CEFTRIAXONE 1 GM/D5W RTU 1 GM/50 ML RTUPB IV ONE (08:59)
[2019-01-27] MEDS ORDERED: GABAPENTIN 300 MG CAPSULE PO ONE (09:28)
[2019-01-27] MEDS ORDERED: FENTANYL CITRATE INJ/PF 100 MCG/2 ML AMPUL IV ONE (09:31)
[2019-01-27 10:18] LABS: APPEARANCE,URINE TURBID; BILIRUBIN,URINE NEGATIVE (NEGATIVE); COLOR,URINE DARK YELLOW; GLUCOSE, URINE NEGATIVE (NEGATIVE); KETONES,URINE NEGATIVE (NEGATIVE); LEUKOCYTE ESTERASE,URINE SMALL (NEGATIVE); NITRITE,URINE NEGATIVE (NEGATIVE); PROTEIN,URINE 100 mg/dL (NEGATIVE); URINE SPECIFIC GRAVITY 1.031
--- NOTE | 2019-01-27 10:48 | RADIOLOGY REPORT (SQ) ---
EXAM DESCRIPTION: CT ABD/PELVIS WITH IV ONLY COMPLETED DATE/TIME: 01/27/2019 10:32 am REASON FOR STUDY: renal abscess COMPARISON: 01/24/2019 TECHNIQUE: CT scan of the abdomen and pelvis performed using helical scanning technique with dynamic intravenous contrast injection. No oral contrast. Images reviewed with lung, soft tissue, and bone windows. Reconstructed coronal and sagittal MPR images reviewed. Delayed images for evaluation of the urinary system also acquired. All images stored on PACS. All CT scanners at this facility use dose modulation, iterative reconstruction, and/or weight based d osing when appropriate to reduce radiation dose to as low as reasonably achievable (ALARA). [facility]: Dose Right [facility]: CareDose [facility]: Dose Right [facility]: Teradose 4D [facility]: Figma CONTRAST TYPE AND DOSE: contrast/concentration: Isovue 350.00 mg/ml; Total Contrast Delivered: 73.0 ml; Total Saline Delivered: 64.3 ml RENAL FUNCTION: BUN 22, creatinine 0.75 RADIATION DOSE: CT Rad equipment meets quality standard of care and radiation dose reduction techniq ues were employed. CTDIvol: NaN - NaN mGy. DLP: 0 mGy-cm.. LIMITATIONS: None. FINDINGS: LOWER CHEST: No significant findings. No nodules or infiltrates. LIVER: There is hepatomegaly. No focal masses. SPLEEN: There is splenomegaly. No focal masses. PANCREAS: No masses. No significant calcifications. No adjacent inflammation or peripancreatic fluid collections. Pancreatic duct not dilated. GALLBLADDER: No identified stones by CT criteria. No inflammatory changes to suggest cholecystitis. ADRENAL GLANDS: No significant masses or asymmetry. RIGHT KIDNEY AND URETER: There is a large right subcapsular fluid collections suspicious for abscess. Hemorrhage is thought to be less likely. This measures 8.2 x 3.5 cm in greatest dimensions. This is new from prior study. The focal 3.7 cm hypoattenuating collection in the medial aspect of the rig ht kidney is grossly unchanged. There is surrounding perinephric stranding. No significant calcifi cations. No hydronephrosis or hydroureter. LEFT KIDNEY AND URETER: No solid masses. No significant calcifications. No hydronephrosis or hydr oureter. AORTA AND VESSELS: No aneurysm. No dissection. Renal arteries, SMA, celiac without stenosis. RETROPERITONEUM: No retroperitoneal adenopathy, hemorrhage or masses. BOWEL AND PERITONEAL CAVITY: No masses or inflammatory changes. No free fluid or peritoneal masses. APPENDIX: Not visualized. PELVIS: No mass. No free fluid. Normal bladder. ABDOMINAL WALL: No masses. No hernias. BONES: There are postsurgical changes in the lumbar spine. OTHER: No other significant finding. IMPRESSION: Large right subcapsular fluid collection suspicious for abscess. Hypoattenuating collec tion along the medial aspect of the right kidney is grossly unchanged and may represent focal pyelone phritis. Hepatosplenomegaly unchanged. COMMENT: This report was called to GLYNN SCHWARTZ DO at10:45 on 01/27/2019. TECHNICAL DOCUMENTATION: JOB ID: [id number] Quality ID # [id number]: Final reports with documentation of one or more dose reduction techniques (e.g., Au tomated exposure control, adjustment of the mA and/or kV according to patient size, use of iterative reconstruction technique) 2010 [employer]- All Rights Reserved Reading location - IP/workstation name: [email or web address]
[2019-01-27] MEDS ORDERED: PIPERACILLIN/TAZOBACTAM 4.5 GM VIAL IV ONE (11:18)
--- NOTE | 2019-01-27 13:21 | ER Document Report ---
ED General - General Chief Complaint: Flank Pain Stated Complaint: FLANK PAIN Time Seen by Provider: 01/26/19 22:34 TRAVEL OUTSIDE OF THE [place] IN LAST 30 DAYS: No - HPI Patient complains to provider of: Right flank pain Notes: Patient coming in for evaluation of right flank pain. Patient was seen by the provider in triage his notes provided below Pt. was here 2 days ago, dx BV and pyelonephritis, taken meds as prescribed, pain is worse, +vomit Upon my evaluation patient is noted to be hypotensive. Patient states increased pain in the right flank. Patient does admit to be an IV drug user. Patient states he uses heroin patient has been positive for cocaine in her past visits. Patient states that he has been unable to tolerate her antibiotics that she was previously prescribed for her pyelonephritis Bactrim. Patient states she also has been having subjective fevers at home also chills and night sweats. Patient upon my evaluation is a no x3 and alert. A brief review of the patient's past medical records available in [employer] was performed - Related Data Allergies/Adverse Reactions: erythromycin base [Erythromycin Base] Allergy (Unknown, Verified 01/24/19 07:34) acetaminophen [From Tylenol] Adverse Reaction (Verified 01/24/19 07:34) Past Medical History - Social History Smoking Status: Current Every Day Smoker Drug Abuse: Heroin Family History: Reviewed & Not Pertinent Patient has suicidal ideation: No Patient has homicidal ideation: No Endocrine Medical History: Denies: Hx Diabetes Mellitus Type 2 Renal/ Medical History: Reports: Hx Kidney Stones. Denies: Hx Peritoneal Dialysis Malignancy Medical History: Reports: Hx Skin Cancer GI Medical History: Reports: Hx Gastroesophageal Reflux Disease Musculoskeletal Medical History: Reports Hx Arthritis, Reports Hx Musculoskeletal Deformity, Reports Hx Musculoskeletal Trauma - Fractured right fifth metacarpal Psychiatric Medical History: Reports: Hx Anxiety, Hx Bipolar Disorder, Hx Depression Traumatic Medical History: Reports: Hx Fractures - Right fifth metacarpal Past Surgical History: Reports: Hx Bowel Surgery - polyps removed, Hx Orthopedic Surgery - spinal fusion, Hx Tubal Ligation - Immunizations Hx Diphtheria, Pertussis, Tetanus Vaccination: Yes - 2013 Review of Systems - Review of Systems Constitutional: No symptoms reported EENT: No symptoms reported Cardiovascular: No symptoms reported Respiratory: No symptoms reported Gastrointestinal: No symptoms reported Genitourinary: Flank pain Female Genitourinary: No symptoms reported Musculoskeletal: No symptoms reported Skin: No symptoms reported Hematologic/Lymphatic: No symptoms reported Neurological/Psychological: No symptoms reported -: Yes All other systems reviewed and negative Physical Exam - Vital signs Vitals: Pulse Resp BP Pulse Ox 91 17 81/51 L 99 01/26/19 22:37 01/26/19 22:37 01/26/19 22:37 01/26/19 22:37 Interpretation: Normal - General General appearance: Appears well, Alert - HEENT Head: Normocephalic, Atraumatic Eyes: Normal Pupils: PERRL - Respiratory Respiratory status: No respiratory distress Chest status: Nontender Breath sounds: Normal Chest palpation: Normal - Cardiovascular Rhythm: Regular Heart sounds: Normal auscultation Murmur: No - Abdominal Inspection: Normal Distension: No distension Bowel sounds: Normal Tenderness: Tender - Right upper quadrant tenderness Organomegaly: No organomegaly - Back Back: Normal, Nontender, CVA tenderness - Right - Extremities General upper extremity: Normal inspection, Nontender, Normal color, Normal ROM, Normal temperature General lower extremity: Normal inspection, Nontender, Normal color, Normal ROM, Normal temperature, Normal weight bearing. No: Oxana's sign - Neurological Neuro grossly intact: Yes Cognition: Normal Orientation: AAOx4 Danilo Coma Scale Eye Opening: Spontaneous Danilo Coma Scale Verbal: Oriented [place] Coma Scale Motor: Obeys Commands Danilo Coma Scale Total: 15 Speech: Normal Motor strength normal: LUE, RUE, LLE, RLE Sensory: Normal - Psychological Associated symptoms: Normal affect, Normal mood - Skin Skin Temperature: Warm Skin Moisture: Dry Skin Color: Normal Notes: Track timmons and scabs throughout the patient's upper and lower extremities Course - Re-evaluation Re-evalutation: 01/27/19 13:17 Notified by the radiologist concern for possible abscess recommended repeat CT scan repeat CT scan now shows an 8 x 3 cm abscess subcapsular of the right kidney. Patient's blood pressure did improve with 2 L of IV fluids. Laboratory studies show slightly increase in white count. Decreasing bicarb suggestive of dehydration. Patient urinalysis initially shows significant contamination therefore a straight cath was performed. Notified by the radiology team that a window was present to drain the abscess however as that we have no urology coverage patient with more likely to be transferred. I have spoken with Dr. Grace of [facility] who is accepted the patient however currently there is no beds I have spoken with Dr. Goyal hospitalist and Dr. Goyal of urology of [facility] who also accepted the patient in transfer however currently have no beds. I have discussed patient's case with the transfer team at [facility] currently pending call back with accepting physician and room assignment currently they have no beds Patient blood pressure initially hypotensive has improved with IV fluids we will continue IV fluids patient will be placed on a full liquid diet at this time and scheduled IV antibiotics. Fentanyl will be given for the patient's pain will have to monitor the patient for possible withdrawal. A dose of gabapentin was given to the patient to help out with possible withdrawal symptoms. Otherwise patient waiting for transfer - Vital Signs Vital signs: Temp Pulse Resp BP Pulse Ox 98.2 F 82 20 101/64 98 01/27/19 12:03 01/27/19 06:40 01/27/19 12:03 01/27/19 12:03 01/27/19 12:03 - Laboratory Result Diagrams: 01/27/19 08:05 01/27/19 08:05 Laboratory results interpreted by me: 01/27/19 01/27/19 01/27/19 06:40 08:05 08:05 WBC 14.2 H Hgb 11.5 L Hct 33.8 L Seg Neutrophils % 84.0 H Lymphocytes % 8.1 L Absolute Neutrophils 11.9 H Carbon Dioxide 19 L BUN 22 H Glucose 125 H Direct Bilirubin 0.5 H ALT 57 H Alkaline Phosphatase 181 H Creatine Kinase Urine Protein 100 H Urine Urobilinogen 4.0 H Ur Leukocyte Esterase MODERATE H Urine Ascorbic Acid 20 H 01/27/19 01/27/19 08:05 09:32 WBC Hgb Hct Seg Neutrophils % Lymphocytes % Absolute Neutrophils Carbon Dioxide BUN Glucose Direct Bilirubin ALT Alkaline Phosphatase Creatine Kinase < 20 L Urine Protein 100 H Urine Urobilinogen 4.0 H Ur Leukocyte Esterase SMALL H Urine Ascorbic Acid 20 H Critical Care Note - Critical Care Note Total time excluding time spent on procedures (mins): 35 Comments: Multiple initial evaluation of the patient's hypotension which has resolved now with IV fluid Discharge - Discharge Clinical Impression: Right subcapsular kidney abscess, History of IV drug use, Hypotension resolved Condition: Stable
[2019-01-27] MEDS: FENTANYL CITRATE INJ/PF 100 MCG/2 ML AMPUL IV PRN ×3 (14:01→22:07)
[2019-01-27] MEDS ORDERED: IBUPROFEN 600 MG TABLET PO ONE (17:53)
[2019-01-27] MEDS ORDERED: ACETAMINOPHEN 325 MG TABLET PO ONE (17:53)
[2019-01-27] MEDS ORDERED: PIPERACILLIN/TAZOBACTAM 4.5 GM VIAL IV SCH (18:00)
[2019-01-27] MEDS ORDERED: ONDANSETRON HCL INJ/PF 4 MG/2 ML SDV IV ONE (18:28)
[2019-01-27 21:08] VITALS: BP 105/61
--- NOTE | 2019-01-27 22:52 | ER Document Report ---
Doctor's Note Notes: 01/27/19 22:51 Care of this patient was turned over to me at the beginning of my shift. She continued to get as needed pain medications as ordered by Dr. Portillo. I did go and evaluate the patient at 2240. She is stable, continuing to have pain, but getting some relief from the as needed fentanyl. Still amenable to gulshan castano, transferred in stable condition.
== END 2019-01-27 23:08 | disposition short-term general hospital (02) ==
LOC: ER 22:23
DX: N15.1 Renal and perinephric abscess (principal); I95.9 Hypotension, unspecified; R10.9 Unspecified abdominal pain; R11.10 Vomiting, unspecified; F17.200 Nicotine dependence, unspecified, uncomplicated; F19.10 Other psychoactive substance abuse, uncomplicated; Z88.6 Allergy status to analgesic agent; Z87.442 Personal history of urinary calculi; Z98.1 Arthrodesis status; Z88.3 Allergy status to other anti-infective agents; Z85.828 Personal history of other malignant neoplasm of skin
CPT/HCPCS: 96376; 99291; 96361; 96374; 96375; 36415; 87086; 82550; 83690; 85025; 87088; 80053; 81001; 80307; 76700; 93976; 74177; J3010; J3490; J1885; J2405; J7030; J0696; J2543; 87186